=== PATIENT | female | born 1950 | race Caucasian/White ===

== ENCOUNTER 2019-03-12 14:37 | Outpatient (RCR) | payer MEDICARE, MEDICAID, SELFPAY | END 2019-03-27 00:01 | LOC: WOUND 14:37 | PROVIDERS: Family Provider Family Medicine; Visit Provider Nurse Practitioner Family | DX: L98.412 Non-pressure chronic ulcer of buttock with fat layer exposed (principal) ==

== ENCOUNTER 2019-03-30 13:22 | Inpatient (IN) | payer MEDICARE, MEDICAID, SELFPAY ==
[2019-03-30] VITALS (11 sets, daily range): BP systolic 98–135; BP diastolic 60–83; PULSE 78–105; RESP 14–18; TEMP 36.9–37.2; O2SAT 95–100; BMI 31.4
--- NOTE | 2019-03-30 13:30 | ED_ITS ---
Entered by Juliet Yu, acting as scribe for HPI - General Adult General: Chief complaint: Altered Mental Status Stated complaint: low bp/poss sepsis Time Seen by Provider: 03/30/19 13:34 Source: EMS Mode of arrival: EMS History of Present Illness: HPI narrative: Josefina is a very nice 68-year-old female who comes in with a report of fatigue and low blood pressure. There is been no reported fevers that the patient has been on antibiotics in the past for UTIs as well as sacral decubitus ulcers. The patient denies chest pain, shortness of breath, headache, neck pain, abdominal pain, vomiting or diarrhea. MD complaint: possible sepsis Associated symptoms: Deny chest pain, confusion, diaphoresis, dyspnea, headache(s), malaise, nausea, rash, palpitations, syncope or vomiting Review of Systems General: Reports: other (negative unless marked) Const: Denies: fever, chills, body aches, fatigue, malaise or diaphoresis Eyes: Denies: change in vision or blurry vision ENMT: Denies: throat pain, painful swallowing, hoarseness, ear pain, ear discharge, Change in hearing or nasal discharge Card: Denies: chest pain, palpitations, irregular heart rhythm, syncope, pre-syncope, shortness of breath on exertion or shortness of breath when lying down Resp: Reports: productive cough; Denies: shortness of breath, non-productive cough, wheezing, coughing up blood or chest congestion GI: Denies: abdominal pain, nausea, vomiting, vomiting blood, coffee grounds in vomit, diarrhea, constipation, cramping, blood in stool or black tarry stool : Denies: flank pain, painful urination, urinary frequency, urinary urgency, decreased urine ouput, urinary incontinence or blood in urine Musc: Denies: neck pain, back pain, extremity pain, extremity swelling, joint pain, joint swelling, joint warmth or joint stiffness Skin/Breast: Denies: rash, skin tenderness or yellow skin Neuro: Denies: headache, numbness in extremities, weakness in extremities, changes in sensation, lack of coordination, difficulty walking, dizziness, vertigo or confusion Endo: Denies: excessive thirst, tired all the time, cold intolerance, excessive sweating, flushing or hot flashes Rafal/Lymph: Denies: easy bruising, easy bleeding, petechiae or enlarged lymph nodes All/Imm: Denies: hives, throat swelling, tongue swelling, facial swelling or acute wheezing PFSH ED PFSH: Statuses (acute, chronic, etc) shown below reflect problem list status as previously entered and may not be historically accurate Social History Smoking and tobacco status: former smoker Alcohol intake: never Substance/Drug Use: never Physical Exam Const: COMMON NORMALS: no apparent distress, oriented x3, no limitations, healthy appearing and well nourished EXAM LIMITATIONS: no altered mental status GENERAL APPEARANCE: cooperative, well kempt and well developed ORIENTATION/CONSCIOUSNESS: Yes awake HENMT: COMMON NORMALS: normocephalic, head/scalp atraumatic, hearing grossly normal bilaterally, external ears normal, EAC's normal, external nose normal and moist oral mucous membranes HEAD & SCALP: normal to inspection, normocephalic and atraumatic FACE & SINUS: normal facial exam and face symmetric NOSE: external nose normal and nares normal EXTERNAL EAR: Yes external ears normal EXTERNAL AUDITORY CANAL: EAC's normal MOUTH: oral and palatal mucosa normal and tongue normal Eye: COMMON NORMALS: PERRL, EOMs intact bilaterally, conjunctivae normal and no scleral icterus GENERAL EYE: normal appearance of both eyes and normal light reflex CONJUNCTIVA: Yes conjunctivae normal SCLERA: sclerae normal CORNEA: Yes corneas normal PUPIL: Yes PERRL DIRECT OPHTHALMOSCOPY: Yes normal light reflex Neck/C-Spine: COMMON NORMALS: full ROM, no lymphadenopathy, supple, no meningeal signs and no JVD GENERAL: Yes normal visual inspection and Yes trachea midline CERVICAL SPINE: Yes cervical ROM normal Chest: COMMONS NORMALS: inspection of chest normal and palpation of chest normal Resp: COMMON NORMALS: normal respiratory effort, no retractions, no use of accessory muscles and clear to auscultation bilaterally EFFORT & INSPECTION: Yes able to speak in complete sentences AUSCULTATION: clear to auscultation bilaterally Cardio: COMMON NORMALS: no JVD, regular rate, regular rhythm, S1 normal heart sound, S2 normal heart sound, no gallops, no clicks, no murmurs and no rub JUGULAR VENOUS DISTENTION: no JVD RATE: regular rate RHYTHM: regular rhythm HEART SOUNDS: S1 normal and S2 normal GI: COMMON NORMALS: soft to palpation, non-tender, no hepatosplenomegaly and no masses INSPECTION: Yes normal to inspection PALPATION: Yes soft and Yes no hepatosplenomegaly : COMMON NORMALS: Yes no CVA tenderness BLADDER/KIDNEY EXAM: Yes no CVA tenderness Back/Pelvis: COMMON NORMALS: no CVA tenderness, thoracic and lumbar spine normal to inspection, no thoracic nor lumbar tenderness and thoraco-lumbar ROM normal Extremity: COMMON NORMALS: normal to inspection, full ROM, normal capillary refill, no joint enlargement, no clubbing, cyanosis or edema and no calf tenderness Neuro: COMMON NORMALS: oriented x3, CN's II-XII intact bilaterally, moves all extremities, no focal motor deficits and no sensory deficits noted MENINGEAL SIGNS: Yes no meningeal signs Psych: COMMON NORMALS: mental status grossly normal, thought process normal, cooperative, affect normal, speech normal and activity/motor behavior normal APPEARANCE: Yes well kempt SPEECH: Yes normal speech THOUGHT PROCESS: normal thought process Skin: COMMON NORMALS: no rashes or lesions noted, skin turgor normal, no jaundice, no petechiae and no mottling GENERAL SKIN EXAM: no rashes or lesions noted and turgor normal Course Vital Signs: Vital signs: Vital Signs Temperature 98.9 F 03/31/19 03:52 Pulse Rate 90 03/31/19 05:26 Respiratory Rate 16 03/31/19 05:26 Blood Pressure 115/59 03/31/19 03:52 Pulse Oximetry 95 03/31/19 05:26 MDM - General Adult MDM Narrative: Medical decision making narrative: The patient presents from the custodial with altered mental status. The patient has had a sacral decubitus ulcer this being treated. Are going to put her on Primaxin. I have reviewed the case in full with Dr. Parry and he will come to see the patient in the ER. Lab Data: Labs: Lab Results 03/30/19 03/30/19 03/30/19 Range/Units 13:56 13:56 13:56 WBC 12.2 H (4.0-10.0) 10^3/ uL RBC 3.59 L (4.1-5.3) 10^6/u L Hgb 10.1 L (11.5-15.3) g/dL Hct 33.2 L (37.0-47.0) % MCV 92.5 (81-99) fL MCH 28.1 (28.0-34.0) pg MCHC 30.4 (30.0-36.0) g/dL RDW 17.0 H (12.1-15.1) % Plt Count 509 H (130-400) 10^3/c mm MPV 9.4 (7.4-10.4) fL Neut % (Auto) 77.9 % Lymph % (Auto) 14.5 % [place] % (Auto) 5.2 % Eos % (Auto) 1.6 % Baso % (Auto) 0.4 % Neut # (Auto) 9.5 H (1.8-7.7) 10^3/u L Lymph # (Auto) 1.8 (0.8-4.8) 10^3/u L [place] # (Auto) 0.6 (0.2-0.9) 10^3/u L Eos # (Auto) 0.2 (0.0-0.8) 10^3/u L Baso # (Auto) 0.1 (0.0-0.1) 10^3/u L Nucleated RBC % (a uto) 0 % Nucleated RBCs # 0.0 /100WBC ESR (0-15) mm/hr PT 15.40 H (10.5-13.3) SECO NDS INR 1.18 (0.8-1.2) Specimen Type Sample Site ABG pH (7.35-7.45) ABG pCO2 (35-45) mmHg ABG pO2 (80.0-100.0) mmH g ABG HCO3 (22-26) mmol/L ABG Base Excess (-2.0-2.0) mmol/ L Ben Test Hematocrit (37-47) % O2 Liters/Min % Order Checker Packer Processer ID Sodium 138 (136-145) mmol/L Potassium 3.6 (3.5-5.1) mmol/L Chloride 96 L (98-107) mmol/L Carbon Dioxide 30 H (22-29) mmol/L Anion Gap 15.6 (5-19) BUN 26 H (8-23) mg/dL Creatinine 0.4 L (0.5-0.9) mg/dL GFR Calculation 159.7 H (90-130) mL/min Glucose 156 H (74-106) mg/dL POC Glucose (70-110) mg/dL Lactate (0.5-2.2) mmol/L Calcium 8.7 L (8.8-10.2) mg/Dl Magnesium 1.6 L (1.7-2.3) mg/dL Total Bilirubin 0.2 (0.15-1.2) mg/dL AST 15 (0-32) U/L ALT 8 (0-33) U/L Alkaline Phosphata se 137 H (35-105) IU/L Troponin T Baselin e (0-10) ng/mL Troponin T 120 Min [place] (0-10) ng/mL Delta Troponin T (0-10) ABS# C-Reactive Protein (0.0-4.9) mg/L Total Protein 6.2 L (6.6-8.7) g/dL Albumin 2.2 L (3.5-5.2) g/dL Globulin 4.0 (1.3-4.6) g/dL Lipase 5 L (13-60) U/L Procalcitonin (0-0.8) ng/mL 03/30/19 03/30/19 03/30/19 Range/Units 13:56 13:56 13:58 WBC (4.0-10.0) 10^3/ uL RBC (4.1-5.3) 10^6/u L Hgb (11.5-15.3) g/dL Hct (37.0-47.0) % MCV (81-99) fL MCH (28.0-34.0) pg MCHC (30.0-36.0) g/dL RDW (12.1-15.1) % Plt Count (130-400) 10^3/c mm MPV (7.4-10.4) fL Neut % (Auto) % Lymph % (Auto) % [place] % (Auto) % Eos % (Auto) % Baso % (Auto) % Neut # (Auto) (1.8-7.7) 10^3/u L Lymph # (Auto) (0.8-4.8) 10^3/u L [place] # (Auto) (0.2-0.9) 10^3/u L Eos # (Auto) (0.0-0.8) 10^3/u L Baso # (Auto) (0.0-0.1) 10^3/u L Nucleated RBC % (a uto) % Nucleated RBCs # /100WBC ESR 49 H (0-15) mm/hr PT (10.5-13.3) SECO NDS INR (0.8-1.2) Specimen Type Sample Site ABG pH (7.35-7.45) ABG pCO2 (35-45) mmHg ABG pO2 (80.0-100.0) mmH g ABG HCO3 (22-26) mmol/L ABG Base Excess (-2.0-2.0) mmol/ L Ben Test Hematocrit (37-47) % O2 Liters/Min % Order Checker Packer Processer ID Sodium (136-145) mmol/L Potassium (3.5-5.1) mmol/L Chloride (98-107) mmol/L Carbon Dioxide (22-29) mmol/L Anion Gap (5-19) BUN (8-23) mg/dL Creatinine (0.5-0.9) mg/dL GFR Calculation (90-130) mL/min Glucose (74-106) mg/dL POC Glucose (70-110) mg/dL Lactate 3.9 H (0.5-2.2) mmol/L Calcium (8.8-10.2) mg/Dl Magnesium (1.7-2.3) mg/dL Total Bilirubin (0.15-1.2) mg/dL AST (0-32) U/L ALT (0-33) U/L Alkaline Phosphata se (35-105) IU/L Troponin T Baselin e 73 H (0-10) ng/mL Troponin T 120 Min [place] (0-10) ng/mL Delta Troponin T (0-10) ABS# C-Reactive Protein (0.0-4.9) mg/L Total Protein (6.6-8.7) g/dL Albumin (3.5-5.2) g/dL Globulin (1.3-4.6) g/dL Lipase (13-60) U/L Procalcitonin (0-0.8) ng/mL 03/30/19 03/30/19 03/30/19 Range/Units 14:03 14:15 15:54 WBC (4.0-10.0) 10^3/ uL RBC (4.1-5.3) 10^6/u L Hgb (11.5-15.3) g/dL Hct (37.0-47.0) % MCV (81-99) fL MCH (28.0-34.0) pg MCHC (30.0-36.0) g/dL RDW (12.1-15.1) % Plt Count (130-400) 10^3/c mm MPV (7.4-10.4) fL Neut % (Auto) % Lymph % (Auto) % [place] % (Auto) % Eos % (Auto) % Baso % (Auto) % Neut # (Auto) (1.8-7.7) 10^3/u L Lymph # (Auto) (0.8-4.8) 10^3/u L [place] # (Auto) (0.2-0.9) 10^3/u L Eos # (Auto) (0.0-0.8) 10^3/u L Baso # (Auto) (0.0-0.1) 10^3/u L Nucleated RBC % (a uto) % Nucleated RBCs # /100WBC ESR (0-15) mm/hr PT (10.5-13.3) SECO NDS INR (0.8-1.2) Specimen Type Arterial Sample Site Radial, left ABG pH 7.45 (7.35-7.45) ABG pCO2 46.9 H (35-45) mmHg ABG pO2 82.3 (80.0-100.0) mmH g ABG HCO3 32.7 H (22-26) mmol/L ABG Base Excess 7.8 H (-2.0-2.0) mmol/ L Ben Test Pos Hematocrit 30.9 L (37-47) % O2 Liters/Min 2.5 % Order Checker Packer Processer ID monro Sodium (136-145) mmol/L Potassium (3.5-5.1) mmol/L Chloride (98-107) mmol/L Carbon Dioxide (22-29) mmol/L Anion Gap (5-19) BUN (8-23) mg/dL Creatinine (0.5-0.9) mg/dL GFR Calculation (90-130) mL/min Glucose (74-106) mg/dL POC Glucose 157 (70-110) mg/dL Lactate (0.5-2.2) mmol/L Calcium (8.8-10.2) mg/Dl Magnesium (1.7-2.3) mg/dL Total Bilirubin (0.15-1.2) mg/dL AST (0-32) U/L ALT (0-33) U/L Alkaline Phosphata se (35-105) IU/L Troponin T Baselin e (0-10) ng/mL Troponin T 120 Min [place] 64.45 H (0-10) ng/mL Delta Troponin T -8.55 L (0-10) ABS# C-Reactive Protein (0.0-4.9) mg/L Total Protein (6.6-8.7) g/dL Albumin (3.5-5.2) g/dL Globulin (1.3-4.6) g/dL Lipase (13-60) U/L Procalcitonin (0-0.8) ng/mL 03/30/19 Range/Units 15:54 WBC (4.0-10.0) 10^3/ uL RBC (4.1-5.3) 10^6/u L Hgb (11.5-15.3) g/dL Hct (37.0-47.0) % MCV (81-99) fL MCH (28.0-34.0) pg MCHC (30.0-36.0) g/dL RDW (12.1-15.1) % Plt Count (130-400) 10^3/c mm MPV (7.4-10.4) fL Neut % (Auto) % Lymph % (Auto) % [place] % (Auto) % Eos % (Auto) % Baso % (Auto) % Neut # (Auto) (1.8-7.7) 10^3/u L Lymph # (Auto) (0.8-4.8) 10^3/u L [place] # (Auto) (0.2-0.9) 10^3/u L Eos # (Auto) (0.0-0.8) 10^3/u L Baso # (Auto) (0.0-0.1) 10^3/u L Nucleated RBC % (a uto) % Nucleated RBCs # /100WBC ESR (0-15) mm/hr PT (10.5-13.3) SECO NDS INR (0.8-1.2) Specimen Type Sample Site ABG pH (7.35-7.45) ABG pCO2 (35-45) mmHg ABG pO2 (80.0-100.0) mmH g ABG HCO3 (22-26) mmol/L ABG Base Excess (-2.0-2.0) mmol/ L Ben Test Hematocrit (37-47) % O2 Liters/Min % Order Checker Packer Processer ID Sodium (136-145) mmol/L Potassium (3.5-5.1) mmol/L Chloride (98-107) mmol/L Carbon Dioxide (22-29) mmol/L Anion Gap (5-19) BUN (8-23) mg/dL Creatinine (0.5-0.9) mg/dL GFR Calculation (90-130) mL/min Glucose (74-106) mg/dL POC Glucose (70-110) mg/dL Lactate (0.5-2.2) mmol/L Calcium (8.8-10.2) mg/Dl Magnesium (1.7-2.3) mg/dL Total Bilirubin (0.15-1.2) mg/dL AST (0-32) U/L ALT (0-33) U/L Alkaline Phosphata se (35-105) IU/L Troponin T Baselin e (0-10) ng/mL Troponin T 120 Min [place] (0-10) ng/mL Delta Troponin T (0-10) ABS# C-Reactive Protein 39.6 H (0.0-4.9) mg/L Total Protein (6.6-8.7) g/dL Albumin (3.5-5.2) g/dL Globulin (1.3-4.6) g/dL Lipase (13-60) U/L Procalcitonin 0.06 (0-0.8) ng/mL Imaging Data^: CXR: Radiologist's impression: [address] [address] XRay Report Signed Patient: Josefina Lara MR#: [id number] : 1950 Acct:[id number] Age/Sex: 68 / F ADM Date: 03/30/19 Loc: ER Attending Dr: Ordering Physician: Ankita Guzman DO Date of Service: 03/30/19 Procedure(s): XR chest 1V portable [id number] Accession Number(s): [id number] Report Number: [id number] WS: [id number] Portable AP upright chest, 03/30/2019 Clinical Data: cough Comparison: Portable chest, 03/11/2019. Findings: No nodules, masses or effusions are seen. The heart is normal. The pulmonary vascularity is not increased. No pneumonia or pneumothorax is seen. The right PICC line remains in good position ending in the superior vena cava. There is a levoscoliosis of the thoracic spine. XR/XR chest 1V portable [id number] Impression: Negative chest. Dictated By: Dora Hilliard MD Signed By: Dora Hilliard MD Signed Date/Time:03/30/19 1420 DD/ 1419 EKG Data^: EKG 1: Interpretation: EKG at 1335 -normal sinus rhythm at 91 beats a minute, normal axis, nonspecific ST and T wave changes, artifact present. Computer generated interpretation: Chest X-Ray 03/30/19 13:35 Impression: Negative chest. Abdomen/Pelvis CT 03/30/19 17:49 IMPRESSION: 1. Severe constipation with concern for impaction. This has progressed since the prior exam. 2. Unchanged chronic right subcapital femur fracture, osteopenia and severe bony degenerative changes. Stable compression fractures in the spine. 3. Unchanged nephrolithiasis and renal cysts. No hydronephrosis. Unchanged left adrenal myelolipoma and unchanged right renal mild lipoma. Radiation Dose CTDIVOL = (mGy): DLP = 2409.25 (mGy-cm) Discharge Plan Discharge Patient Disposition: Admitted As Inpatient Admit Provider: Marshall Parry Clinical Impression: Altered mental status Qualifiers: Altered mental status type: transient alteration of awareness Qualified Code(s): R40.4 - Transient alteration of awareness Condition: Stable Referrals: Tommie Feliz Jr, MD [Primary Care Provider] - Discharge Date/Time: 03/30/19 22:13 Coding Level of Care Code ED Floorwalker for Chg Fwd Exam Problem Focused The documentation recorded by the Gigi yao Bridget Annette, accurately reflects the service I personally performed and the decisions made by me, Ankita Guzman Mar 30, 2019 13:22
--- NOTE | 2019-03-30 13:35 | XR_ITS ---
WS: [id number] Portable AP upright chest, 03/30/2019 Clinical Data: cough Comparison: Portable chest, 03/11/2019. Findings: No nodules, masses or effusions are seen. The heart is normal. The pulmonary vascularity is not increased. No pneumonia or pneumothorax is seen. The right PICC line remains in good position en ding in the superior vena cava. There is a levoscoliosis of the thoracic spine. XR/XR chest 1V portable [id number] Impression: Negative chest.
--- NOTE | 2019-03-30 13:38 | ECG_ITS ---
Measurements Intervals [place] Rate: 91 P: 76 MS: 125 QRS: 75 QRSD: 122 T: 46 QT: 385 QTc: 475 SINUS RHYTHM POSSIBLE RIGHT VENTRICULAR CONDUCTION DELAY [RSR (QR) IN V1/V2] NONSPECIFIC T-WAVE ABNORMALITY Compared to ECG 02/27/2019 17:09:15 Incomplete right bundle-branch block no longer present T-wave abnormality still present Electronically Signed On 03-30-2019 15:07:54 HEALTH INFORMATION MANAGEMENT DIRECTOR by Jewels Pitts M.D. [email or web address]
[2019-03-30 14:12] LABS: Basophils # 0.1 10^3/uL (0.0-0.1); Basophils % 0.4 %; Eosinophils # 0.2 10^3/uL (0.0-0.8); Eosinophils % 1.6 %; Hematocrit 33.2 % (37.0-47.0); Hemoglobin 10.1 g/dL (11.5-15.3); Lymphocytes # 1.8 10^3/uL (0.8-4.8); Lymphocytes % 14.5 %; Mean Corpuscular HGB Conc 30.4 g/dL (30.0-36.0); Mean Corpuscular Hemoglobin 28.1 pg (28.0-34.0); Mean Corpuscular Volume 92.5 fL (81-99); Mean Platelet Volume 9.4 fL (7.4-10.4); Monocytes # 0.6 10^3/uL (0.2-0.9); Monocytes % 5.2 %; Neutrophils # 9.5 10^3/uL (1.8-7.7); Neutrophils % 77.9 %; Nucleated Red Blood Cells % 0 %; Platelet Count 509 10^3/cmm (130-400); Red Blood Count 3.59 10^6/uL (4.1-5.3); White Blood Count 12.2 10^3/uL (4.0-10.0)
[2019-03-30 14:19] LABS: INR 1.18 (0.8-1.2)
[2019-03-30 14:25] LABS: Lactate (Lactic Acid level) 3.9 mmol/L (0.5-2.2)
[2019-03-30 14:28] LABS: Alanine Aminotransferase 8 U/L (0-33); Albumin Level 2.2 g/dL (3.5-5.2); Alkaline Phosphatase 137 IU/L (35-105); Anion Gap 15.6 (5-19); Aspartate Amino Transferase 15 U/L (0-32); Blood Urea Nitrogen 26 mg/dL (8-23); Calcium 8.7 mg/Dl (8.8-10.2); Carbon Dioxide 30 mmol/L (22-29); Chloride 96 mmol/L (98-107); Glomerular Filtration Rate 159.7 mL/min (90-130); Glucose 156 mg/dL (74-106); Lipase 5 U/L (13-60); Magnesium 1.6 mg/dL (1.7-2.3); Potassium 3.6 mmol/L (3.5-5.1); Sodium 138 mmol/L (136-145); Total Bilirubin 0.2 mg/dL (0.15-1.2); Total Protein 6.2 g/dL (6.6-8.7)
[2019-03-30 14:29] LABS: Troponin(5th) Baseline 73 ng/mL (0-10)
[2019-03-30 14:29] LABS: ABG PCO2 46.9 mmHg (35-45); ABG PH Result 7.45 (7.35-7.45); Arterial Blood Gas Hematocrit 30.9 % (37-47); Base Excess ABG 7.8 mmol/L (-2.0-2.0); Blood Gas Allen Test Pos; Blood Gas LPM 2.5 %; Blood Gas Sample Site Radial, left; Blood Gas Sample Type Arterial; HCO3 ABG 32.7 mmol/L (22-26); PO2 ABG 82.3 mmHg (80.0-100.0)
[2019-03-30] MEDS: sodium chloride 0.9% 1,000 ML 999 ML IV ×2 (14:40→21:23)
[2019-03-30 15:09] LABS: Glucose Point of Care 157 mg/dL (70-110)
--- NOTE | 2019-03-30 15:38 | ECG_ITS ---
Measurements Intervals [facility] Rate: 87 P: 73 MS: 140 QRS: 66 QRSD: 90 T: 45 QT: 378 QTc: 456 SINUS RHYTHM LOW QRS VOLTAGE IN PRECORDIAL LEADS [QRS DEFLECTION < 1.0 mV IN CHEST LEADS] POSSIBLE RIGHT VENTRICULAR CONDUCTION DELAY [RSR (QR) IN V1/V2] WARNING: DATA QUALITY MAY AFFECT INTERPRETATION Compared to ECG 03/30/2019 13:35:37 Low QRS voltage now present T-wave abnormality no longer present Electronically Signed On 03-31-2019 15:03:04 MERCHANDISE DISPLAYER by Merry Ivan M.D. [email or web address]
[2019-03-30 16:14] LABS: Troponin 5 2HR 64.45 ng/mL (0-10)
[2019-03-30 16:17] LABS: Troponin 5 2HR Delta -8.55 ABS# (0-10)
--- NOTE | 2019-03-30 17:49 | CTR_ITS ---
PROCEDURE INFORMATION: Exam: CT Abdomen And Pelvis With Contrast Exam date and time: 03/30/2019 6:45 PM Age: 68 years old Clinical indication: Abdominal pain; Generalized; Additional info: Sacral decubitus ulcere, with sepsis, r/ osteom TECHNIQUE: Imaging protocol: Computed tomography of the abdomen and pelvis with intravenous contrast. Total DLP: 2409.25 mGy-cm Radiation optimization: All CT scans at this facility use at least one of these dose optimization techniques: automated exposure control; mA and/or kV adjustment per patient size (includes targeted exams where dose is matched to clinical indication); or iterative reconstruction. Contrast material: OMNI 300; Contrast volume: 95 ml; Contrast route: LT AC; COMPARISON: CT Abdomen/Pelvis w IV* [id number] 02/28/2019 4:48 AM FINDINGS: Tubes, catheters and devices: A balloon bladder catheter is present. Lungs: There is subpleural atelectasis of the dependent portions of the lungs. Pleural space: There is unchanged mild pleural thickening. Heart: Mitral valve calcification is again noted. Liver: There is a diffuse decrease in hepatic parenchymal density, consistent with fatty infiltration. Gallbladder and bile ducts: Normal. No calcified stones. No ductal dilation. Pancreas: Normal. No ductal dilation. Spleen: Normal. No splenomegaly. Adrenals: There is an unchanged 1.5 cm left adrenal myelolipoma. Kidneys and ureters: There is a 3 cm fluid density cyst upper pole left kidney. There is a 5.0 cm cyst midpole right kidney. There are multiple renal hypodensities that cannot be further characterized on the current examination. There is bilateral nephrolithiasis. The largest calculus is midpole right kidney measuring 8 mm in size. Largest calculus on the left measures 5 mm. There is no hydronephrosis or obstructing calculus. Lobulated collection of fat in the midpole right kidney is unchanged and is a probable myelolipoma measuring 3.3 cm in size. Stomach and bowel: There is a large amount of stool in the colon compatible with severe constipation. There is concern for impaction with marked distension of the distal sigmoid colon and rectum. There is mild rectal wall thickening and perirectal edema compatible with reactive change. This has progressed since the prior exam. Appendix: A normal appendix is identified. Intraperitoneal space: Unremarkable. No free air. No significant fluid collection. Vasculature: The aorta demonstrates moderate atherosclerotic calcification. Lymph nodes: Unremarkable.No enlarged lymph nodes. Bladder: Unremarkable as visualized. Reproductive: Unremarkable as visualized. Bones/joints: Diffuse osteopenia with severe degenerative changes in the lower lumbar spine are noted. Chronic appearing right subcapital femur fracture is unchanged. Osteopenia with model sclerosis and lucency in the left femoral head is unchanged. No acute bony fracture. Chronic appearing compression fracture deformity of L2 and L4 is unchanged. Soft tissues: Unremarkable. Other findings: No ileus or obstruction. CT/CT abdomen pelvis w con* [id number] IMPRESSION: 1. Severe constipation with concern for impaction. This has progressed since the prior exam. 2. Unchanged chronic right subcapital femur fracture, osteopenia and severe bony degenerative changes. Stable compression fractures in the spine. 3. Unchanged nephrolithiasis and renal cysts. No hydronephrosis. Unchanged left adrenal myelolipoma and unchanged right renal mild lipoma. Radiation Dose CTDIVOL = (mGy): DLP = 2409.25 (mGy-cm)
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
[2019-03-30 18:22] LABS: Procalcitonin 0.06 ng/mL (0-0.8)
[2019-03-30 18:28] LABS: Lactic Sepsis W/Reflex 3.4 mmol/L (0.5-2.2)
[2019-03-30 18:40] LABS: C Reactive Protein 39.6 mg/L (0.0-4.9)
[2019-03-30 18:45] LABS: Erythrocyte Sedimentation Rate 49 mm/hr (0-15)
--- NOTE | 2019-03-30 19:30 | PC.NURSE ---
Upon rotating pt from right side to left side, it was noted that her catheter was leaking. 10cc of saline was placed in balloon. Will re-evaluate the catheter again.
--- NOTE | 2019-03-30 19:50 | PC.NURSE ---
Pt gone to radiology.
[2019-03-30 19:53] LABS: Reflex Lactate Order Y
[2019-03-30 21:37] LABS: Troponin 5 6HR 57.35 ng/L (0-10)
[2019-03-30 21:40] LABS: Troponin 5 6HR Delta -15.35 ng/L (0-12)
[2019-03-30 23:47] LABS: Urine Appearance Hazy (CLEAR); Urine Color Yellow (Yellow)
[2019-03-30 23:48] LABS: Bilirubin Urine Neg (NEGATIVE); Blood Urine 3+ (Negative); Glucose Urine UA Norm (Normal); Ketones Urine Negative (Negative); Leukocyte Esterase Urine 1+ (Negative); Nitrate Urine Negative (Negative); Protein Urine Trace (Negative); Specific Gravity, Urine 1.005 (1.005-1.030); Sulfosalicylic Acid Urine Negative; Urobilinogen Urine Norm (Negative); pH Urine 8 (5-7)
[2019-03-30 23:49] LABS: Add Urine Culture? No; Bacteria Urine 1+; RBC Urine 15-25 /hpf (0-2); WBC Urine 40-55 /hpf (0-5)
[2019-03-31] VITALS (11 sets, daily range): BP systolic 105–124; BP diastolic 50–71; PULSE 78–96; RESP 12–20; TEMP 36.6–37.2; O2SAT 94–99
[2019-03-31] MEDS: apixaban 5 mg Tablet 2.5 MG PO ×3 (00:02→17:19)
[2019-03-31] MEDS: atorvastatin 40 mg Tablet 20 MG PO ×2 (00:02→17:17)
[2019-03-31] MEDS: ascorbic acid 500 mg Tablet 1000 MG PO ×3 (00:05→17:19)
[2019-03-31] MEDS: tamsulosin 0.4 mg Capsule PO ×3 (00:06→17:18)
[2019-03-31] MEDS: baclofen 10 mg Tablet PO ×3 (00:06→17:19)
[2019-03-31] MEDS: trazodone 50 mg Tablet PO ×2 (00:06→20:35)
[2019-03-31] MEDS: artificial tears Op Soln 15 mL Btl 1 DROP EYE-BOTH ×5 (00:07→20:34)
[2019-03-31] MEDS: docusate sodium 100 mg Capsule PO ×4 (00:07→17:19)
--- NOTE | 2019-03-31 01:57 | PC.NURSE ---
PT CAME TO FLOOR FROM ED TO ICU10. PT IS NON WEIGHT BEARING AND WAS A TOTAL ASSIST. PT IS IN SINUS RHYTHM. VS T 98.9, HR 89, RR 17, BP 123/75, SPO2 100%. PT HAS PRESSURE ULCERS. ONE IS ON THE SACRUM 5.5X10.4 WITH A DEPTH OF 2.7. THE OTHER IS ON THE RIGHT GLUTEAL FOLD 6.7X6.5 WITH A DEPTH OF 4.0. BOTH HAVE GENTIAN JALYN ON THEM. PT IS A&OX4 AND WAS ABLE TO ANSWER MY QUESTIONS. PT HAS A PICC LINE IN THE RIGHT UA AND A PIDD IN THE LEFT FA, BOTH ARE PATIENT. WILL CONTINUE TO MONITOR.
[2019-03-31 05:30] LABS: Basophils % 0.3 %; Eosinophils # 0.3 10^3/uL (0.0-0.8); Eosinophils % 2.3 %; Hematocrit 30.3 % (37.0-47.0); Hemoglobin 9.3 g/dL (11.5-15.3); Lymphocytes # 1.5 10^3/uL (0.8-4.8); Lymphocytes % 13.7 %; Mean Corpuscular HGB Conc 30.7 g/dL (30.0-36.0); Mean Corpuscular Hemoglobin 29.2 pg (28.0-34.0); Mean Platelet Volume 9.1 fL (7.4-10.4); Monocytes # 0.8 10^3/uL (0.2-0.9); Monocytes % 7.4 %; Neutrophils # 8.4 10^3/uL (1.8-7.7); Neutrophils % 75.8 %; Nucleated Red Blood Cells % 0 %; Platelet Count 418 10^3/cmm (130-400); Red Blood Count 3.19 10^6/uL (4.1-5.3); White Blood Count 11.1 10^3/uL (4.0-10.0)
[2019-03-31 05:51] LABS: INR 1.26 (0.8-1.2)
[2019-03-31 06:01] LABS: Alanine Aminotransferase 7 U/L (0-33); Albumin Level 2.3 g/dL (3.5-5.2); Alkaline Phosphatase 125 IU/L (35-105); Anion Gap 13.6 (5-19); Aspartate Amino Transferase 13 U/L (0-32); Blood Urea Nitrogen 17 mg/dL (8-23); Calcium 8.2 mg/Dl (8.8-10.2); Carbon Dioxide 31 mmol/L (22-29); Chloride 98 mmol/L (98-107); Globulin 2.9 g/dL (1.3-4.6); Glomerular Filtration Rate 222.6 mL/min (90-130); Glucose 90 mg/dL (74-106); Magnesium 1.5 mg/dL (1.7-2.3); Phosphorus 3.5 mg/dL (2.5-4.5); Potassium 3.6 mmol/L (3.5-5.1); Sodium 139 mmol/L (136-145); Total Bilirubin 0.2 mg/dL (0.15-1.2); Total Protein 5.2 g/dL (6.6-8.7)
[2019-03-31 07:19] LABS: Glucose Point of Care 93 mg/dL (70-110)
[2019-03-31] MEDS: glycerin adult supp 1 EACH PR (08:37)
[2019-03-31] MEDS: allopurinol 100 mg Tablet 200 MG PO (08:38)
[2019-03-31] MEDS: pantoprazole DR 40 mg Tablet PO (08:39)
[2019-03-31] MEDS: aspirin 81 mg EC Tablet PO (08:39)
[2019-03-31] MEDS: lurasidone 20 mg Tablet 40 MG PO (08:39)
[2019-03-31] MEDS: FUROsemide 20 mg Tablet PO (08:39)
[2019-03-31] MEDS: levothyroxine 50 mcg Tablet PO (08:39)
[2019-03-31] MEDS: polyethylene glycol 3350 Pkt 17 gm PO (08:39)
[2019-03-31] MEDS: duloxetine 60 mg Capsule PO (08:40)
[2019-03-31 11:00] LABS: Glucose Point of Care 110 mg/dL (70-110)
--- NOTE | 2019-03-31 13:00 | PC.CHAP ---
The patient requested no Clergy visits. Chaplain Carmen Nelson
--- NOTE | 2019-03-31 13:08 | PC.PHAR ---
Pharmacy fall risk eval. Meds to consider for possible concern for sedation, dizziness, orthostatic hypotension(combinations could increase risk) Baclofen Cymbalta Latuda remeron trazodone risperidone Trazodone Nitroglycerin.
[2019-03-31 15:50] LABS: Vancomycin Trough 25.2 ug/mL (10-15)
--- NOTE | 2019-03-31 16:35 | PC.NURSE ---
repositoned frequently and emigdio care done as some bladder spasms noted with incontinence of urine open areas on bottom with prism in wound and covered with optifoam.
[2019-03-31 16:54] LABS: Glucose Point of Care 112 mg/dL (70-110)
--- NOTE | 2019-03-31 17:40 | PC.PT ---
PT note; Dr. 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
--- NOTE | 2019-03-31 19:27 | P.PN_ITS ---
Subjective Subjective: Interval history: awake, alert, able to converse in full meaningful sentences. afebrile, hemodynamically stable, no acute overnight events. eating breakfast this morning Medications: Reviewed: Yes Vitals/I&O/Wt Last Vital Signs Temp 97.9 F 03/31/19 16:00 Pulse 86 03/31/19 16:00 Resp 20 H 03/31/19 16:00 BP 124/57 03/31/19 16:00 Pulse Ox 96 03/31/19 16:00 03/31/19 03/31/19 03/31/19 06:59 14:59 22:59 Intake Total 710 / 1810 900 / 900 554.167 / 1454.167 Output Total 750 / 750 1000 / 1000 Balance -40 / 1060 900 / 900 -445.833 / 454.167 Weight last 48 hrs Weight 88.949 kg Weight 85.729 kg Physical Exam Const: COMMON NORMALS: no apparent distress, oriented x3 and alert Neck/C-Spine: COMMON NORMALS: no JVD Resp: COMMON NORMALS: normal respiratory effort, no retractions, no use of accessory muscles, clear to auscultation bilaterally and percussion normal AUSCULTATION: clear to auscultation bilaterally PERCUSSION: percussion normal Cardio: COMMON NORMALS: no JVD, regular rate, regular rhythm, S1 normal heart sound, S2 normal heart sound, no gallops, no clicks, no murmurs, no rub and peripheral pulses 2+ throughout RATE: regular rate RHYTHM: regular rhythm HEART SOUNDS: S1 normal and S2 normal PERIPHERAL PULSES: pulses 2+ throughout GI: COMMON NORMALS: normal to inspection, nondistended, normoactive bowel sounds, soft to palpation, non-tender, no hepatosplenomegaly, no masses and no bruits PALPATION: Yes soft and Yes no hepatosplenomegaly Neuro: COMMON NORMALS: oriented x3 SENSORIUM/ORIENTATION: Yes alert Urinary Catheter Management^: Ibrahim: Cath Placed During This Visit: no Data Micro: Micro: Microbiology 03/31/19 01:15 Gram Stain - Final Buttock 03/31/19 01:15 Gram Stain - Final Buttock 03/30/19 13:58 Blood Culture - Pr eliminary Blood NEGATIVE TO MARISA E 03/30/19 13:56 Blood Culture - Pr eliminary Blood NEGATIVE TO MARISA E A&P Assessment and plan (1) Sepsis: -Possible sources of infection include chronic Ibrahim, chronic sacral decubitus ulcers -Patient has a history of ESBL E. coli UTIs secondary to chronic Ibrahim cath, secondary to neurogenic bladder -Chronic sacral decubitus ulcers, status debridement, status post IV antibiotics, wounds look clean, good granulation tissue, no foul odor, no discharge noted -follow pending Blood cultures, urine cultures, wound cultures -Broad-spectrum antibiotics Primaxin and vancomycin -DVT prophylaxis Lovenox -Protonix for GI prophylaxis -Wound care for decubitus ulcers Status: Acute Code(s): A41.9 - Sepsis, unspecified organism (2) Recurrent UTI: -Secondary to ESBL E. coli UTI Status: Acute Code(s): N39.0 - Urinary tract infection, site not specified (3) Normocytic anemia: -Hemoglobin is stable at 10.1, status post 4 units PRBC on last admission Status: Acute Code(s): D64.9 - Anemia, unspecified (4) Chronic indwelling Ibrahim catheter: Secondary to neurogenic bladder Status: Acute Code(s): Z96.0 - Presence of urogenital implants (5) Neurogenic bladder: Status: Acute Code(s): N31.9 - Neuromuscular dysfunction of bladder, unspecified (6) Decubitus ulcer of coccygeal region: -Wound care Status: Acute Code(s): L89.159 - Pressure ulcer of sacral region, unspecified stage (7) Paroxysmal A-fib: -Continue Eliquis -As far I can see she is not on any rate control medications Status: Acute Code(s): I48.0 - Paroxysmal atrial fibrillation (8) DVT (deep venous thrombosis): Continue Eliquis Status: Acute Code(s): I82.409 - Acute embolism and thrombosis of unspecified deep veins of unspecified lower extremity (9) Oxygen dependent: Status: Acute Code(s): Z99.81 - Dependence on supplemental oxygen (10) Sacral decubitus ulcer: Wound care Status: Acute Code(s): L89.159 - Pressure ulcer of sacral region, unspecified stage (11) Multiple sclerosis: Status: Acute Code(s): G35 - Multiple sclerosis (12) Non-insulin dependent type 2 diabetes mellitus: Low-dose sliding scale Status: Acute Code(s): E11.9 - Type 2 diabetes mellitus without complications (13) CVA (cerebral vascular accident): Left-sided deficits Status: Acute Code(s): I63.9 - Cerebral infarction, unspecified (14) Altered mental status: Likely secondary to sepsis secondary UTI and sacral coccygeal ulcers Status: Acute Qualifiers: Altered mental status type: transient alteration of awareness Qualified Code(s): R40.4 - Transient alteration of awareness Code(s): R41.82 - Altered mental status, unspecified (15) Elevated troponin: Likely supply demand ischemia related to sepsis No active chest pain Baseline troponin in the 70s, negative delta EKG no ST-T significant wave changes Plan Continue telemetry monitoring, troponins as per protocol, monitor for chest pain, already on aspirin and statin Status: Acute Code(s): R79.89 - Other specified abnormal findings of blood chemistry Attestations Medical Necessity Statement*: sepsis undergoing evlautaion Coding Level of Care Code Acute 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
[2019-03-31] MEDS: mirtazapine 15 mg Tablet 7.5 MG PO ×2 (20:35)
[2019-03-31 22:07] LABS: Glucose Point of Care 124 mg/dL (70-110)
[2019-04-01] VITALS (10 sets, daily range): BP systolic 100–136; BP diastolic 56–76; PULSE 60–85; RESP 15–22; TEMP 36.3–37.2; O2SAT 94–99
--- NOTE | 2019-04-01 04:47 | PC.NURSE ---
PICC REMOVAL Nurse assessed PICC upon transfer from ICU, PICC insertion area appears red, swollen. Dr Nazario notified, pic of PICC line sent to Dr Nazario via [employer] phone. Orders received to DC PICC and send catheter tip to lab for culture. PICC discontinued via sterile procedure, cath tip sent to lab for culture, patient tolerated well.
[2019-04-01 06:32] LABS: Basophils % 0.4 %; Eosinophils # 0.4 10^3/uL (0.0-0.8); Eosinophils % 4.7 %; Hematocrit 31.4 % (37.0-47.0); Hemoglobin 9.5 g/dL (11.5-15.3); Lymphocytes # 1.2 10^3/uL (0.8-4.8); Lymphocytes % 13.8 %; Mean Corpuscular HGB Conc 30.3 g/dL (30.0-36.0); Mean Corpuscular Hemoglobin 28.1 pg (28.0-34.0); Mean Corpuscular Volume 92.9 fL (81-99); Mean Platelet Volume 9.4 fL (7.4-10.4); Monocytes # 0.6 10^3/uL (0.2-0.9); Monocytes % 6.2 %; Neutrophils # 6.7 10^3/uL (1.8-7.7); Neutrophils % 74.5 %; Nucleated Red Blood Cells % 0 %; Platelet Count 410 10^3/cmm (130-400); Red Blood Count 3.38 10^6/uL (4.1-5.3); Red Cell Distribution Width 17.2 % (12.1-15.1)
[2019-04-01 06:49] LABS: Alanine Aminotransferase 7 U/L (0-33); Albumin Level 2.2 g/dL (3.5-5.2); Alkaline Phosphatase 125 IU/L (35-105); Anion Gap 14.2 (5-19); Aspartate Amino Transferase 13 U/L (0-32); Blood Urea Nitrogen 14 mg/dL (8-23); Calcium 8.6 mg/Dl (8.8-10.2); Carbon Dioxide 28 mmol/L (22-29); Chloride 100 mmol/L (98-107); Globulin 3.2 g/dL (1.3-4.6); Glomerular Filtration Rate 123.4 mL/min (90-130); Glucose 99 mg/dL (74-106); Magnesium 1.5 mg/dL (1.7-2.3); Phosphorus 3.5 mg/dL (2.5-4.5); Potassium 3.2 mmol/L (3.5-5.1); Sodium 139 mmol/L (136-145); Total Bilirubin 0.2 mg/dL (0.15-1.2); Total Protein 5.4 g/dL (6.6-8.7)
[2019-04-01 08:50] LABS: Glucose Point of Care 113 mg/dL (70-110)
[2019-04-01] MEDS: allopurinol 100 mg Tablet 200 MG PO (10:45)
[2019-04-01] MEDS: apixaban 5 mg Tablet 2.5 MG PO ×2 (10:46→18:44)
[2019-04-01] MEDS: artificial tears Op Soln 15 mL Btl 1 DROP EYE-BOTH ×3 (10:46→18:48)
[2019-04-01] MEDS: baclofen 10 mg Tablet PO ×2 (10:47→18:44)
[2019-04-01] MEDS: aspirin 81 mg EC Tablet PO (10:47)
[2019-04-01] MEDS: ascorbic acid 500 mg Tablet 1000 MG PO ×2 (10:47→18:44)
[2019-04-01] MEDS: duloxetine 60 mg Capsule PO (10:48)
[2019-04-01] MEDS: FUROsemide 20 mg Tablet PO (10:48)
[2019-04-01] MEDS: duloxetine 30 mg Capsule PO (10:48)
[2019-04-01] MEDS: docusate sodium 100 mg Capsule PO ×3 (10:48→18:44)
[2019-04-01] MEDS: pantoprazole DR 40 mg Tablet PO (10:49)
[2019-04-01] MEDS: lurasidone 20 mg Tablet 40 MG PO (10:49)
[2019-04-01] MEDS: polyethylene glycol 3350 Pkt 17 gm PO (10:49)
[2019-04-01] MEDS: levothyroxine 50 mcg Tablet PO (10:49)
[2019-04-01] MEDS: tamsulosin 0.4 mg Capsule PO ×2 (10:52→18:44)
[2019-04-01] MEDS: sodium chloride 0.9% 250 ML (11:05)
[2019-04-01 11:08] LABS: Glucose Point of Care 102 mg/dL (70-110)
--- NOTE | 2019-04-01 15:54 | PM.PN ---
Subjective Subjective: Interval history: Patient moved out of ICU overnight. PICC line was exit site around it appeared to be unhealthy. Tip sent for culture. Blood cultures remain negative thus far. Urine culture with gram-negative rods pending identification. She has no acute complaints. Medications: Reviewed: Yes Vitals/I&O/Wt Last Vital Signs Temp 98.3 F 04/01/19 15:21 Pulse 68 04/01/19 15:21 Resp 18 04/01/19 15:21 BP 122/66 04/01/19 15:21 Pulse Ox 95 04/01/19 15:21 04/01/19 04/01/19 04/01/19 06:59 14:59 22:59 Intake Total 350 / 4605.161 9678 / 1060 Output Total 100 / 1350 300 / 300 Balance 250 / 554.167 760 / 760 Weight last 48 hrs Weight 90.038 kg Weight 88.949 kg Physical Exam Const: COMMON NORMALS: no apparent distress and alert Neck/C-Spine: COMMON NORMALS: no JVD Resp: COMMON NORMALS: normal respiratory effort, no retractions, no use of accessory muscles, clear to auscultation bilaterally and percussion normal AUSCULTATION: clear to auscultation bilaterally PERCUSSION: percussion normal Cardio: COMMON NORMALS: no JVD, regular rate, regular rhythm, S1 normal heart sound, S2 normal heart sound, no gallops, no clicks, no murmurs, no rub and peripheral pulses 2+ throughout RATE: regular rate RHYTHM: regular rhythm HEART SOUNDS: S1 normal and S2 normal PERIPHERAL PULSES: pulses 2+ throughout GI: COMMON NORMALS: normal to inspection, nondistended, normoactive bowel sounds, soft to palpation, non-tender, no hepatosplenomegaly, no masses and no bruits PALPATION: Yes soft and Yes no hepatosplenomegaly Neuro: SENSORIUM/ORIENTATION: Yes alert Urinary Catheter Management^: Ibrahim: Cath Placed During This Visit: no Data Micro: Micro: Microbiology 03/31/19 01:15 Anaerobic Culture - Preliminary Buttock 03/31/19 01:15 Anaerobic Culture - Preliminary Buttock 03/31/19 01:15 Gram Stain - Final Buttock Wound Culture - Pr eliminary Gram Negative R ods 03/31/19 01:15 Gram Stain - Final Buttock Abscess Culture - Preliminary Gram Negative R ods 03/30/19 17:43 Wound Culture - Pr eliminary Synovial Fluid Gram Negative R ods 03/30/19 23:10 Urine Culture - Pr eliminary Urine Ibrahim Port 03/30/19 13:58 Blood Culture - Pr eliminary Blood NEGATIVE TO MARISA E 03/30/19 13:56 Blood Culture - Pr eliminary Blood NEGATIVE TO MARISA E A&P Assessment and plan (1) Sepsis: -Possible sources of infection include chronic Ibrahim, which makes her susceptible to multiple episodes of UTI Review of past notes, she is to have a urinary strength which is had interval removal. There is no current hardware apart from the Ibraihm catheter remains in place. Current urine culture is with gram-negative rods. From prior prior culture we know that this is likely to be ESBL E. coli -follow pending Blood cultures, urine cultures -Broad-spectrum antibiotics Primaxin. We will discontinue vancomycin. -DVT prophylaxis Lovenox -Protonix for GI prophylaxis -Wound care for decubitus ulcers Status: Acute Code(s): A41.9 - Sepsis, unspecified organism (2) Recurrent UTI: -Polymicrobial organisms identified in the urine in the past. These include Pseudomonas, susceptible and ESBL E. coli, Morganella and Klebsiella pneumonia. Though there appears to be no 1 antibiotic that may be used to suppress all of these organisms we can attempt to use Macrobid suppression chronically to target some of her bacteria alongside of frequent Ibrahim changes and see if it makes a difference in her repeated hospital visits. Status: Acute Code(s): N39.0 - Urinary tract infection, site not specified (3) Normocytic anemia: -Hemoglobin is stable at 10.1, status post 4 units PRBC on last admission Status: Acute Code(s): D64.9 - Anemia, unspecified (4) Chronic indwelling Ibrahim catheter: Secondary to neurogenic bladder Status: Acute Code(s): Z96.0 - Presence of urogenital implants (5) Neurogenic bladder: Status: Acute Code(s): N31.9 - Neuromuscular dysfunction of bladder, unspecified (6) Decubitus ulcer of coccygeal region: -Wound care to continue as outpatient. Per review of past notes patient is known to have sacral decubitus ulcers going back to at least the middle of 2018 for which he has been getting wound care. Unfortunately given that these are in the buttock area which is chronically exposed to fecal contents, there is no way to sterilize these ulcers. I would recommend not to keep checking cultures from these sites as they will only show enteric pathogens which are contaminants to the area. Good wound care debridement and dressings are the only way short of doing a diverting colostomy with eventual plastics closure to help these wounds heal. Repeated courses of antibiotics are unlikely to be helpful in this situation as they would only lead to further resistance. Chronic sacral decub ulcers are rarely the cause of frankly septic picture therefore I do not believe this to be the source of her recurrent severe infections. I am unable to see if a formal MRI has been done to rule out underlying osteomyelitis. I am also unable to see any results of bone biopsy in the past. Given that she has had multiple rounds of antibiotics, doing an MRI to look for osteomyelitis at this point is unlikely to add to her overall clinical picture. Status: Acute Code(s): L89.159 - Pressure ulcer of sacral region, unspecified stage (7) Paroxysmal A-fib: -Continue Eliquis -As far I can see she is not on any rate control medications Status: Acute Code(s): I48.0 - Paroxysmal atrial fibrillation (8) DVT (deep venous thrombosis): Continue Eliquis Status: Acute Code(s): I82.409 - Acute embolism and thrombosis of unspecified deep veins of unspecified lower extremity (9) Oxygen dependent: Status: Acute Code(s): Z99.81 - Dependence on supplemental oxygen (10) Sacral decubitus ulcer: Wound care Status: Acute Code(s): L89.159 - Pressure ulcer of sacral region, unspecified stage (11) Multiple sclerosis: Status: Acute Code(s): G35 - Multiple sclerosis (12) Non-insulin dependent type 2 diabetes mellitus: Low-dose sliding scale Status: Acute Code(s): E11.9 - Type 2 diabetes mellitus without complications (13) CVA (cerebral vascular accident): Left-sided deficits Status: Acute Code(s): I63.9 - Cerebral infarction, unspecified (14) Altered mental status: Likely secondary to sepsis secondary UTI and sacral coccygeal ulcers Status: Acute Qualifiers: Altered mental status type: transient alteration of awareness Qualified Code(s): R40.4 - Transient alteration of awareness Code(s): R41.82 - Altered mental status, unspecified (15) Elevated troponin: Likely supply demand ischemia related to sepsis No active chest pain Baseline troponin in the 70s, negative delta EKG no ST-T significant wave changes Plan Continue telemetry monitoring, troponins as per protocol, monitor for chest pain, already on aspirin and statin Status: Acute Code(s): R79.89 - Other specified abnormal findings of blood chemistry Attestations Medical Necessity Statement*: Admitted for the management of sepsis, likely from urinary source, currently improving. Plan for discharge tomorrow. 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
[2019-04-01 16:18] LABS: Glucose Point of Care 140 mg/dL (70-110)
[2019-04-01] MEDS: atorvastatin 40 mg Tablet 20 MG PO (18:45)
[2019-04-01 21:48] LABS: Glucose Point of Care 125 mg/dL (70-110)
[2019-04-01] MEDS: mirtazapine 15 mg Tablet 7.5 MG PO (22:10)
[2019-04-01] MEDS: trazodone 50 mg Tablet PO (22:11)
[2019-04-02] VITALS (7 sets, daily range): BP systolic 120–156; BP diastolic 68–87; PULSE 68–84; RESP 16–18; TEMP 36.6–37.2; O2SAT 94–97
[2019-04-02 06:10] LABS: Basophils % 0.3 %; Eosinophils # 0.4 10^3/uL (0.0-0.8); Hematocrit 29.4 % (37.0-47.0); Hemoglobin 9.2 g/dL (11.5-15.3); Lymphocytes # 1.9 10^3/uL (0.8-4.8); Lymphocytes % 20.5 %; Mean Corpuscular HGB Conc 31.3 g/dL (30.0-36.0); Mean Corpuscular Hemoglobin 28.4 pg (28.0-34.0); Mean Corpuscular Volume 90.7 fL (81-99); Mean Platelet Volume 9.6 fL (7.4-10.4); Monocytes # 0.5 10^3/uL (0.2-0.9); Monocytes % 5.9 %; Neutrophils # 6.3 10^3/uL (1.8-7.7); Neutrophils % 68.8 %; Nucleated Red Blood Cells % 0 %; Platelet Count 431 10^3/cmm (130-400); Red Blood Count 3.24 10^6/uL (4.1-5.3); Red Cell Distribution Width 17.2 % (12.1-15.1); White Blood Count 9.2 10^3/uL (4.0-10.0)
[2019-04-02 06:35] LABS: Glucose Point of Care 108 mg/dL (70-110)
[2019-04-02 06:37] LABS: Alanine Aminotransferase 7 U/L (0-33); Alkaline Phosphatase 129 IU/L (35-105); Aspartate Amino Transferase 18 U/L (0-32); Blood Urea Nitrogen 17 mg/dL (8-23); Calcium 8.5 mg/Dl (8.8-10.2); Carbon Dioxide 30 mmol/L (22-29); Chloride 103 mmol/L (98-107); Globulin 3.9 g/dL (1.3-4.6); Glomerular Filtration Rate 159.7 mL/min (90-130); Glucose 106 mg/dL (74-106); Magnesium 1.7 mg/dL (1.7-2.3); Phosphorus 3.8 mg/dL (2.5-4.5); Sodium 140 mmol/L (136-145); Total Bilirubin 0.2 mg/dL (0.15-1.2); Total Protein 5.9 g/dL (6.6-8.7)
[2019-04-02] MEDS: polyethylene glycol 3350 Pkt 17 gm PO (09:20)
[2019-04-02] MEDS: docusate sodium 100 mg Capsule PO ×3 (09:21→17:25)
[2019-04-02] MEDS: lurasidone 20 mg Tablet 40 MG PO (09:21)
[2019-04-02] MEDS: duloxetine 60 mg Capsule PO (09:22)
[2019-04-02] MEDS: tamsulosin 0.4 mg Capsule PO ×2 (09:22→17:25)
[2019-04-02] MEDS: ascorbic acid 500 mg Tablet 1000 MG PO ×2 (09:22→17:25)
[2019-04-02] MEDS: pantoprazole DR 40 mg Tablet PO (09:22)
[2019-04-02] MEDS: allopurinol 100 mg Tablet 200 MG PO (09:22)
[2019-04-02] MEDS: FUROsemide 20 mg Tablet PO (09:22)
[2019-04-02] MEDS: apixaban 5 mg Tablet 2.5 MG PO ×2 (09:22→17:24)
[2019-04-02] MEDS: aspirin 81 mg EC Tablet PO (09:22)
[2019-04-02] MEDS: levothyroxine 50 mcg Tablet PO (09:22)
[2019-04-02] MEDS: duloxetine 30 mg Capsule PO (09:22)
[2019-04-02] MEDS: artificial tears Op Soln 15 mL Btl 1 DROP EYE-BOTH ×3 (09:30→17:23)
--- NOTE | 2019-04-02 10:03 | PC.PT ---
pt is [place] resident with chronic MS, bed bound, tanja lift to bedside chair infrequently per pt. no rehab potential, D/C PT services at this time.
[2019-04-02] MEDS: baclofen 10 mg Tablet PO ×2 (11:30→17:25)
[2019-04-02 11:46] LABS: Glucose Point of Care 117 mg/dL (70-110)
--- NOTE | 2019-04-02 11:55 | PC.SOCIAL ---
IMM Page 2 of IMM explained to and signed by patient. Initialed, dated, and timed, and placed back in chart. Copy provided to patient.
[2019-04-02 17:03] LABS: Glucose Point of Care 112 mg/dL (70-110)
[2019-04-02] MEDS: atorvastatin 40 mg Tablet 20 MG PO (17:25)
--- NOTE | 2019-04-02 17:54 | PM.DCS ---
Discharge Providers Date of Admission: 03/30/19 17:56 Date of Discharge: 04/02/19 Attending Provider at Admission: Marshall Parry MD Attending Provider at Discharge: Kerline Malloy MD Primary Care Provider: Tommie Feliz Jr, MD Diagnoses at Discharge Discharge Diagnosis (1) Sepsis: Status: Acute (2) Recurrent UTI: Status: Acute (3) Normocytic anemia: Status: Acute (4) Chronic indwelling Ibrahim catheter: Status: Acute (5) Neurogenic bladder: Status: Acute (6) Decubitus ulcer of coccygeal region: Status: Acute (7) Paroxysmal A-fib: Status: Acute (8) DVT (deep venous thrombosis): Status: Acute (9) Oxygen dependent: Status: Acute (10) Sacral decubitus ulcer: Status: Acute (11) Multiple sclerosis: Status: Acute (12) Non-insulin dependent type 2 diabetes mellitus: Status: Acute (13) CVA (cerebral vascular accident): Status: Acute (14) Altered mental status: Status: Acute Qualifiers: Altered mental status type: transient alteration of awareness Qualified Code(s): R40.4 - Transient alteration of awareness (15) Elevated troponin: Status: Acute Reason for Visit Reason for Visit: Reason For Visit: low bp/poss sepsis Hospital Course Discharge Summary: Taken from H&P: Josefina Lara is a 68 year old female nephrolithiasis status post lithotripsy, left ureteral stent placement and subsequent removal in October 2018, CVA with residual left hemiparesis, [id number] type 2 diabetes mellitus, multiple sclerosis with contractures of lower extremities, hypothyroidism, depression, GERD, history of DVT, on anticoagulation with Eliquis, gout, paroxysmal atrial fibrillation, dysphagia, morbid obesity, acute on chronic sacral decubitus ulcers recently on IV antibiotics, history of frequent UTIs including ESBL, history of neurogenic bladder, chronic Ibrahim catheter placement, chronic normocytic anemia who presents from [facility] due to complaints of hypotension, blood pressure dropping to 80s over 30s, not responding appropriate, looking pale. Recently on March 06, 2019, patient was discharged from [facility] for sepsis secondary to decubitus skin ulcers, and ESBL E. coli UTI. Patient had debridement by Dr. Alvarez as inpatient, was discharged on Primaxin and Rocephin. Cultures from wound grew Proteus, ESBL E. coli, Enterococcus faecalis, E eraffinosus. Patient also suffered a ESBL E. coli UTI secondary to chronic Ibrahim. Patient had a PICC line placed 03/05/2019, has been finished her antibiotic course of Rocephin and Primaxin. According to the nurse, [facility], according to the nurse, the her sacral decubitus ulcers are looking better, no foul discharge, no increased discharge, no fevers. In addition has a chronic Ibrahim, no foul smell to her urine, no changes in her urine color or amount. She had a CT abdomen pelvis upon arrival which showed severe constipation with concern for impaction. And stable compression fractures there was unchanged nephrolithiasis and renal cyst with no hydronephrosis. Blood cultures remain negative. Urine culture showed less than 5000 colonies of probably superficial hermilo. The PICC line insertion site was noted to be dirty and was therefore removed. Active culture is pending at this time. Preliminary appears to be coag negative staph. Per review of past notes patient is known to have sacral decubitus ulcers going back to at least the middle of 2017 for which he has been getting wound care. Unfortunately given that these are in the buttock area which is chronically exposed to fecal contents, there is no way to sterilize these ulcers. I would recommend not to keep checking cultures from these sites as they will only show enteric pathogens which are contaminants to the area. Good wound care debridement and dressings are the only way short of doing a diverting colostomy with eventual plastics closure to help these wounds heal. Repeated courses of antibiotics are unlikely to be helpful in this situation as they would only lead to further resistance. Chronic sacral decub ulcers are rarely the cause of frankly septic picture therefore I do not believe this to be the source of her recurrent severe infections. It is more likely that she could have had a UTI. I am unable to see if a formal MRI has been done to rule out underlying osteomyelitis. I am also unable to see any results of bone biopsy in the past. Given that she has had multiple rounds of antibiotics and is getting good wound care, doing an MRI to look for osteomyelitis at this point is unlikely to add to her overall clinical picture. It is more likely that her decline right now may have been related to a UTI. However this is also unavoidable given the nature of her chronic Ibrahim. Best course of action for this appears to be frequent changing of the Ibrahim catheter good perineal hygiene. Per review of her past urine culture she has grown various organisms with varying susceptibility patterns with no good one antibiotic to take that could help with suppression. Unfortunately the best approach in this case appears to be treating UTIs as they happen based on culture and susceptibility results. For now since blood cultures are negative we will plan to complete a 7-day course of ertapenem Physical Exam Narrative: EXAM NARRATIVE: General awake alert lying in bed. CVS S1-S2 normal RS is clear to auscultation bilaterally Extremity bilateral lower extremity gross atrophy chronic indwelling Ibrahim present Urinary Catheter Management^: Ibrahim: Cath Placed During This Visit: no Discharge Data Data Completed and Pending: Completed Studies During Hospitalization Category Date Time Status CT abdomen pelvis w con* [id number] Urge nt Cat Scan 03/30/19 17:49 Completed XR chest 1V boo ble [id number] Urgent Exams 03/30/19 13:35 Completed Pending at discharge Category Date Time Status Abscess Culture a nd Gram Stain Stat Lab 03/30/19 17:49 Results Anaerobic Culture Routine Lab 03/31/19 01:15 Results Anaerobic Culture Stat Lab 03/30/19 17:49 Results Arterial Blood Ga s W/O Coox Routine Lab 03/30/19 14:15 Results Blood Culture Sta t Lab 03/30/19 13:58 Results Catheter Tip Cult ure Routine Lab 04/01/19 04:20 Results Vancomycin Random Routine Lab 04/02/19 21:00 Ordered Wound Culture Sta t Lab 03/30/19 17:43 Results Wound Culture and Gram Stain Routin e Lab 03/31/19 01:15 Results Labs from last 24 hours 04/02/19 04/02/19 04/02/19 16:45 11:37 06:31 WBC RBC Hgb Hct MCV MCH MCHC RDW Plt Count MPV Neut % (Auto) Lymph % (Auto) Esmeralda % (Auto) Eos % (Auto) Baso % (Auto) Neut # (Auto) Lymph # (Auto) Esmeralda # (Auto) Eos # (Auto) Baso # (Auto) Nucleated RBC % (a uto) Nucleated RBCs # Sodium Potassium Chloride Carbon Dioxide Anion Gap BUN Creatinine GFR Calculation Glucose POC Glucose 112 117 108 Calcium Phosphorus Magnesium Total Bilirubin AST ALT Alkaline Phosphata se Total Protein Albumin Globulin Vancomycin Trough 04/02/19 04/02/19 04/01/19 05:38 05:38 21:36 WBC 9.2 RBC 3.24 L Hgb 9.2 L Hct 29.4 L MCV 90.7 MCH 28.4 MCHC 31.3 RDW 17.2 H Plt Count 431 H MPV 9.6 Neut % (Auto) 68.8 Lymph % (Auto) 20.5 Esmeralda % (Auto) 5.9 Eos % (Auto) 4.0 Baso % (Auto) 0.3 Neut # (Auto) 6.3 Lymph # (Auto) 1.9 Esmeralda # (Auto) 0.5 Eos # (Auto) 0.4 Baso # (Auto) 0.0 Nucleated RBC % (a uto) 0 Nucleated RBCs # 0.0 Sodium 140 Potassium 4.0 Chloride 103 Carbon Dioxide 30 H Anion Gap 11.0 BUN 17 Creatinine 0.4 L GFR Calculation 159.7 H Glucose 106 POC Glucose 125 Calcium 8.5 L Phosphorus 3.8 Magnesium 1.7 Total Bilirubin 0.2 AST 18 ALT 7 Alkaline Phosphata se 129 H Total Protein 5.9 L Albumin 2.0 L Globulin 3.9 Vancomycin Trough 04/01/19 21:11 WBC RBC Hgb Hct MCV MCH MCHC RDW Plt Count MPV Neut % (Auto) Lymph % (Auto) Esmeralda % (Auto) Eos % (Auto) Baso % (Auto) Neut # (Auto) Lymph # (Auto) Esmeralda # (Auto) Eos # (Auto) Baso # (Auto) Nucleated RBC % (a uto) Nucleated RBCs # Sodium Potassium Chloride Carbon Dioxide Anion Gap BUN Creatinine GFR Calculation Glucose POC Glucose Calcium Phosphorus Magnesium Total Bilirubin AST ALT Alkaline Phosphata se Total Protein Albumin Globulin Vancomycin Trough 40.0 H* Vitals: Last Vital Signs Temp 97.9 F 04/02/19 15:38 Pulse 82 04/02/19 17:34 Resp 18 04/02/19 15:38 BP 120/76 04/02/19 15:38 Pulse Ox 96 04/02/19 17:34 Discharge Plan Discharge Patient Disposition: Xfer SNF Condition: Stable Prescriptions: New ertapenem 1 gram recon soln 1 gm IV DAILY 3 Days Qty: 1 RF: 0 Continued trazodone 50 mg Tablet 50 mg PO BEDTIME RF: 0 Zofran 4 mg Tablet 4 mg PO Q4H PRN (Reason: Nausea) RF: 0 Gummi Bear Multivitamin Tablet,Chewable 1 tab PO DAILY RF: 0 Flomax 0.4 mg Capsule 0.4 mg PO BID RF: 0 baclofen 10 mg Tablet 10 mg PO BID RF: 0 Synthroid 50 mcg Tablet 50 mcg PO DAILY RF: 0 Dulcolax (bisacodyl) 10 mg Suppository 10 mg HI DAILY PRN (Reason: Constipation) RF: 0 simvastatin 20 mg Tablet 20 mg PO QPM RF: 0 metformin 1,000 mg Tablet 1,000 mg PO BID RF: 0 Colace 100 mg Capsule 100 mg PO BID RF: 0 Lasix 20 mg Tablet 20 mg PO DAILY RF: 0 artificial tears(hypromellose) 0.3 % Drops 1 drp OPHTHALMIC (EYE) QID RF: 0 Culturelle 10 billion cell Capsule 1 cap PO DAILY RF: 0 Saline Mist 0.65 % Aerosol,[place] 1 spray INTRANASAL QID RF: 0 Cymbalta 60 mg Capsule,Delayed Release(Dr/Ec) 60 mg PO DAILY RF: 0 Aspir-81 81 mg PO DAILY RF: 0 Vitamin C 1,000 mg Tablet 1,000 mg PO BID RF: 0 albuterol sulfate 2.5 mg /3 mL (0.083 %) Solution For Nebulization 2.5 mg INHALATION QID PRN (Reason: Shortness Of Breath) RF: 0 Nitromist 400 mcg/spray Aerosol,[place] 1 spray translingual PRN RF: 0 allopurinol 100 mg Tablet 200 mg PO DAILY RF: 0 methenamine hippurate 1 gram Tablet 1 g PO BID RF: 0 Milk of Magnesia 400 mg/5 mL Suspension 30 ml PO DAILY PRN (Reason: Constipation) RF: 0 Protonix 40 mg Tablet,Delayed Release (Dr/Ec) 40 mg PO DAILY RF: 0 Remeron 15 mg Tablet 7.5 mg PO BEDTIME RF: 0 Normal Saline Flush Syringe See Rx Instructions .ROUTE .COMPLEX RF: 0 Risperdal Consta 25 mg/2 mL Syringe 25 mg IM Q14D RF: 0 Cymbalta 30 mg Capsule,Delayed Release(Dr/Ec) 30 mg PO DAILY RF: 0 Dakin's Solution 0.125 % Solution See Rx Instructions .ROUTE .COMPLEX RF: 0 Eucerin Cream 1 applic TOPICAL BID PRN (Reason: Dry Skin) RF: 0 Latuda 40 mg Tablet 40 mg PO DAILY RF: 0 Eliquis 2.5 mg Tablet 2.5 mg PO BID RF: 0 Prostat Liq 15 ml PO TID RF: 0 Discharge Orders: Discharge Order (Routine); Ordered 04/02/19 Ordered By: Kerline Malloy Referrals: [facility] [Other] Tommie Feliz Jr, MD [Primary Care Provider] - (f/up on pending catheter tip culture from PICC line. If coagulase negative staph- nothing further to be done as blood cx is negative. If staph aureus, will need additional therapy ) Discharge Diet: Usual diet Discharge Activity: Resume usual activity Patient Instructions: Ertapenem (Injection), Leg Fracture (DC), Urinary Tract Infection in Women (DC), Multiple Sclerosis (DC), Sepsis (DC), Ischemic Stroke (DC), Pressure Ulcer (DC) Discharge Attestations Time Spent in Discharge Care*: greater than 30 min Quality Metrics Clinical Quality Measures During this hospital stay, did patient experience: None Coding Level of Care Code Acute Director Patient Financial Services for Chg Fwd Diagnoses Sepsis A41.9 Recurrent UTI N39.0 Normocytic anemia D64.9 Chronic indwelling Ibrahim catheter Z96.0 Neurogenic bladder N31.9 Decubitus ulcer of coccygeal region L89.159 Paroxysmal A-fib I48.0 DVT (deep venous thrombosis) I82.409 Oxygen dependent Z99.81 Sacral decubitus ulcer L89.159 Multiple sclerosis G35 Non-insulin dependent type 2 diabetes mellitus E11.9 CVA (cerebral vascular accident) I63.9 Altered mental status R40.4 Altered mental status type: transient alteration of awareness Elevated troponin R79.89
--- NOTE | 2019-04-03 16:46 | PC.SOCIAL ---
Notified Dr Malloy of Wound culture results per micro. One organism being Carbapenem resistant. She is aware. AT this time no further orders needed. She will review cultures to ensure not on blood culture if further orders needed will let me know.
[2019-04-04 08:31] LABS: Oxygen Device NC
== END 2019-04-02 22:00 | disposition skilled nursing facility (03) | DRG 872 ==
LOC: ER 17:28 → ICU 21:58 → MEDSURG 04-01 02:26
PROVIDERS: Admitting Provider Family Medicine; Emergency Provider Emergency Medicine; Family Provider Family Medicine; PCP Family Medicine; Visit Provider Student in an Organized Health Care Education/Training Program
DX: A41.9 Sepsis, unspecified organism (principal); I69.354 Hemiplegia and hemiparesis following cerebral infarction affecting left non-dominant side; I82.409 Acute embolism and thrombosis of unspecified deep veins of unspecified lower extremity; N39.0 Urinary tract infection, site not specified; I24.8 Other forms of acute ischemic heart disease; S72.011D Unspecified intracapsular fracture of right femur, subsequent encounter for closed fracture with routine healing; X58.XXXD Exposure to other specified factors, subsequent encounter; M85.80 Other specified disorders of bone density and structure, unspecified site; Z96.0 Presence of urogenital implants; E11.9 Type 2 diabetes mellitus without complications; Z79.84 Long term (current) use of oral hypoglycemic drugs; G35 Multiple sclerosis; E03.9 Hypothyroidism, unspecified; F32.9 Major depressive disorder, single episode, unspecified; Z86.718 Personal history of other venous thrombosis and embolism; Z79.01 Long term (current) use of anticoagulants; I48.0 Paroxysmal atrial fibrillation; M10.9 Gout, unspecified; R13.10 Dysphagia, unspecified; E66.01 Morbid (severe) obesity due to excess calories; Z68.33 Body mass index [BMI] 33.0-33.9, adult; L89.159 Pressure ulcer of sacral region, unspecified stage; N31.9 Neuromuscular dysfunction of bladder, unspecified; D64.9 Anemia, unspecified; Z99.81 Dependence on supplemental oxygen; F03.90 Unspecified dementia, unspecified severity, without behavioral disturbance, psychotic disturbance, mood disturbance, and anxiety; Z87.891 Personal history of nicotine dependence; B96.20 Unspecified Escherichia coli [E. coli] as the cause of diseases classified elsewhere; Z79.82 Long term (current) use of aspirin
CPT/HCPCS: 36415; 36416; 36592; 36600; 51702; 71045; 74177; 80053; 80202; 81001; 82803; 82962; 83605; 83690; 83735; 84100; 84145; 84484; 85025; 85610; 85651; 86140; 87040; 87070; 87075; 87077; 87086; 87186; 87205; 93005; 94664; 97165; 99283; J0743; J3370; J7030; J7050; Q9967

== ENCOUNTER 2019-05-14 09:25 | Outpatient (CLI) | payer MEDICARE, MEDICAID, SELFPAY ==
--- NOTE | 2019-05-14 09:37 | XR_ITS ---
WS: [id number] XR KUB [id number] REASON FOR EXAM: RIGHT URETERAL CALCULUS FINDINGS: Right kidney again shows the 5.6 mm stone. There is scoliotic curve convex to the left. There is marked degenerated changes L4-L5. The ureter show no definite stones. The right hip again shows a subcapital fracture showing some avascular necrosis now. There is marked fecal stasis throughout the colon. XR/XR KUB [id number] IMPRESSION: Unchanged right renal calculus. Marked fecal stasis. The subcapital fracture of the right proximal femur is again noted.
== END 2019-05-14 09:26 | disposition home or self-care (01) ==
PROVIDERS: Family Provider Family Medicine; PCP Family Medicine; Visit Provider Urology
DX: N20.1 Calculus of ureter (principal); N20.0 Calculus of kidney
CPT/HCPCS: 74018

== ENCOUNTER 2019-05-23 13:53 | Outpatient (RCR) | payer MEDICARE, MEDICAID, SELFPAY | END 2019-05-26 23:59 | disposition home or self-care (01) | LOC: WOUND 13:53 | PROVIDERS: Family Provider Family Medicine; PCP Family Medicine; Visit Provider Nurse Practitioner Family | DX: I96 Gangrene, not elsewhere classified (principal); L89.153 Pressure ulcer of sacral region, stage 3; L89.323 Pressure ulcer of left buttock, stage 3; L89.222 Pressure ulcer of left hip, stage 2 | CPT/HCPCS: 11042; 11045; 87070; 87077; 87176; 87186; 87205; 99213; G0463 ==

== ENCOUNTER 2019-05-30 11:00 | Day surgery (SDC) | payer MEDICARE, MEDICAID, SELFPAY ==
[2019-05-29 15:34] VITALS: BMI 33.3
[2019-05-30 10:05] VITALS: BP 122/51; PULSE 78; RESP 20; TEMP 36.3; O2SAT 97
--- NOTE | 2019-05-30 10:13 | P.HP_ITS ---
Providers/Chief Complaint Primary Care Provider: Tommie Feliz Jr, MD Chief Complaint: sacral decubitus ulcer History of Present Illness Josefina Lara is a 68 year old female who is a senior care resident and has had a chronic sacral decubitus ulcer which is being cared for at the senior care. Patient has extensive necrotic tissue which requires surgical debridement cannot be performed at the bedside. Patient denies any significant pain fevers or chills. Review of Systems General: Reports: 10 or more systems reviewed and unremarkable except in HPI and below Medications/Allergies Allergies Allergy/AdvReac Type Severity Reaction Status Date / Time acetaminophen [From Tylenol] Allergy Unknown Unknown Verified 05/29/19 14:20 codeine Allergy Unknown Unknown Verified 05/29/19 14:20 hydrocodone Allergy Unknown Unknown Verified 05/29/19 14:20 latex Allergy Unknown Unknown Verified 05/29/19 14:20 morphine Allergy Unknown Unknown Verified 05/29/19 14:20 zolpidem [From Ambien] Allergy Unknown Unknown Verified 05/29/19 14:20 PFSH Acute PFSH: Medical History CVA (cerebral vascular accident) Dementia Depression DVT (deep venous thrombosis) History of ESBL E. coli infection Morbid obesity Multiple sclerosis Nephrolithiasis Non-insulin dependent type 2 diabetes mellitus Oxygen dependent Paroxysmal A-fib Ureteral stenosis, left Surgical History S/P debridement Social History Smoking and tobacco status: former smoker Alcohol intake: never Adopted: No Caregiver/support person: No Housing: Assisted Living Facility History of recent travel: No Current gender identity: Female Vitals/I&O/Wt Last Vital Signs Temp 97.4 F L 05/30/19 10:05 Pulse 78 05/30/19 10:05 Resp 20 H 05/30/19 10:05 BP 122/51 05/30/19 10:05 Pulse Ox 97 05/30/19 10:05 Weight last 48 hrs Weight 200 lb Physical Exam Narrative: EXAM NARRATIVE: HEENT: Normocephalic Eye: Sclera /conjunctiva normal Respiratory and chest: Bilateral clear breath sounds on auscultation Cardiovascular: Normal S1 and S2 heart sounds Abdomen: Soft to palpation Neurological: Oriented to place person and time Skin: Intact, 8 x 6 cm stage IV sacral decubitus ulcer with necrotic tissue A&P Assessment and plan (1) Sacral decubitus ulcer: Plan for debridement under MAC Procedure, risks, benefits and alternatives have been discussed with the patient who wishes to proceed with surgery. 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
--- NOTE | 2019-05-30 10:20 | ANES.PREANE2 ---
Pre-Anesthetic Assessment Pre-Anesthetic Assessment: Height/Weight: Height 1.65 m Weight 90.718 kg Temp Pulse Resp BP Pulse Ox 97.4 F L 78 20 H 122/51 97 05/30/19 10:05 05/30/19 10:05 05/30/19 10:05 05/30/19 10:05 05/30/19 10:05 Preop Diagnosis: Sacral decubitus ulcer Proposed Procedure: Operation Date: 05/30/19 11:10 Proposed Procedures p DEBRIDMEMENT OF GLUTEAL WOUND 78004/L89.93(Not Applicable) - Beto Alvarez MD Last Intake: 23:59 Social: Social History: Tobacco Comment: quit Exam: Pre-Anes Outpt Exam: alert, oriented x 3, clear to auscultation bilaterally and regular rate & rhythm Airway: Submandibular: WNL Cervical ROM: Other MP: 3 Pulmonary: Comments: home O2 CV/HEM: CV/HEM: Afib and DVT : Comments: nephrolithiasis Left ureteral stenosis GI: GI: GERD Metabolic: Metabolic: DM, Hyperlipidemia, Morbid obesity and Thyroid Musc/skel: Comments: Multiple sclerosis Neuropsych: Neuropsych: CVA and Dementia Anesthetic Plan: ASA status: 4 Anesthesia: MAC PFSH Anesthesia PFSH: Medical History CVA (cerebral vascular accident) Dementia Depression DVT (deep venous thrombosis) History of ESBL E. coli infection Morbid obesity Multiple sclerosis Nephrolithiasis Non-insulin dependent type 2 diabetes mellitus Oxygen dependent Paroxysmal A-fib Ureteral stenosis, left Surgical History S/P debridement Social History Smoking and tobacco status: former smoker Alcohol intake: never Adopted: No Caregiver/support person: No Housing: Assisted Living Facility History of recent travel: No Current gender identity: Female Data Anesthesia Cardiac Studies: No Data to Display
[2019-05-30] MEDS: sodium chloride 0.9% 1,000 ML 30 ML IV (10:59)
[2019-05-30] MEDS: vancomycin 1,000 MG in sodium chloride 0.9% 250 ML 250 MG IV (11:00)
[2019-05-30 11:12] VITALS: BP 116/78; PULSE 70; RESP 18; TEMP 36.5; O2SAT 100
--- NOTE | 2019-05-30 13:50 | PM.OP ---
Operative Report Date of procedure: May 30, 2019 Pre-op Diagnosis: Sacral decubitus ulcer Post-op Diagnosis: Left hip wound measuring 7 x 4 x 8 cm Sacral decubitus ulcer measuring 7 x 7 x 3 cm deep Procedure Done: Excisional debridement of left hip wound measuring 7 x 4 x 8 cm Excisional debridement of sacral decubitus ulcer measuring 7 x 7 x 3 cm Specimens removed/disposition: Left ischial bone cultures Pathology: none sent Surgeon: Beto Alvarez Anesthesia: MAC Condition: stable Disposition: same day Procedure: The patient was taken to the operating room and placed in the lateral position under MAC after IV antibiotic had been administered. The area around the left sacral wound on the left hip was prepped and draped in a sterile manner. Using electrocautery excisional debridement of necrotic skin subcutaneous tissue and muscle was performed on the sacral wound which after debridement measured 7 x 7 x 3 cm deep. Hemostasis ensured with cautery, wound was irrigated and packed. Surgicel, Kerlix gauze and covered with ABDs. Using electrocautery excisional debridement of necrotic skin, subcutaneous tissue and muscle was performed on the left hip wound with the final defect measuring 7 x 4 x 8 cm deep. Wound was irrigated saline, hemostasis ensured. Using a rongeur the bone biopsy of the left ischial bone was obtained. Wound was packed with Surgicel, Kerlix gauze and covered with ABDs Patient was transferred to recovery room in stable condition.
[2019-05-30 14:20] VITALS: BP 124/53; PULSE 84; RESP 18; TEMP 36.6; O2SAT 100
--- NOTE | 2019-05-30 15:38 | SUR.PREOP ---
ADDITIONAL DRESSING APPLIED. NO ACTIVE BLEEDING. PO FLUIDS GIVEN.
--- NOTE | 2019-05-30 15:45 | SUR.PREOP ---
[facility] CALLED AND REPORT GIVEN TO LAKISHA REEDER. PT STABLE FOR TRANSPORT. VERBAL INSTRUCTIONS GIVEN TO LAKISHA REEDER. WRITTEN INSTRUCTIONS TO ACCOMPANY PT.
== END 2019-05-30 15:55 | disposition home or self-care (01) ==
PROVIDERS: Family Provider Family Medicine; PCP Family Medicine; Visit Provider Surgery
PROC: (CPT 11043; principal; 2019-05-30 11:10)
DX: L89.159 Pressure ulcer of sacral region, unspecified stage (principal); L98.499 Non-pressure chronic ulcer of skin of other sites with unspecified severity; Z86.73 Personal history of transient ischemic attack (TIA), and cerebral infarction without residual deficits; Z86.718 Personal history of other venous thrombosis and embolism; E66.01 Morbid (severe) obesity due to excess calories; Z68.33 Body mass index [BMI] 33.0-33.9, adult; F03.90 Unspecified dementia, unspecified severity, without behavioral disturbance, psychotic disturbance, mood disturbance, and anxiety; Z99.81 Dependence on supplemental oxygen; I48.20 Chronic atrial fibrillation, unspecified; Z87.891 Personal history of nicotine dependence; K21.9 Gastro-esophageal reflux disease without esophagitis
CPT/HCPCS: 11043; 11046 ×4; 12345; 87070; 87077; 87176; 87186; 87205; 96365; J3010; J3370; J7030; J7050

== ENCOUNTER 2019-05-31 02:32 | Inpatient (IN) | payer MEDICARE, MEDICAID, SELFPAY ==
[2019-05-31] VITALS (57 sets, daily range): BP systolic 74–129; BP diastolic 27–81; PULSE 65–99; RESP 12–22; TEMP 36.1–37.4; O2SAT 87–100; BMI 41.5
--- NOTE | 2019-05-31 02:36 | ED_ITS ---
Entered by Mary Li, acting as scribe for Jerardo Castillo MD HPI - Weakness General: Chief complaint: Altered Mental Status Stated complaint: SHOCK Time Seen by Provider: 05/31/19 02:35 Source: EMS Mode of arrival: EMS History of Present Illness: HPI Narrative: 68 y/o female presents ED with excessive blood loss and AMS. Pt had an [facility] of a buttock abscess. [facility] [phone] by BLS, post sx. It is unknown how long she has been bleeding.NH told EMS she has significantly reduced alertness. EMS report she was cold, clammy and nearly unresponsive upon their arrival. Pt appears very pale and lethargic ( BP 90s/70s). Complaint: generalized weakness (blood loss/AMS) Onset (ago): day(s) Duration: progressively worsening Location: generalized Severity: moderate Context: recent surgery Review of Systems General: Reports: ROS unobtainable due to mental status (pt pale, lethargic and does not awaken easily) Const: Denies: body aches or change in appetite Eyes: Denies: blurry vision or eye discomfort ENMT: Denies: throat pain or dental pain Resp: Denies: shortness of breath GI: Denies: abdominal pain or diarrhea Musc: Denies: neck pain or back pain Skin/Breast: Denies: rash Psych: Denies: depression All/Imm: Denies: hives PFSH ED PFSH: Social History Smoking and tobacco status: unknown if ever smoked Alcohol intake: never Adopted: No Caregiver/support person: No Housing: Assisted Living Facility History of recent travel: No Current gender identity: Female Physical Exam Const: COMMON NORMALS: negative for oriented x3 EXAM LIMITATIONS: altered mental status GENERAL APPEARANCE: lethargic and ill appearing NUTRITIONAL APPEARANCE: obese ORIENTATION/CONSCIOUSNESS: Yes lethargic HENMT: COMMON NORMALS: normocephalic and head/scalp atraumatic HEAD & SCALP: normocephalic and atraumatic Eye: COMMON NORMALS: PERRL and EOMs intact bilaterally PUPIL: Yes PERRL Neck/C-Spine: COMMON NORMALS: full ROM and supple Chest: COMMONS NORMALS: inspection of chest normal and palpation of chest normal Resp: COMMON NORMALS: normal respiratory effort, no retractions, no use of accessory muscles and clear to auscultation bilaterally AUSCULTATION: clear to auscultation bilaterally Cardio: COMMON NORMALS: regular rate, regular rhythm and no murmurs RATE: regular rate RHYTHM: regular rhythm GI: COMMON NORMALS: normal to inspection, nondistended, normoactive bowel sounds, soft to palpation, non-tender and no masses PALPATION: Yes soft Neuro: COMMON NORMALS: negative for oriented x3 SENSORIUM/ORIENTATION: Yes lethargic Skin: WOUNDS: Yes wounds noted (debrided wounds noted to buttocks - minmal bleeding visualized) WOUNDS: Yes wounds noted (debrided wounds noted to buttocks - minmal bleeding visualized) Course Vital Signs: Vital signs: Vital Signs Pulse Rate 88 05/31/19 03:57 Respiratory Rate 16 05/31/19 03:57 Blood Pressure 98/47 05/31/19 03:57 Pulse Oximetry 98 05/31/19 03:57 MDM - Weakness MDM Narrative: Medical decision making narrative: Patient presents here with hemorrhagic shock causing her hypotension and anemia. Patient had bleeding from her wounds on her decubitus ulcers. Patient's bleeding currently has stopped and I repacked her wound. Patient will get 2 units of blood and I spoke to the hospitalist and will admit to the ICU. Patient does have an elevated white count likely due to her hemorrhagic shock. She has no signs of infection here. Lab Data: Labs: Lab Results 05/31/19 05/31/19 05/31/19 Range/Units 02:41 02:41 03:40 WBC 31.1 H* (4.0-10.0) 10^3/ uL RBC 2.51 L (4.1-5.3) 10^6/u L Hgb 6.6 L (11.5-15.3) g/dL Hct 23.0 L (37.0-47.0) % MCV 91.6 (81-99) fL MCH 26.3 L (28.0-34.0) pg MCHC 28.7 L (30.0-36.0) g/dL RDW 17.4 H (12.1-15.1) % Plt Count 1354 H (130-400) 10^3/c mm MPV 10.4 (7.4-10.4) fL Neut % (Auto) 84.2 % Lymph % (Auto) 9.2 % Wise % (Auto) 4.0 % Eos % (Auto) 0.0 % Baso % (Auto) 0.3 % Neut # (Auto) 26.1 H (1.8-7.7) 10^3/u L Lymph # (Auto) 2.9 (0.8-4.8) 10^3/u L Wise # (Auto) 1.3 H (0.2-0.9) 10^3/u L Eos # (Auto) 0.0 (0.0-0.8) 10^3/u L Baso # (Auto) 0.1 (0.0-0.1) 10^3/u L Nucleated RBC % (a uto) 0 % Nucleated RBCs # 0.0 /100WBC PT 18.80 H (10.5-13.3) SECO NDS INR 1.52 H (0.8-1.2) Sodium 138 (136-145) mmol/L Potassium 5.3 H (3.5-5.1) mmol/L Chloride 98 (98-107) mmol/L Carbon Dioxide 20 L (22-29) mmol/L Anion Gap 25.3 H (5-19) BUN 20 (8-23) mg/dL Creatinine 1.0 H (0.5-0.9) mg/dL GFR Calculation 55.5 L (90-130) mL/min Glucose 265 H (65-115) mg/dL Calcium 9.5 (8.5-10.5) mg/dL Total Bilirubin 0.2 (0.15-1.2) mg/dL AST 45 H (0-32) U/L ALT 36 H (0-33) U/L Alkaline Phosphata se 163 H (35-105) IU/L Total Protein 7.4 (6.6-8.7) g/dL Albumin 1.8 L (3.5-5.2) g/dL Globulin 5.6 H (1.3-4.6) g/dL Imaging Data^: CXR: Attestation: I personally reviewed and interpreted this imaging study as follows: My impression: No acute abnormality EKG Data^: EKG 1: Attestation: I personally reviewed and interpreted this EKG as follows: EKG interpretation date: 05/31/19 EKG interpretation time: 03:08 Interpretation: Normal sinus rhythm heart rate [address] or T wave abnormalities right bundle branch block QRS 149 QTc 435 Critical Care Time Critical Care Time: Critical Care Time: Yes Total Critical Care Time: 35 Attestation: This case had a high probability of a clinically significant, sudden, or life threatening deterioration of this patient's condition which required my full and direct attention, intervention and personal management. Discharge Plan Discharge Patient Disposition: Admitted As Inpatient Clinical Impression: Anemia, Hemorrhagic shock Decubitus ulcer of coccygeal region Qualifiers: Pressure injury stage: unspecified pressure injury stage Qualified Code(s): L89.159 - Pressure ulcer of sacral region, unspecified stage Condition: Stable Referrals: Tommie Feliz Jr, MD [Primary Care Provider] - Coding Level of Care Code ED Sausage Grinder for Chg Fwd Exam Comprehensive The documentation recorded by the Guillermo yao Ashley, accurately reflects the service I personally performed and the decisions made by me, Jerardo Castillo MD May 31, 2019 02:32
--- NOTE | 2019-05-31 02:49 | XR_ITS ---
WS: [id number] XR chest 1V portable [id number] REASON FOR EXAM: cp FINDINGS: Comparisons were made to March 30, 2019. No masses, effusion, pneumonia are seen. Mild decreased vascularity of both lung ward suggesting centrilobular emphysema. The heart was not enlarged. There is degenerate changes throughout the thoracic spine. XR/XR chest 1V portable [id number] IMPRESSION: Centrilobular emphysema. There is again noted scoliotic curve convex to the left.
--- NOTE | 2019-05-31 02:49 | ECG_ITS ---
Measurements Intervals [place] Rate: 92 P: 90 DE: 141 QRS: 86 QRSD: 85 T: 36 QT: 367 QTc: 455 SINUS RHYTHM LOW QRS VOLTAGE IN PRECORDIAL LEADS [QRS DEFLECTION < 1.0 mV IN CHEST LEADS] Compared to ECG 03/30/2019 16:36:12 No significant changes Electronically Signed On 05-31-2019 16:56:18 [employer] by Ike Alvarez M.D. [email or web address]
[2019-05-31] MEDS: sodium chloride 0.9% 1,000 ML 999 ML IV (03:10)
[2019-05-31 03:38] LABS: Alanine Aminotransferase 36 U/L (0-33); Albumin Level 1.8 g/dL (3.5-5.2); Alkaline Phosphatase 163 IU/L (35-105); Anion Gap 25.3 (5-19); Aspartate Amino Transferase 45 U/L (0-32); Blood Urea Nitrogen 20 mg/dL (8-23); Calcium 9.5 mg/dL (8.5-10.5); Carbon Dioxide 20 mmol/L (22-29); Chloride 98 mmol/L (98-107); Globulin 5.6 g/dL (1.3-4.6); Glomerular Filtration Rate 55.5 mL/min (90-130); Glucose 265 mg/dL (65-115); Potassium 5.3 mmol/L (3.5-5.1); Sodium 138 mmol/L (136-145); Total Bilirubin 0.2 mg/dL (0.15-1.2); Total Protein 7.4 g/dL (6.6-8.7)
[2019-05-31 03:44] LABS: Basophils # 0.1 10^3/uL (0.0-0.1); Basophils % 0.3 %; Hemoglobin 6.6 g/dL (11.5-15.3); Lymphocytes # 2.9 10^3/uL (0.8-4.8); Lymphocytes % 9.2 %; Mean Corpuscular HGB Conc 28.7 g/dL (30.0-36.0); Mean Corpuscular Hemoglobin 26.3 pg (28.0-34.0); Mean Corpuscular Volume 91.6 fL (81-99); Mean Platelet Volume 10.4 fL (7.4-10.4); Monocytes # 1.3 10^3/uL (0.2-0.9); Neutrophils # 26.1 10^3/uL (1.8-7.7); Neutrophils % 84.2 %; Nucleated Red Blood Cells % 0 %; Platelet Count 1354 10^3/cmm (130-400); Red Blood Count 2.51 10^6/uL (4.1-5.3); Red Cell Distribution Width 17.4 % (12.1-15.1)
[2019-05-31 03:47] LABS: White Blood Count 31.1 10^3/uL (4.0-10.0)
[2019-05-31 03:51] LABS: INR 1.52 (0.8-1.2)
--- NOTE | 2019-05-31 04:00 | PM.HP ---
Providers/Chief Complaint Primary Care Provider: Tommie Feliz Jr, MD Chief Complaint: SHOCK History of Present Illness Josefina Lara is a 68 year old female who has a very complex past medical history, she is bedbound secondary to paraplegia due to stroke and MS, chronic indwelling catheter, recently had surgical debridement yesterday for sacral ulcer came in after experiencing profuse bleeding from surgical wound. long term stated that she almost lost 1.5 L to 2 L, dressing were profusely soaked with blood. Her complexion was pallor and she was very lethargic. Diagnostics in ER showed hemoglobin of 6.6, wound examination showed that coccygeal ulcer dressing was profusely soaked with blood there were some clots retracted however no active bleeding was found. Initial systolic blood pressure was 60-70 which responded well to fluid resuscitation. She is not sure about her last dose of Eliquis however endorses to taking medications around evening time. When I examined the patient systolic blood pressure was 115, she was not tachycardic, she was awake and alert, she told me about place time and person, date of , she told me about her debridement and events at the [facility]. Dr. Alvarez has been consulted and notified by ER physician, blood transfusion at the bedside, Nurse was at the bedside who witnessed her goals of care wishes that she wants to stay DNR/DNI however records from [facility] are stating full code Review of Systems Const: Reports: body aches, fatigue, malaise and diaphoresis Eyes: Denies: change in vision ENMT: Denies: throat pain Card: Denies: chest pain Resp: Denies: shortness of breath GI: Denies: abdominal pain, nausea or vomiting : Reports: painful urination; Denies: blood in urine Musc: Reports: limited range of motion, muscle weakness, decrease in muscle mass and deformity Skin/Breast: Reports: surgical incision, nail changes and other (Coccygeal ulcer soaked with blood, left buttocks ulcer not actively draining blood) Neuro: Reports: weakness in extremities and other (She is bedbound, paraplegic, she could only move her right arm); Denies: headache Psych: Denies: anxiety Endo: Denies: excessive urination Rafal/Lymph: Denies: easy bruising All/Imm: Denies: hives Medications/Allergies Allergies Allergy/AdvReac Type Severity Reaction Status Date / Time acetaminophen [From Tylenol] Allergy Unknown Unknown Verified 05/29/19 14:20 codeine Allergy Unknown Unknown Verified 05/29/19 14:20 hydrocodone Allergy Unknown Unknown Verified 05/29/19 14:20 latex Allergy Unknown Unknown Verified 05/29/19 14:20 morphine Allergy Unknown Unknown Verified 05/29/19 14:20 zolpidem [From Ambien] Allergy Unknown Unknown Verified 05/29/19 14:20 PFSH Acute PFSH: Social History Smoking and tobacco status: unknown if ever smoked Alcohol intake: never Adopted: No Caregiver/support person: No Housing: Assisted Living Facility History of recent travel: No Current gender identity: Female Vitals/I&O/Wt Last Vital Signs Pulse 88 05/31/19 03:57 Resp 16 05/31/19 03:57 BP 98/47 05/31/19 03:57 Pulse Ox 98 05/31/19 03:57 Weight last 48 hrs Weight 113.398 kg Physical Exam Narrative: EXAM NARRATIVE: Morbidly obese female She is awake and alert oriented x3 Paraplegic She raised her right hand in the air for 5 seconds not able to do so with left arm Ibrahim catheter draining cloudy urine with sediments Systolic blood pressure 115 EOMI, PERRLA Pallor complexion S1, S2 Abdomen with obesity, distended, bloated, nontender Lungs are clear to auscultation Coccygeal ulcer with clots without active drainage or blood, bloodsoaked dressing was changed, coccygeal ulcer was repacked with dressing in ER, almost 7 x 7 intervention Data : 05/31/19 02:41 05/31/19 02:41 A&P Assessment and plan (1) Hemorrhagic shock: Status: Acute Code(s): R57.8 - Other shock (2) Anemia: Status: Acute Code(s): D64.9 - Anemia, unspecified Additional A&P Information Acute on chronic normocytic blood loss anemia from surgical wound Debridement was done yesterday Dr. Alvarez consulted and notified by ER physician Patient getting transfusion at the moment Bleeding has stopped Most likely last dose of Eliquis yesterday evening, currently she is awake alert systolic blood pressure is getting better, will hold off on using PCC or reversal agent Admit to ICU Monitor H&H Neurogenic bladder: Chronic indwelling Ibrahim catheter, she has a history of nephrolithiasis status post lithotripsy left ureteral stent placement Blood-tinged urine She has history of partial staghorn calculi Denies active dysuria She has known history of UTI with ESBL Left hemiparesis status post CVA, she has a history of MS, She is bedbound and dependent on nursing care Needs extensive wound care In February she has finished IV antibiotic course for sacral ulcer wound, without proper source control she might benefit from long-term p.o. antibiotic course History of DVT on chronic anticoagulation with Eliquis Anticoagulation on hold DNR/DNI: Currently readdress goals of care in the morning, patient is telling me that she would like to stay DNR and DNI but paperwork is stating full code from [facility] DVT prophylaxis: Contraindicated because of active bleed Attestations Medical Necessity Statement*: Needs ICU for hemorrhagic shock from surgical wound, anticipating stay to cross more than 2 midnights Time Spent in Patient Care: 45 Critical Care Time: Critical Care Time (min): 30 Coding Level of Care Code Acute Weed Control Inspector for Ashish Brennan Diagnoses Hemorrhagic shock R57.8 Anemia D64.9
[2019-05-31] MEDS: sodium chloride 0.9% 500 ML IV (04:59)
[2019-05-31 08:46] LABS: Lactic Acid level (Lactate) 4.1 mmol/L (0.5-2.2)
--- NOTE | 2019-05-31 09:15 | PC.PHAR ---
VANCOMYCIN 1000MG Q12 H PER PHARMACY PROTOCOL Pharmacokinetic dosing service Date: Time: Objective: Patient: Floor: Age: 68 yo Serum creatinine: 1 mg/dL Height: 65.0 Inches Weight (kg): 113 Assessment: IBW (kg): 57.00 Dosing wt(kg): 79.4 Estimated Creatinine clearance (ml/min): 69.4 CRCL method: Cockcroft and Gault using adjusted body weight Drug selected: Vancomycin Loading dose (mg): Vd (liters): 55.6 (factor used: 0.7 L/kg) Edi (hr-1): 0.062 Half life (hrs): 11.18 CLvanco= 3.447 L/hr Recommended dose: 1000 mg Interval: 12 hrs Infusion time (hrs): 1 Predicted peak (mcg/mL): 33.2 Predicted trough (mcg/mL): 16.79 Adjusted body weight was selected for vancomycin dosing. To switch back, select the total body weight option above. Recommendations: Give Vancomycin 1000 mg q 12 hrs with an expected Cpeak of 33.2 mcg/ml and an expected Ctrough of 16.79 mcg/ml Thank you for the consult, will continue to follow.
[2019-05-31] MEDS: tamsulosin 0.4 mg Capsule PO ×2 (11:13→18:19)
[2019-05-31] MEDS: duloxetine 30 mg Capsule PO (11:13)
[2019-05-31] MEDS: levothyroxine 50 mcg Tablet PO (11:13)
[2019-05-31] MEDS: allopurinol 100 mg Tablet 200 MG PO (11:13)
[2019-05-31] MEDS: artificial tears Op Soln 15 mL Btl 1 DROP EYE-BOTH ×2 (11:15→22:13)
[2019-05-31] MEDS: lurasidone 20 mg Tablet 40 MG PO (11:16)
[2019-05-31] MEDS: vancomycin 1,000 MG in sodium chloride 0.9% 250 ML 250 MG IV ×2 (11:33→22:14)
[2019-05-31] MEDS: sodium chloride 0.9% 100 ML 30 ML (11:34)
[2019-05-31 13:22] LABS: Hematocrit 25.4 % (37.0-47.0); Hemoglobin 7.9 g/dL (11.5-15.3)
[2019-05-31 13:29] LABS: Lactate (Lactic Acid level) 2.6 mmol/L (0.5-2.2)
--- NOTE | 2019-05-31 14:58 | PM.PN ---
Subjective Subjective: Interval history: overnight labs and H& p reviwed. No new complaints this morning. WBC 31, lactate 4.0 Medications: Reviewed: Yes Vitals/I&O/Wt Last Vital Signs Temp 98.2 F 05/31/19 08:30 Pulse 84 05/31/19 08:45 Resp 16 05/31/19 08:45 BP 114/48 05/31/19 08:45 Pulse Ox 97 05/31/19 08:45 05/30/19 05/31/19 05/31/19 22:59 06:59 14:59 Intake Total 1350 / 1350 120 / 120 Balance 1350 / 1350 120 / 120 Weight last 48 hrs Weight 113.398 kg Physical Exam Narrative: EXAM NARRATIVE: GEN: Awake, alert and oriented, no acute distress CVS: S1S2 N RS: CTA B/L except crackles over RUL Abd: Soft, nt/nd , bs+ Data : 05/31/19 16:06 05/31/19 02:41 A&P Assessment and plan (1) Hemorrhagic shock: Status: Acute Code(s): R57.8 - Other shock (2) Anemia: Status: Acute Code(s): D64.9 - Anemia, unspecified Additional A&P Information Acute on chronic normocytic blood loss anemia from surgical wound Debridement was done yesterday Patient getting transfusion at the moment Bleeding has stopped Monitor H&H Neurogenic bladder: Chronic indwelling Ibrahim catheter, she has a history of nephrolithiasis status post lithotripsy left ureteral stent placement She has known history of UTI with ESBL cannot r/o septic shock. start primaxin and vancomycin blood cx sent Left hemiparesis status post CVA, she has a history of MS, She is bedbound and dependent on nursing care Needs extensive wound care History of DVT on chronic anticoagulation with Eliquis Anticoagulation on hold DNR/DNI: DVT prophylaxis: Contraindicated because of active bleed Attestations Medical Necessity Statement*: bleeding, h&H monitoring, need for iv abx Coding Level of Care Code Acute Manufacturing Engineer Supervisor for Ashish Brennan Diagnoses Hemorrhagic shock R57.8 Anemia D64.9
[2019-05-31 16:56] LABS: Hematocrit 21.9 % (37.0-47.0)
[2019-05-31] MEDS: oxyCODONE-APAP 5-325 mg Tablet 1 TAB PO (22:27)
[2019-06-01] VITALS (31 sets, daily range): BP systolic 90–129; BP diastolic 42–74; PULSE 73–84; RESP 13–24; TEMP 36.5–37.3; O2SAT 91–100
[2019-06-01 05:07] LABS: Basophils % 0.3 %; Eosinophils # 0.2 10^3/uL (0.0-0.8); Eosinophils % 1.2 %; Hematocrit 23.7 % (37.0-47.0); Hemoglobin 7.5 g/dL (11.5-15.3); Lymphocytes # 2.7 10^3/uL (0.8-4.8); Lymphocytes % 17.3 %; Mean Corpuscular HGB Conc 31.6 g/dL (30.0-36.0); Mean Corpuscular Hemoglobin 28.7 pg (28.0-34.0); Mean Corpuscular Volume 90.8 fL (81-99); Mean Platelet Volume 9.2 fL (7.4-10.4); Monocytes # 0.9 10^3/uL (0.2-0.9); Monocytes % 5.9 %; Neutrophils # 11.5 10^3/uL (1.8-7.7); Neutrophils % 74.1 %; Nucleated Red Blood Cells % 0 %; Platelet Count 621 10^3/cmm (130-400); Red Blood Count 2.61 10^6/uL (4.1-5.3); Red Cell Distribution Width 15.6 % (12.1-15.1); White Blood Count 15.5 10^3/uL (4.0-10.0)
[2019-06-01 05:29] LABS: Alanine Aminotransferase 23 U/L (0-33); Albumin Level 1.5 g/dL (3.5-5.2); Alkaline Phosphatase 119 IU/L (35-105); Anion Gap 14.1 (5-19); Blood Urea Nitrogen 21 mg/dL (8-23); Calcium 8.2 mg/dL (8.5-10.5); Carbon Dioxide 25 mmol/L (22-29); Chloride 100 mmol/L (98-107); Glucose 91 mg/dL (65-115); Potassium 4.1 mmol/L (3.5-5.1); Sodium 135 mmol/L (136-145); Total Bilirubin 0.2 mg/dL (0.15-1.2); Total Protein 5.5 g/dL (6.6-8.7)
[2019-06-01] MEDS: oxyCODONE-APAP 5-325 mg Tablet 1 TAB PO ×2 (06:19→20:43)
[2019-06-01 06:39] LABS: Aspartate Amino Transferase 25 U/L (0-32)
[2019-06-01] MEDS: fentaNYL 50 mcg/mL INJ 2mL IVP (08:21)
[2019-06-01] MEDS: tamsulosin 0.4 mg Capsule PO ×2 (08:50→17:42)
[2019-06-01] MEDS: duloxetine 30 mg Capsule PO (08:50)
[2019-06-01] MEDS: allopurinol 100 mg Tablet 200 MG PO (08:50)
[2019-06-01] MEDS: lurasidone 20 mg Tablet 40 MG PO (08:50)
[2019-06-01] MEDS: vancomycin 1,000 MG in sodium chloride 0.9% 250 ML 250 MG IV ×2 (08:53→20:44)
[2019-06-01] MEDS: artificial tears Op Soln 15 mL Btl 1 DROP EYE-BOTH ×4 (09:45→20:38)
[2019-06-01] MEDS: levothyroxine 50 mcg Tablet PO (11:55)
[2019-06-01] MEDS: sodium chloride 0.9% 100 ML (11:55)
--- NOTE | 2019-06-01 14:31 | PM.PN ---
Subjective Subjective: Interval history: no acute overnight events. feels stronger, improved. Evaluated by surgery, noted to have clot over wound site, no active bleeding. Hb stable ,hemodynamically stable. WBC improving Medications: Reviewed: Yes Vitals/I&O/Wt Last Vital Signs Temp 98.2 F 06/01/19 12:22 Pulse 77 06/01/19 12:22 Resp 16 06/01/19 12:22 BP 113/59 06/01/19 12:22 Pulse Ox 100 06/01/19 12:22 05/31/19 06/01/19 06/01/19 22:59 06:59 14:59 Intake Total 630 / 1810 700 / 2510 1550 / 1550 Output Total 650 / 650 350 / 1000 Balance -20 / 1160 350 / 1510 1550 / 1550 Weight last 48 hrs Weight 113.398 kg Physical Exam Narrative: EXAM NARRATIVE: GEN: Awake, alert and oriented, no acute distress CVS: S1S2 N RS: CTA B/L anteriorly Abd: Soft, nt/nd , bs+ COORDINATOR OF GENETIC SERVICES: deficits at baseline with paraplegia Data : 06/02/19 04:29 06/02/19 04:29 Micro: Microbiology 05/31/19 20:20 C.difficile Toxin B Gene (PCR) - Final Stool A&P Assessment and plan (1) Hemorrhagic shock: Status: Acute Code(s): R57.8 - Other shock (2) Anemia: Status: Acute Code(s): D64.9 - Anemia, unspecified Additional A&P Information Acute on chronic normocytic blood loss anemia from surgical wound Debridement was done yesterday Patient getting transfusion at the moment Bleeding has stopped Monitor H&H Neurogenic bladder: Chronic indwelling Ibrahim catheter, she has a history of nephrolithiasis status post lithotripsy left ureteral stent placement She has known history of UTI with ESBL cannot r/o septic shock. start primaxin and vancomycin blood cx sent Left hemiparesis status post CVA, she has a history of MS, She is bedbound and dependent on nursing care Needs extensive wound care History of DVT on chronic anticoagulation with Eliquis Anticoagulation on hold DNR/DNI: DVT prophylaxis: Contraindicated because of recent bleed Attestations Medical Necessity Statement*: Monitoring from blood loss anemia, awaiting susceptibilities of organisms on urine culture. Coding Level of Care Code Acute Tab Machine Operator for Chg Fwd Diagnoses Hemorrhagic shock R57.8 Anemia D64.9
--- NOTE | 2019-06-01 15:08 | P.CONIM_ITS ---
Providers/Reason For Consult Consulting Physican/Specialty*: wound debridement Reason for Consult*: Sacral decubitus ulcer Attending Physician: Kerline Malloy MD Primary Care Provider: Tommie Feliz Jr, MD History of Present Illness History of Present Illness Josefina Lara is a 68 year old female who had undergone debridement of her left hip wound and sacral wound on 05/30/2019. Patient presented to the ER later that night after she was noted to have significant bleeding in the retirement from these debrided wounds. She was slightly hypotensive and her hemoglobin is down to 6.1. She was therefore admitted to the ICU and transfused blood. Review of Systems General: Reports: ROS unobtainable due to mental status Meds/Allergies Home Medications and Allergies Home Medications Medication Instructions Recorded Confirmed Type Culturelle 1 cap PO DAILY 03/30/19 06/01/19 History Dakin's Solution See Rx Instructions .ROUTE .COMPLEX 03/30/19 06/01/19 History Eliquis 2.5 mg PO BID 03/30/19 05/31/19 History Eucerin 1 applic TOPICAL BID PRN 03/30/19 06/01/19 History Latuda 40 mg PO DAILY 03/30/19 05/31/19 History Prostat Liq 15 ml PO TID 03/30/19 05/31/19 History albuterol sulfate 2.5 mg INHALATION QID PRN 03/30/19 05/31/19 History allopurinol 100 mg PO DAILY 03/30/19 05/31/19 History artificial tears(hypromellose) 1 drp OPHTHALMIC (EYE) QID 03/30/19 06/01/19 History ascorbic acid (vitamin C) [Vitamin 1,000 mg PO BID 03/30/19 05/31/19 History C] baclofen 10 mg PO BID 03/30/19 05/31/19 History bisacodyl [Dulcolax (bisacodyl)] 10 mg OK DAILY PRN 03/30/19 05/31/19 History docusate sodium [Colace] 100 mg PO BID 03/30/19 06/01/19 History duloxetine [Cymbalta] 60 mg PO DAILY 03/30/19 05/31/19 History furosemide [Lasix] 20 mg PO DAILY 03/30/19 06/01/19 History levothyroxine [Synthroid] 50 mcg PO DAILY 03/30/19 05/31/19 History magnesium hydroxide [Milk of 30 ml PO DAILY PRN 03/30/19 05/31/19 History Magnesia] nitroglycerin [Nitromist] 1 spray TRANSLINGUAL PRN 03/30/19 06/01/19 History ondansetron HCl [Zofran] 4 mg PO Q4H PRN 03/30/19 05/31/19 History pantoprazole [Protonix] 40 mg PO DAILY 03/30/19 05/31/19 History pediatric multivitamin [Gummi Bear 1 tab PO DAILY 03/30/19 06/01/19 History Multivitamin] simvastatin 20 mg PO QPM 03/30/19 05/31/19 History sodium chloride 0.9 % (flush) See Rx Instructions .ROUTE .COMPLEX 03/30/19 06/01/19 History [Normal Saline Flush] sodium chloride [Saline Mist] 1 spray INTRANASAL QID 03/30/19 06/01/19 History tamsulosin [Flomax] 0.4 mg PO BID 03/30/19 06/01/19 History lactulose 20 g PO BID 05/30/19 06/01/19 History polyethylene glycol 3350 [Miralax] 17 g PO DAILY 05/30/19 06/01/19 History aspirin 81 mg PO DAILY 05/31/19 05/31/19 History duloxetine [Cymbalta] 30 mg PO DAILY 05/31/19 05/31/19 History methenamine hippurate 1 g PO BID 05/31/19 05/31/19 History mirtazapine [Remeron] 7.5 mg PO DAILY 05/31/19 05/31/19 History Allergies Allergy/AdvReac Type Severity Reaction Status Date / Time acetaminophen [From Tylenol] Allergy Unknown Unknown Verified 05/29/19 14:20 codeine Allergy Unknown Unknown Verified 05/29/19 14:20 hydrocodone Allergy Unknown Unknown Verified 05/29/19 14:20 latex Allergy Unknown Unknown Verified 05/29/19 14:20 morphine Allergy Unknown Unknown Verified 05/29/19 14:20 zolpidem [From Ambien] Allergy Unknown Unknown Verified 05/29/19 14:20 Current Medications Current Medications Generic Name Dose Route Start Last Admin Trade Name Freq PRN Reason Stop Dose Admin Allopurinol 200 mg 05/31/19 09:00 06/01/19 08:50 Zyloprim PO 200 mg DAILY MARK Administration Artificial Tears 1 drop 05/31/19 09:00 06/01/19 09:45 Isopto Tears EYE-BOTH 1 drop QID MARK Administration Imipenem/Cilastatin Sodium 500 100 mls @ 200 mls/hr 05/31/19 09:15 06/01/19 13:17 mg/ Sodium Chloride IV 200 mls/hr Q6H MARK Administration Protocol Vancomycin HCl 1,000 mg/ 250 mls @ 250 mls/hr 05/31/19 09:15 06/01/19 09:53 Sodium Chloride IV Infused Q12H MARK Infusion Protocol Levothyroxine Sodium 50 mcg 05/31/19 09:00 06/01/19 11:55 Synthroid PO 50 mcg DAILY MARK Administration Lurasidone HCl 40 mg 05/31/19 09:00 06/01/19 08:50 Latuda PO 40 mg DAILY MARK Administration Oxycodone/Acetaminophen 1 tab 05/31/19 06:18 06/01/19 06:19 Percocet 5-325 Mg PO 1 tab Q6H PRN Administration pain Sodium Hypochlorite 1 applic 06/01/19 09:00 06/01/19 08:51 Dakin's Half Strength TOPICAL Not Given BID MARK Tamsulosin HCl 0.4 mg 05/31/19 09:00 06/01/19 08:50 Flomax PO 0.4 mg BID MARK Administration PFSH Acute PFSH: Medical History CVA (cerebral vascular accident) Dementia Depression DVT (deep venous thrombosis) History of ESBL E. coli infection Morbid obesity Multiple sclerosis Nephrolithiasis Non-insulin dependent type 2 diabetes mellitus Oxygen dependent Paroxysmal A-fib Ureteral stenosis, left Surgical History S/P debridement Social History Smoking and tobacco status: unknown if ever smoked Alcohol intake: never Adopted: No Caregiver/support person: No Housing: Assisted Living Facility History of recent travel: No Current gender identity: Female Vitals/I&O/Wt Last Vital Signs Temp 99.1 F 06/01/19 13:22 Pulse 75 06/01/19 13:22 Resp 18 06/01/19 13:22 BP 101/43 06/01/19 13:22 Pulse Ox 100 06/01/19 13:22 06/01/19 06/01/19 06/01/19 06:59 14:59 22:59 Intake Total 700 / 2510 1550 / 1550 Output Total 350 / 1000 Balance 350 / 1510 1550 / 1550 Weight last 48 hrs Weight 250 lb Physical Exam Narrative: EXAM NARRATIVE: HEENT: Normocephalic Eye: Sclera /conjunctiva normal Respiratory and chest: Bilateral clear breath sounds on auscultation Cardiovascular: Normal S1 and S2 heart sounds Abdomen: Soft to palpation Neurological: Alert, oriented Skin: Intact, 7 x 7 x 3 cm sacral decubitus ulcer, good granulation tissue, no evidence of active bleeding, 7 x 5 x 4 cm left hip wound, large clot in place, no evidence of active bleeding, no surrounding cellulitis Data Micro: Micro: Microbiology 05/31/19 20:20 C.difficile Toxin B Gene (PCR) - [place] Stool Coding Level of Care Code Acute 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
--- NOTE | 2019-06-01 15:30 | PC.NURSE ---
COLINDRES CATHETER CHANGED 06/01/19. 20FR/30ML COLINDRES CATHETER PLACED WITHOUT DIFFICULTY, 50ML CLOUDY URINE. PT DID HAVE A CREAMY, WHITE DISCHARGE FROM VAGINAL AREA.
--- NOTE | 2019-06-01 16:05 | PC.NURSE ---
TRANSFER TO ROOM 270 BY BED. TOLERATED WELL. REPORT GIVEN TO ELLIOTT MCLEOD, CHECKED DRESSINGS TO SACRUM/RIGHT CHEEK C/D/I. SCD'S ON WORKING. PERSONAL BELONGINGS SENT UP WITH PT.
[2019-06-01 20:47] LABS: Vancomycin Trough 22.8 ug/mL (10-15)
[2019-06-01] MEDS: lanolin oint 7 gm 1 APPLIC TOPICAL (21:57)
--- NOTE | 2019-06-01 22:30 | PC.PHAR ---
The Vancomycin trough level is 22.8. Vancomycin is held and reduced to 1gm IVPB every 24 hours beginning in 24 hours. Another trough level has been ordered to be obtained before the fourth dose at this level.
[2019-06-02] VITALS (8 sets, daily range): BP systolic 115–138; BP diastolic 68–76; PULSE 68–88; RESP 17–22; TEMP 36.6–36.9; O2SAT 95–100
[2019-06-02 04:38] LABS: Basophils # 0.1 10^3/uL (0.0-0.1); Basophils % 0.3 %; Eosinophils # 0.1 10^3/uL (0.0-0.8); Eosinophils % 0.8 %; Hemoglobin 8.7 g/dL (11.5-15.3); Lymphocytes # 1.5 10^3/uL (0.8-4.8); Lymphocytes % 8.9 %; Mean Corpuscular HGB Conc 31.1 g/dL (30.0-36.0); Mean Corpuscular Hemoglobin 28.6 pg (28.0-34.0); Mean Corpuscular Volume 92.1 fL (81-99); Mean Platelet Volume 8.6 fL (7.4-10.4); Monocytes # 0.9 10^3/uL (0.2-0.9); Monocytes % 5.5 %; Neutrophils # 14.1 10^3/uL (1.8-7.7); Neutrophils % 83.6 %; Nucleated Red Blood Cells % 0 %; Platelet Count 615 10^3/cmm (130-400); Red Blood Count 3.04 10^6/uL (4.1-5.3); Red Cell Distribution Width 15.5 % (12.1-15.1); White Blood Count 16.9 10^3/uL (4.0-10.0)
[2019-06-02 04:53] LABS: Alanine Aminotransferase 19 U/L (0-33); Albumin Level 1.4 g/dL (3.5-5.2); Alkaline Phosphatase 119 IU/L (35-105); Anion Gap 13.7 (5-19); Aspartate Amino Transferase 17 U/L (0-32); Blood Urea Nitrogen 15 mg/dL (8-23); Carbon Dioxide 23 mmol/L (22-29); Chloride 98 mmol/L (98-107); Globulin 4.3 g/dL (1.3-4.6); Glomerular Filtration Rate 123.4 mL/min (90-130); Glucose 97 mg/dL (65-115); Potassium 3.7 mmol/L (3.5-5.1); Sodium 131 mmol/L (136-145); Total Bilirubin 0.2 mg/dL (0.15-1.2); Total Protein 5.7 g/dL (6.6-8.7)
[2019-06-02] MEDS: oxyCODONE-APAP 5-325 mg Tablet 1 TAB PO ×2 (06:06→16:57)
[2019-06-02] MEDS: lurasidone 20 mg Tablet 40 MG PO (09:05)
[2019-06-02] MEDS: allopurinol 100 mg Tablet 200 MG PO (09:05)
[2019-06-02] MEDS: tamsulosin 0.4 mg Capsule PO ×2 (09:05→18:19)
[2019-06-02] MEDS: levothyroxine 50 mcg Tablet PO (09:06)
[2019-06-02] MEDS: duloxetine 30 mg Capsule PO (09:06)
[2019-06-02] MEDS: artificial tears Op Soln 15 mL Btl 1 DROP EYE-BOTH ×3 (11:54→21:14)
--- NOTE | 2019-06-02 19:17 | PM.PN ---
Subjective Subjective: Interval history: No new complaints today. Feels well overall. No further bleeding from the wound site. Wound continues to be packed. Hemodynamically stable, no fever. Leukocytosis trending down to 16. 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: deficits at baseline with paraplegia Urinary Catheter Management^: Ibrahim: Cath Placed During This Visit: yes Reason for Continuing Indwelling Catheter: Chronic Indwelling Urinary Catheter on Admission Urinary Catheter Date of Insertion: 06/01/19 Urinary Catheter Time of Insertion: 15:30 Data : 06/03/19 09:40 06/03/19 09:40 A&P Assessment and plan (1) Hemorrhagic shock: Status: Acute Code(s): R57.8 - Other shock (2) Anemia: Status: Acute Code(s): D64.9 - Anemia, unspecified Additional A&P Information Acute on chronic normocytic blood loss anemia from surgical wound Debridement was done yesterday Patient getting transfusion at the moment Bleeding has stopped Monitor H&H Neurogenic bladder: Chronic indwelling Ibrahim catheter, she has a history of nephrolithiasis status post lithotripsy left ureteral stent placement She has known history of UTI with ESBL cannot r/o septic shock. continue primaxin and vancomycin blood cx sent reportedly upon admission however unable to find any results in system. Left hemiparesis status post CVA, she has a history of MS, She is bedbound and dependent on nursing care Needs extensive wound care History of DVT on chronic anticoagulation with Eliquis, now discontinued Anticoagulation on hold DNR/DNI: DVT prophylaxis: Contraindicated because of recent bleed Attestations Medical Necessity Statement*: clinically improving, close monitoring og HB. Likely discharge tomorrow Coding Level of Care Code Acute Status Controller for [facility] Fwd Diagnoses Hemorrhagic shock R57.8 Anemia D64.9
[2019-06-02] MEDS: vancomycin 1,000 MG in sodium chloride 0.9% 250 ML 250 MG IV (21:14)
[2019-06-03] VITALS (7 sets, daily range): BP systolic 115–133; BP diastolic 72–85; PULSE 79–89; RESP 16–18; TEMP 36.7–37; O2SAT 91–99
--- NOTE | 2019-06-03 03:04 | PC.NURSE ---
It is daylight savings time and we went forward an hour.
[2019-06-03] MEDS: allopurinol 100 mg Tablet 200 MG PO (09:11)
[2019-06-03] MEDS: tamsulosin 0.4 mg Capsule PO (09:11)
[2019-06-03] MEDS: lurasidone 20 mg Tablet 40 MG PO (09:11)
[2019-06-03] MEDS: duloxetine 30 mg Capsule PO (09:11)
[2019-06-03] MEDS: levothyroxine 50 mcg Tablet PO (09:12)
[2019-06-03] MEDS: sodium hypochlorite 0.25% Btl 473 mL 1 APPLIC TOPICAL (09:15)
[2019-06-03] MEDS: artificial tears Op Soln 15 mL Btl 1 DROP EYE-BOTH ×2 (09:18→12:40)
[2019-06-03 10:22] LABS: Basophils % 0.3 %; Eosinophils # 0.2 10^3/uL (0.0-0.8); Eosinophils % 1.8 %; Hematocrit 28.5 % (37.0-47.0); Hemoglobin 8.8 g/dL (11.5-15.3); Lymphocytes # 1.5 10^3/uL (0.8-4.8); Lymphocytes % 11.8 %; Mean Corpuscular HGB Conc 30.9 g/dL (30.0-36.0); Mean Corpuscular Hemoglobin 28.9 pg (28.0-34.0); Mean Corpuscular Volume 93.8 fL (81-99); Monocytes # 0.8 10^3/uL (0.2-0.9); Monocytes % 6.3 %; Neutrophils # 9.8 10^3/uL (1.8-7.7); Neutrophils % 78.5 %; Nucleated Red Blood Cells % 0 %; Platelet Count 696 10^3/cmm (130-400); Red Blood Count 3.04 10^6/uL (4.1-5.3); Red Cell Distribution Width 15.9 % (12.1-15.1); White Blood Count 12.5 10^3/uL (4.0-10.0)
--- NOTE | 2019-06-03 10:27 | PC.SOCIAL ---
IMM Update Pg 2 of IMM given and explained to patient who verbalized understanding. Copy provided to patient and copy in chart updated.
[2019-06-03 10:30] LABS: Alanine Aminotransferase 14 U/L (0-33); Albumin Level 1.5 g/dL (3.5-5.2); Alkaline Phosphatase 124 IU/L (35-105); Anion Gap 14.5 (5-19); Aspartate Amino Transferase 16 U/L (0-32); Blood Urea Nitrogen 13 mg/dL (8-23); Calcium 8.3 mg/dL (8.5-10.5); Carbon Dioxide 24 mmol/L (22-29); Chloride 100 mmol/L (98-107); Globulin 4.2 g/dL (1.3-4.6); Glomerular Filtration Rate 159.7 mL/min (90-130); Glucose 124 mg/dL (65-115); Potassium 3.5 mmol/L (3.5-5.1); Sodium 135 mmol/L (136-145); Total Bilirubin 0.2 mg/dL (0.15-1.2); Total Protein 5.7 g/dL (6.6-8.7)
[2019-06-03] MEDS: oxyCODONE-APAP 5-325 mg Tablet 1 TAB PO (12:29)
--- NOTE | 2019-06-03 14:48 | P.DS_ITS ---
Discharge Providers Date of Admission: 05/31/19 04:16 Date of Discharge: June 03, 2019 Attending Provider at Admission: Jewels Nazario MD Attending Provider at Discharge: Kerline Malloy MD Primary Care Provider: Tommie Feliz Jr, MD Diagnoses at Discharge Discharge Diagnosis (1) Hemorrhagic shock: Status: Acute (2) Anemia: Status: Acute (3) Chronic osteomyelitis of sacrum: Status: Acute (4) Multiple sclerosis: Status: Acute Reason for Visit Reason for Visit: Reason For Visit: SHOCK Hospital Course Discharge Summary: Josefina Lara is a 68 year old female who has had multiple past admissions here for a very complex past medical history, she is bedbound secondary to paraplegia due to stroke and MS, chronic indwelling catheter, recently had surgical debridement one day [employer]PERVIS[employer] for sacral ulcer and chronic sacral osteomyelitis, then came in after experiencing profuse bleeding from surgical wound. [facility] stated that she almost lost 1.5 L to 2 L, dressing were profusely soaked with blood. Her complexion was pallor and she was very lethargic. Diagnostics in ER showed hemoglobin of 6.6, wound examination showed that coccygeal ulcer dressing was profusely soaked with blood there were some clots retracted however no active bleeding was found. Initial systolic blood pressure was 60-70 which responded well to fluid resuscitation. With IVF resuscitation and blood transfusion she improved significantly and at time of discharge her Hb is now improved to 8.8. She has previously also noted to be anemic late last year with HB 6. Due to acute blood loss and past h/o bleeding and anemia as well, decision was made to discontinue Eliquis after discussion with her. She is agreeable with this plan as at this time risks of continued anticoagulation outweigh the benefits. Upon arrival she also had a leukocytosis of 31. This primarily appeared to be related to hemoconcentration from acute blood loss however given her significant past history of multiple infections sepsis could not be completely excluded. She received a short course of IV antibiotics with Primaxin and vancomycin. This is been since discontinued on discharge is no focal source of infection has been found. Her wound appears to be at baseline. For her chronic sacral osteomyelitis, she is not a candidate for colostomy with extensive plastics closure due to high risk of flap necrosis and failure given that patient is bedbound. Please refer to discharge summary for previous admission for other recommendations regarding the same. At the time of discharge she remains chronically ill, however back to her usual baseline. He is being discharged to SNF in stable condition. 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 deficits at baseline Urinary Catheter Management^: Ibrahim: Cath Placed During This Visit: yes Reason for Continuing Indwelling Catheter: Chronic Indwelling Urinary Catheter on Admission Urinary Catheter Date of Insertion: 06/01/19 Urinary Catheter Time of Insertion: 15:30 Discharge Data Data Completed and Pending: Completed Studies During Hospitalization Category Date Time Status XR chest 1V boo ble [id number] Stat Exams 05/31/19 02:49 Completed Pending at discharge Category Date Time Status Leukocyte Reduced RBC Stat Lab 05/31/19 03:11 Results Retype for XM Sta t Lab 05/31/19 03:11 Results Type and Screen S tat Lab 05/31/19 03:11 Results Vancomycin Trough Timed Lab 06/05/19 20:00 Ordered Labs from last 24 hours 06/03/19 06/03/19 09:40 09:40 WBC 12.5 H RBC 3.04 L Hgb 8.8 L Hct 28.5 L MCV 93.8 MCH 28.9 MCHC 30.9 RDW 15.9 H Plt Count 696 H MPV 9.0 Neut % (Auto) 78.5 Lymph % (Auto) 11.8 Brule % (Auto) 6.3 Eos % (Auto) 1.8 Baso % (Auto) 0.3 Neut # (Auto) 9.8 H Lymph # (Auto) 1.5 Brule # (Auto) 0.8 Eos # (Auto) 0.2 Baso # (Auto) 0.0 Nucleated RBC % (a uto) 0 Nucleated RBCs # 0.0 Sodium 135 L Potassium 3.5 Chloride 100 Carbon Dioxide 24 Anion Gap 14.5 BUN 13 Creatinine 0.4 L GFR Calculation 159.7 H Glucose 124 H Calcium 8.3 L Total Bilirubin 0.2 AST 16 ALT 14 Alkaline Phosphata se 124 H Total Protein 5.7 L Albumin 1.5 L Globulin 4.2 Vitals: Last Vital Signs Temp 98.0 F 06/03/19 11:37 Pulse 84 06/03/19 11:37 Resp 16 06/03/19 12:29 BP 126/75 06/03/19 11:37 Pulse Ox 91 06/03/19 11:37 Discharge Plan Discharge Patient Disposition: Xfer SNF Condition: Stable Prescriptions: Continued ondansetron HCl [Zofran] 4 mg Tablet 4 mg PO Q4H PRN (Reason: Nausea) RF: 0 pediatric multivitamin [Gummi Bear Multivitamin] Tablet,Chewable 1 tab PO DAILY RF: 0 tamsulosin [Flomax] 0.4 mg Capsule 0.4 mg PO BID RF: 0 baclofen 10 mg Tablet 10 mg PO BID RF: 0 levothyroxine [Synthroid] 50 mcg Tablet 50 mcg PO DAILY RF: 0 bisacodyl [Dulcolax (bisacodyl)] 10 mg Suppository 10 mg MN DAILY PRN (Reason: Constipation) RF: 0 simvastatin 20 mg Tablet 20 mg PO QPM RF: 0 docusate sodium [Colace] 100 mg Capsule 100 mg PO BID RF: 0 furosemide [Lasix] 20 mg Tablet 20 mg PO DAILY RF: 0 artificial tears(hypromellose) 0.3 % Drops 1 drp OPHTHALMIC (EYE) QID RF: 0 Culturelle 10 billion cell Capsule 1 cap PO DAILY RF: 0 sodium chloride [Saline Mist] 0.65 % Aerosol,Dyess 1 spray INTRANASAL QID RF: 0 duloxetine [Cymbalta] 60 mg Capsule,Delayed Release(Dr/Ec) 60 mg PO DAILY RF: 0 ascorbic acid (vitamin C) [Vitamin C] 1,000 mg Tablet 1,000 mg PO BID RF: 0 albuterol sulfate 2.5 mg /3 mL (0.083 %) Solution For Nebulization 2.5 mg INHALATION QID PRN (Reason: Shortness Of Breath) RF: 0 nitroglycerin [Nitromist] 400 mcg/spray Aerosol,Dyess 1 spray translingual PRN RF: 0 allopurinol 100 mg Tablet 100 mg PO DAILY RF: 0 magnesium hydroxide [Milk of Magnesia] 400 mg/5 mL Suspension 30 ml PO DAILY PRN (Reason: Constipation) RF: 0 pantoprazole [Protonix] 40 mg Tablet,Delayed Release (Dr/Ec) 40 mg PO DAILY RF: 0 sodium chloride 0.9 % (flush) [Normal Saline Flush] Syringe See Rx Instructions .ROUTE .COMPLEX RF: 0 Dakin's Solution 0.125 % Solution See Rx Instructions .ROUTE .COMPLEX RF: 0 Eucerin Cream 1 applic TOPICAL BID PRN (Reason: Dry Skin) RF: 0 Latuda 40 mg Tablet 40 mg PO DAILY RF: 0 Prostat Liq 15 ml PO TID RF: 0 polyethylene glycol 3350 [Miralax] 17 gram Powder In Packet 17 g PO DAILY RF: 0 lactulose 20 gram/30 mL Solution 20 g PO BID RF: 0 oxycodone-acetaminophen [Percocet] 5-325 mg tablet 1 tab PO Q6H PRN (Reason: pain) Qty: 20 RF: 0 aspirin 81 mg Tablet,Delayed Release (Dr/Ec) 81 mg PO DAILY RF: 0 methenamine hippurate 1 gram Tablet 1 g PO BID RF: 0 Remeron 15 mg Tablet 7.5 mg PO DAILY RF: 0 duloxetine [Cymbalta] 30 mg Capsule,Delayed Release(Dr/Ec) 30 mg PO DAILY RF: 0 Discontinued Eliquis 2.5 mg Tablet 2.5 mg PO BID RF: 0 Hold Instructions: Resume on 06/02/19. 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
--- NOTE | 2019-06-03 17:43 | PC.NURSE ---
Discharge Summary Patient was given discharge instructions. report [facility]. patients ivs were discontinued. patient was alert and oriented. ambulance transport was called for transport. vital signs stable within patient normals.
== END 2019-06-03 17:00 | disposition skilled nursing facility (03) | DRG 919 ==
LOC: ER 04:06 → ICU 05:12 → MEDSURG 06-01 16:27
PROVIDERS: Admitting Provider Internal Medicine; Emergency Provider Emergency Medicine; Family Provider Family Medicine; PCP Family Medicine; Visit Provider Student in an Organized Health Care Education/Training Program
DX: M96.831 Postprocedural hemorrhage of a musculoskeletal structure following other procedure (principal); R57.8 Other shock; R65.21 Severe sepsis with septic shock; M86.8X8 Other osteomyelitis, other site; I69.352 Hemiplegia and hemiparesis following cerebral infarction affecting left dominant side; Z68.41 Body mass index [BMI] 40.0-44.9, adult; D62 Acute posthemorrhagic anemia; G35 Multiple sclerosis; L89.159 Pressure ulcer of sacral region, unspecified stage; I95.9 Hypotension, unspecified; E66.01 Morbid (severe) obesity due to excess calories; Z66 Do not resuscitate; Z74.01 Bed confinement status; Z79.82 Long term (current) use of aspirin; Z79.51 Long term (current) use of inhaled steroids; Z79.899 Other long term (current) drug therapy; Z79.890 Hormone replacement therapy
CPT/HCPCS: 12345; 36415; 36430; 51702; 71045; 80053; 80202; 83605; 85014; 85018; 85025; 85610; 86850; 86900; 86920; 87070; 87077; 87176; 87186; 87205; 87493; 93005; 96365; 96375; 99283; J0743; J3010; J3370; J7030; J7040; J7050; P9016

== ENCOUNTER 2019-06-11 08:04 | Outpatient (RCR) | payer MEDICARE, MEDICAID, SELFPAY | END 2019-06-26 23:59 | disposition home or self-care (01) | LOC: WOUND 08:04 | PROVIDERS: Family Provider Family Medicine; PCP Family Medicine; Visit Provider Nurse Practitioner Family | DX: I96 Gangrene, not elsewhere classified (principal); L89.154 Pressure ulcer of sacral region, stage 4; L89.324 Pressure ulcer of left buttock, stage 4; L89.222 Pressure ulcer of left hip, stage 2 | CPT/HCPCS: 11042; 11045 ==

== ENCOUNTER 2019-07-29 18:26 | Inpatient (IN) | payer MEDICARE, MEDICAID, SELFPAY ==
[2019-07-29] VITALS (26 sets, daily range): BP systolic 78–102; BP diastolic 39–56; PULSE 77–94; RESP 15–27; TEMP 37.5–37.8; O2SAT 93–100; BMI 35.2
--- NOTE | 2019-07-29 18:29 | XR_ITS ---
WS: [id number] XR chest 1V portable [id number] REASON FOR EXAM: fever FINDINGS: Comparisons were made to May 31, 2019 scoliotic curve is again seen convex to the right si de. Off the right hilum there is an early interstitial infiltrate not seen on previous exam. The heart is borderline enlarged. XR/XR chest 1V portable [id number] IMPRESSION: Patchy interstitial infiltrate in the right upper lung. Severe rotoscoliosis.
--- NOTE | 2019-07-29 18:30 | ECG_ITS ---
Measurements Intervals [place] Rate: 92 P: 84 LA: 137 QRS: 117 QRSD: 96 T: 112 QT: 339 QTc: 419 SINUS RHYTHM LOW QRS VOLTAGE IN PRECORDIAL LEADS [QRS DEFLECTION < 1.0 mV IN CHEST LEADS] POSSIBLE RIGHT VENTRICULAR CONDUCTION DELAY [RSR (QR) IN V1/V2] LATERAL MYOCARDIAL INFARCTION , OF INDETERMINATE AGE [40+ ms Q WAVE AND/OR ST/T AB ABNORMALITY IN I/aVL/V5/V6] Compared to ECG 05/31/2019 03:02:31 Myocardial infarct finding now present Electronically Signed On 07-30-2019 18:15:31 CDT by Jewels Pitts M.D. [id number]
--- NOTE | 2019-07-29 18:35 | W.ED.FEVER ---
HPI - Fever General: Chief Complaint: Altered Mental Status Stated Complaint: FEVER; AMS Time Seen by Provider: 07/29/19 18:27 Source: EMS Mode of arrival: EMS Limitations: altered mental status History of Present Illness: HPI Narrative: 68-year-old female here from local senior care who has a history of MS who is bedbound. She has had a history of sepsis due to U TI's along with sacral decubital ulcer. Patient senior care today was hypotensive and febrile. She had a temperature of 101 there. Patient is nonverbal and unable to give any history. Patient is ill-appearing and diaphoretic. MD elicited complaint: fever Review of Systems General: Reports: ROS unobtainable due to mental status PFSH ED PFSH: Medical History CVA (cerebral vascular accident) Dementia Depression DVT (deep venous thrombosis) History of ESBL E. coli infection Morbid obesity Multiple sclerosis Nephrolithiasis Non-insulin dependent type 2 diabetes mellitus Oxygen dependent Paroxysmal A-fib Ureteral stenosis, left Surgical History S/P debridement Social History Smoking and tobacco status: unknown if ever smoked Alcohol intake: never Adopted: No Caregiver/support person: No Housing: Assisted Living Facility History of recent travel: No Current gender identity: Female Physical Exam Const: COMMON NORMALS: alert GENERAL APPEARANCE: in distress, lethargic, ill appearing and frail appearing ORIENTATION/CONSCIOUSNESS: Yes lethargic; not oriented to person, not oriented to place and not oriented to time HENMT: COMMON NORMALS: normocephalic and head/scalp atraumatic HEAD & SCALP: normocephalic and atraumatic Eye: COMMON NORMALS: PERRL and EOMs intact bilaterally PUPIL: Yes PERRL Neck/C-Spine: COMMON NORMALS: full ROM and supple Chest: COMMONS NORMALS: inspection of chest normal and palpation of chest normal Resp: COMMON NORMALS: normal respiratory effort, no retractions, no use of accessory muscles and clear to auscultation bilaterally AUSCULTATION: clear to auscultation bilaterally Cardio: COMMON NORMALS: regular rate, regular rhythm and no murmurs RATE: regular rate RHYTHM: regular rhythm GI: COMMON NORMALS: normal to inspection, nondistended, normoactive bowel sounds, soft to palpation, non-tender and no masses PALPATION: Yes soft Extremity: COMMON NORMALS: normal to inspection and full ROM Neuro: SENSORIUM/ORIENTATION: Yes alert, No oriented to person, No oriented to place, No oriented to time and Yes lethargic Psych: COMMON NORMALS: negative for mental status grossly normal Skin: COMMON NORMALS: no rashes or lesions noted and no wounds GENERAL SKIN EXAM: no rashes or lesions noted OTHER: diaphoretic, very large decubitus ulcer to sacral region Course Vital Signs: Vital signs: Vital Signs Temperature 100.1 F H 07/29/19 19:34 Pulse Rate 85 07/29/19 19:43 Respiratory Rate 27 H 07/29/19 19:43 Blood Pressure 91/42 07/29/19 19:43 Pulse Oximetry 100 07/29/19 19:43 MDM - Fever MDM Narrative: Medical decision making narrative: Patient presents here with fever along with septic shock. Patient's blood pressure and heart rate is improving here. She does have recurrent UTIs. Patient's decubitus ulcer here is large but has no signs of acute infection at this time. Will start on Vanco and Zosyn spoke to hospitalist will admit. Her lactic level is normal. Lab Data: Labs: Lab Results 07/29/19 07/29/19 07/29/19 Range/Units 18:14 18:14 18:14 WBC 12.4 H (4.0-10.0) 10^3/ uL RBC 2.95 L (4.1-5.3) 10^6/u L Hgb 7.5 L (11.5-15.3) g/dL Hct 24.7 L (37.0-47.0) % MCV 83.7 (81-99) fL MCH 25.4 L (28.0-34.0) pg MCHC 30.4 (30.0-36.0) g/dL RDW 18.0 H (12.1-15.1) % Plt Count 436 H (130-400) 10^3/c mm MPV 9.4 (7.4-10.4) fL Neut % (Auto) 89.9 % Lymph % (Auto) 4.3 % [place] % (Auto) 5.0 % Eos % (Auto) 0.0 % Baso % (Auto) 0.2 % Neut # (Auto) 11.2 H (1.8-7.7) 10^3/u L Lymph # (Auto) 0.5 L (0.8-4.8) 10^3/u L [place] # (Auto) 0.6 (0.2-0.9) 10^3/u L Eos # (Auto) 0.0 (0.0-0.8) 10^3/u L Baso # (Auto) 0.0 (0.0-0.1) 10^3/u L Nucleated RBC % (a uto) 0 % Nucleated RBCs # 0.0 /100WBC PT 20.20 H (10.5-13.3) SECO NDS INR 1.66 H (0.8-1.2) Sodium 134 L (136-145) mmol/L Potassium 4.7 (3.5-5.1) mmol/L Chloride 96 L (98-107) mmol/L Carbon Dioxide 29 (22-29) mmol/L Anion Gap 13.7 (5-19) BUN 23 (8-23) mg/dL Creatinine 0.8 (0.5-0.9) mg/dL GFR Calculation 71.8 L (90-130) mL/min Glucose 161 H (65-115) mg/dL Calculated Osmolal ity 278 L (285-295) mOsm/k g Lactate (0.5-2.2) mmol/L Calcium 9.2 (8.5-10.5) mg/dL Total Bilirubin 0.4 (0.15-1.2) mg/dL AST 34 H (0-32) U/L ALT 38 H (0-33) U/L Alkaline Phosphata se 177 H (35-105) IU/L Total Protein 7.7 (6.6-8.7) g/dL Albumin 2.3 L (3.5-5.2) g/dL Globulin 5.4 H (1.3-4.6) g/dL Lipase 3 L (13-60) U/L Urine Color (Yellow) Urine Appearance (CLEAR) Urine pH (5-7) Ur Specific Gravit y (1.005-1.030) Urine Protein (Negative) Urine Glucose (UA) (Normal) Urine Ketones (Negative) Urine Blood (Negative) Urine Nitrate (Negative) Urine Bilirubin (NEGATIVE) Urine Urobilinogen (Negative) mg/dL Ur Leukocyte Bree ase (Negative) Urine RBC (0-2) /hpf Urine WBC (0-5) /hpf Ur Squamous Epith Cells (0-5) Calcium Oxalate Cr ystal /hpf Amorphous Sediment Urine Bacteria (NONE) 07/29/19 07/29/19 Range/Units 18:46 19:40 WBC (4.0-10.0) 10^3/ uL RBC (4.1-5.3) 10^6/u L Hgb (11.5-15.3) g/dL Hct (37.0-47.0) % MCV (81-99) fL MCH (28.0-34.0) pg MCHC (30.0-36.0) g/dL RDW (12.1-15.1) % Plt Count (130-400) 10^3/c mm MPV (7.4-10.4) fL Neut % (Auto) % Lymph % (Auto) % [place] % (Auto) % Eos % (Auto) % Baso % (Auto) % Neut # (Auto) (1.8-7.7) 10^3/u L Lymph # (Auto) (0.8-4.8) 10^3/u L [place] # (Auto) (0.2-0.9) 10^3/u L Eos # (Auto) (0.0-0.8) 10^3/u L Baso # (Auto) (0.0-0.1) 10^3/u L Nucleated RBC % (a uto) % Nucleated RBCs # /100WBC PT (10.5-13.3) SECO NDS INR (0.8-1.2) Sodium (136-145) mmol/L Potassium (3.5-5.1) mmol/L Chloride (98-107) mmol/L Carbon Dioxide (22-29) mmol/L Anion Gap (5-19) BUN (8-23) mg/dL Creatinine (0.5-0.9) mg/dL GFR Calculation (90-130) mL/min Glucose (65-115) mg/dL Calculated Osmolal ity (285-295) mOsm/k g Lactate 1.4 (0.5-2.2) mmol/L Calcium (8.5-10.5) mg/dL Total Bilirubin (0.15-1.2) mg/dL AST (0-32) U/L ALT (0-33) U/L Alkaline Phosphata se (35-105) IU/L Total Protein (6.6-8.7) g/dL Albumin (3.5-5.2) g/dL Globulin (1.3-4.6) g/dL Lipase (13-60) U/L Urine Color Yellow (Yellow) Urine Appearance Cloudy (CLEAR) Urine pH 5 (5-7) Ur Specific Gravit y 1.015 (1.005-1.030) Urine Protein Trace (Negative) Urine Glucose (UA) Norm (Normal) Urine Ketones 1+ H (Negative) Urine Blood 3+ H (Negative) Urine Nitrate Negative (Negative) Urine Bilirubin Neg (NEGATIVE) Urine Urobilinogen Norm (Negative) mg/dL Ur Leukocyte Bree ase 1+ H (Negative) Urine RBC 40-50 H (0-2) /hpf Urine WBC 15-25 H (0-5) /hpf Ur Squamous Epith Cells 25-40 H (0-5) Calcium Oxalate Cr ystal 5-10 H /hpf Amorphous Sediment 1+ Urine Bacteria 2+ H (NONE) Imaging Data^: CXR: My impression: no acute abnormality EKG Data^: EKG 1: Attestation: I personally reviewed and interpreted this EKG as follows: EKG interpretation date: 07/29/19 EKG interpretation time: 19:32 Interpretation: nsr hr [address] or t wave abnormalities qrs 96 qtc 388 Critical Care Time Critical Care Time: Critical Care Time: Yes Total Critical Care Time: 36 Attestation: This case had a high probability of a clinically significant, sudden, or life threatening deterioration of this patient's condition which required my full and direct attention, intervention and personal management. Discharge Plan Discharge Patient Disposition: Admitted As Inpatient Clinical Impression: Septic shock Condition: Stable Referrals: Tommie Feliz Jr, MD [Primary Care Provider] - Coding Level of Care Code ED Oiling Machine Operator for Chg Fwd Exam Comprehensive
[2019-07-29] MEDS: piperacillin-tazobactam 3.375 GM in sodium chloride 0.9% (plus) 50 ML IV (18:46)
[2019-07-29] MEDS: sodium chloride 0.9% 1,000 ML 999 ML IV ×2 (18:46→22:25)
[2019-07-29] MEDS: vancomycin 1,000 MG in sodium chloride 0.9% 250 ML 250 MG IV (18:47)
[2019-07-29 18:55] LABS: Basophils % 0.2 %; Hematocrit 24.7 % (37.0-47.0); Hemoglobin 7.5 g/dL (11.5-15.3); Lymphocytes # 0.5 10^3/uL (0.8-4.8); Lymphocytes % 4.3 %; Mean Corpuscular HGB Conc 30.4 g/dL (30.0-36.0); Mean Corpuscular Hemoglobin 25.4 pg (28.0-34.0); Mean Corpuscular Volume 83.7 fL (81-99); Mean Platelet Volume 9.4 fL (7.4-10.4); Monocytes # 0.6 10^3/uL (0.2-0.9); Neutrophils # 11.2 10^3/uL (1.8-7.7); Neutrophils % 89.9 %; Nucleated Red Blood Cells % 0 %; Platelet Count 436 10^3/cmm (130-400); Red Blood Count 2.95 10^6/uL (4.1-5.3); White Blood Count 12.4 10^3/uL (4.0-10.0)
[2019-07-29 19:03] LABS: INR 1.66 (0.8-1.2)
[2019-07-29 19:11] LABS: Alanine Aminotransferase 38 U/L (0-33); Albumin Level 2.3 g/dL (3.5-5.2); Alkaline Phosphatase 177 IU/L (35-105); Anion Gap 13.7 (5-19); Aspartate Amino Transferase 34 U/L (0-32); Blood Urea Nitrogen 23 mg/dL (8-23); Calcium 9.2 mg/dL (8.5-10.5); Carbon Dioxide 29 mmol/L (22-29); Chloride 96 mmol/L (98-107); Globulin 5.4 g/dL (1.3-4.6); Glomerular Filtration Rate 71.8 mL/min (90-130); Glucose 161 mg/dL (65-115); Lipase 3 U/L (13-60); Osmolality Calculated 278 mOsm/kg (285-295); Potassium 4.7 mmol/L (3.5-5.1); Sodium 134 mmol/L (136-145); Total Bilirubin 0.4 mg/dL (0.15-1.2); Total Protein 7.7 g/dL (6.6-8.7)
[2019-07-29 19:12] LABS: Lactate (Lactic Acid level) 1.4 mmol/L (0.5-2.2)
[2019-07-29 20:03] LABS: Glucose Urine UA Norm (Normal); Ketones Urine 1+ (Negative); Protein Urine Trace (Negative); Specific Gravity, Urine 1.015 (1.005-1.030); Urine Appearance Cloudy (CLEAR); Urine Color Yellow (Yellow); pH Urine 5 (5-7)
[2019-07-29 20:04] LABS: Add Urine Microscopic? YES; Bilirubin Urine Neg (NEGATIVE); Blood Urine 3+ (Negative); Leukocyte Esterase Urine 1+ (Negative); Nitrate Urine Negative (Negative); Urobilinogen Urine Norm (Negative)
[2019-07-29 20:05] LABS: Bacteria Urine 2+; RBC Urine 40-50 /hpf (0-2); Squamous Epithelial Cell Urine 25-40 (0-5); WBC Urine 15-25 /hpf (0-5)
[2019-07-29 20:07] LABS: Add Urine Culture? No; Amorphous Sediment Urine 1+
--- NOTE | 2019-07-29 20:35 | P.HP_ITS ---
Providers/Chief Complaint Primary Care Provider: Tommie Feliz Jr, MD Chief Complaint: FEVER; AMS History of Present Illness Josfeina Lara is a 68 year old female who has had multiple admissions in the past due to sepsis, carries diagnosis of severe multiple sclerosis, bedbound, sacral decubitus ulcer status post debridement on 06/14, chronic indwelling Ibrahim catheter ESBL UTIs, atrial fibrillation, on previous admission Eliquis was discontinued because of anemia coming in today for low blood pressure. Patient seems to be very confused and is not giving him much information. Jae licha nurse stating that at baseline she normally conversation, lately she is getting more confused, this morning she was moaning because of pain, she was febrile, hypotensive in 80s, she received couple of doses of Percocet which did not relieve her pain. Site of pain was not able to be localized. She was sent to the ER for further evaluation. Diagnostics in the ER revealed sepsis, she is febrile, hypotensive in low 80s, positive leukocytosis, She has been given vancomycin and Zosyn in the ER along 1 L normal saline Blood pressure responding to fluid resuscitation I would cancel covid testing, as it is unlikely in her scenario Chest x-ray reveals chronic changes without acute infiltrates however is not a good AP view Considering abnormal transaminases I have ordered CT abdomen and gallbladder ultrasound Review of Systems General: Reports: ROS unobtainable due to medical condition (Septic encephalopathy) Medications/Allergies Home Medications Medication Instructions Recorded Confirmed Last Taken Type Culturelle 1 cap PO DAILY 03/30/19 06/01/19 05/30/19 History Dakin's Solution See Rx Instructions .ROUTE .COMPLEX 03/30/19 06/01/19 05/30/19 21:00 History Eucerin 1 applic TOPICAL BID PRN 03/30/19 06/01/19 Unknown History Latuda 40 mg PO DAILY 03/30/19 05/31/19 05/30/19 History Prostat Liq 15 ml PO TID 03/30/19 05/31/19 05/29/19 14:00 History albuterol sulfate 2.5 mg INHALATION QID PRN 03/30/19 05/31/19 Unknown History allopurinol 100 mg PO DAILY 03/30/19 05/31/19 05/29/19 12:00 History artificial tears(hypromellose) 1 drp OPHTHALMIC (EYE) QID 03/30/19 06/01/19 05/30/19 History ascorbic acid (vitamin C) [Vitamin 1,000 mg PO BID 03/30/19 05/31/19 05/30/19 17:00 History C] baclofen 10 mg PO BID 03/30/19 05/31/19 05/30/19 17:00 History bisacodyl [Dulcolax (bisacodyl)] 10 mg GA DAILY PRN 03/30/19 05/31/19 05/30/19 History docusate sodium [Colace] 100 mg PO BID 03/30/19 06/01/19 03/30/19 10:25 History duloxetine [Cymbalta] 60 mg PO DAILY 03/30/19 05/31/19 05/30/19 History furosemide [Lasix] 20 mg PO DAILY 03/30/19 06/01/19 05/30/19 History levothyroxine [Synthroid] 50 mcg PO DAILY 03/30/19 05/31/19 05/30/19 History magnesium hydroxide [Milk of 30 ml PO DAILY PRN 03/30/19 05/31/19 Unknown History Magnesia] nitroglycerin [Nitromist] 1 spray TRANSLINGUAL PRN 03/30/19 06/01/19 Unknown History ondansetron HCl [Zofran] 4 mg PO Q4H PRN 03/30/19 05/31/19 05/30/19 History pantoprazole [Protonix] 40 mg PO DAILY 03/30/19 05/31/19 05/30/19 History pediatric multivitamin [Gummi Bear 1 tab PO DAILY 03/30/19 06/01/19 05/30/19 10:00 History Multivitamin] simvastatin 20 mg PO QPM 03/30/19 05/31/19 05/30/19 History sodium chloride 0.9 % (flush) See Rx Instructions .ROUTE .COMPLEX 03/30/1903/30/19 History [Normal Saline Flush] sodium chloride [Saline Mist] 1 spray INTRANASAL QID 03/30/19 06/01/19 05/30/19 History tamsulosin [Flomax] 0.4 mg PO BID 03/30/19 06/01/19 05/29/19 History lactulose 20 g PO BID 05/30/19 06/01/19 05/29/19 12:00 History oxycodone-acetaminophen [Percocet] 1 tab PO Q6H PRN #20 tab 05/30/19 Unknown Rx polyethylene glycol 3350 [Miralax] 17 g PO DAILY 05/30/19 06/01/19 Unknown History Remeron 7.5 mg PO DAILY 05/31/19 05/31/19 05/30/19 History aspirin 81 mg PO DAILY 05/31/19 05/31/19 05/29/19 12:00 History duloxetine [Cymbalta] 30 mg PO DAILY 05/31/19 05/31/19 05/30/19 History methenamine hippurate 1 g PO BID 05/31/19 05/31/19 05/30/19 History Allergies Allergy/AdvReac Type Severity Reaction Status Date / Time acetaminophen [From Tylenol] Allergy Unknown Unknown Verified 05/29/19 14:20 codeine Allergy Unknown Unknown Verified 05/29/19 14:20 hydrocodone Allergy Unknown Unknown Verified 05/29/19 14:20 latex Allergy Unknown Unknown Verified 05/29/19 14:20 morphine Allergy Unknown Unknown Verified 05/29/19 14:20 zolpidem [From Ambien] Allergy Unknown Unknown Verified 05/29/19 14:20 PFSH Acute PFSH: Medical History (Updated 07/29/19 @ 21:19 by Jewels Nazario MD) CVA (cerebral vascular accident) Dementia Depression DVT (deep venous thrombosis) History of ESBL E. coli infection Morbid obesity Multiple sclerosis Nephrolithiasis Non-insulin dependent type 2 diabetes mellitus Oxygen dependent Paroxysmal A-fib Ureteral stenosis, left Surgical History (Updated 07/29/19 @ 21:19 by Jewels Nazario MD) S/P debridement 06/14 Post debridement hemorrhage which was controlled conservatively Social History Smoking and tobacco status: former smoker Alcohol intake: never Adopted: No Caregiver/support person: No Housing: Assisted Living Facility History of recent travel: No Current gender identity: Female Vitals/I&O/Wt Last Vital Signs Temp 100.1 F H 07/29/19 19:34 Pulse 86 07/29/19 19:56 Resp 22 H 07/29/19 19:56 BP 92/50 07/29/19 19:56 Pulse Ox 100 07/29/19 19:56 Weight last 48 hrs Weight 102.058 kg Physical Exam Narrative: EXAM NARRATIVE: Head to toe examination Morbidly obese female Laying in her bed in flaccid posture Able to make eye contact and answer couple of my questions however speech is not clear she is very drowsy, PERRLA JVD not appreciated PICC line has been removed Variable S1-S2, positive signs of fluid overload Decreased breath sounds bilaterally with rhonchi at the bases No active respiratory distress Positive Brunner sign, local tenderness right upper quadrant however no other signs of rigidity or peritonitis, umbilical hernia positive, visceral obesity, distended abdomen Septic encephalopathy, she is awake, drowsy, oriented to herself Lower extremity bilateral pedal edema 2+ 7 x 7 x 4 cm rectal decubitus ulcer with good granulation tissue no evidence of active drainage 5 x 7 x 3 left hip wound no evidence of active bleeding Negatives No active bleeding site No active purulent drainage from sacral ulcer No purulent discharge from chronic indwelling catheter No facial asymmetry Data : 07/29/19 18:14 07/29/19 18:14 Micro: Microbiology 07/29/19 18:47 Blood Culture - Preliminary Blood SPECIMEN COLLECTED 07/29/19 18:46 Blood Culture - Preliminary Blood SPECIMEN COLLECTED A&P Assessment and plan (1) Septic shock: Status: Acute (2) Chronic osteomyelitis of sacrum: Status: Acute (3) Anemia: Status: Acute (4) Closed displaced fracture of right femoral neck: Status: Acute (5) Recurrent UTI: Status: Acute (6) Chronic indwelling Ibrahim catheter: Status: Acute (7) Decubitus ulcer of coccygeal region: Status: Acute Qualifiers: Pressure injury stage: unspecified pressure injury stage Qualified Code(s): L89.159 - Pressure ulcer of sacral region, unspecified stage (8) Paroxysmal A-fib: Status: Acute (9) DVT (deep venous thrombosis): Status: Acute (10) Multiple sclerosis: Status: Acute (11) Altered mental status: Status: Acute Qualifiers: Altered mental status type: transient alteration of awareness Qualified Code(s): R40.4 - Transient alteration of awareness (12) Septic encephalopathy: Status: Acute Additional A&P Information Septic shock with septic encephalopathy Sepsis criteria met with fever, leukocytosis, hypotension, Currently encephalopathic Patient is DNR/DNI Patient has a positive Brunner sign, abnormal transaminases, I would get CT abdomen and pelvis with contrast and get gallbladder ultrasound, patient is not icteric, bilirubin normal less likely to be cholangitis, does not need MRCP on urgent basis Multiple sources of infection including indwelling Ibrahim catheter, recurrent UTIs with ESBL, sacral ulcer, she is not a candidate for colostomy for risk of flap necrosis because of bedbound situation and body habitus, no active purulent drainage from the sacral wound, PICC line was removed on previous admission which grew coagulase-negative staph, chronic osteomyelitis, bone culture revealed Proteus, ESBL, MRSA, enterococcus, I would start IV fluids, vancomycin and imipenem, obtain blood cultures, I would avoid getting another urine culture at this point COVID testing was canceled, no sick contacts at the facility Considering her poor progression and multiple admissions, she might benefit from palliative consult Paroxysmal A. fib not on anticoagulation because of bleeding from sacral wound Currently variable S1-S2 without RVR Would hold AV lazaro blocking agent because of hypotension Chronic leg edema: Hold Lasix Chronic sacral decubitus ulcer with chronic osteomyelitis Low-dose analgesic use Recent debridement was done in May by Dr. Alvarez Chronic indwelling Ibrahim catheter: Draining concentrated urine I would hold tamsulosin at this point We will obtain CT abdomen to rule out nephrolithiasis N.p.o. because of septic encephalopathy DNR/DNI Patient has a guarded prognosis because of multiple comorbid condition and chronic osteomyelitis, unfortunately could not get diverting colostomy because of her above-mentioned reasons, she is high risk for morbidity and mortality Consider palliative consult Attestations Medical Necessity Statement*: Anticipating stay in the hospital cross more than 2 midnights because of septic encephalopathy and shock currently needing ICU for IV antibiotics and fluids, carries guarded prognosis Time Spent in Patient Care: 50 Coding Level of Care Code Acute Insurance Verification Clerk for [facility] Fwd Diagnoses Septic shock A41.9; R65.21 Chronic osteomyelitis of sacrum M86.68 Anemia D64.9 Closed displaced fracture of right femoral neck S72.001A Recurrent UTI N39.0 Chronic indwelling Ibrahim catheter Z96.0 Decubitus ulcer of coccygeal region L89.159 Pressure injury stage: unspecified pressure injury stage Paroxysmal A-fib I48.0 DVT (deep venous thrombosis) I82.409 Multiple sclerosis G35 Altered mental status R40.4 Altered mental status type: transient alteration of awareness Septic encephalopathy G93.41
--- NOTE | 2019-07-29 20:48 | CTR_ITS ---
PROCEDURE INFORMATION: Exam: CT Abdomen And Pelvis With Contrast Exam date and time: 07/29/2019 9:02 PM Age: 68 years old Clinical indication: Fever; Patient HX: HX of nephrolithiasis now septic; Additional info: Nephrolithiasis history and currently septic TECHNIQUE: Imaging protocol: Computed tomography of the abdomen and pelvis with intravenous contrast. Radiation optimization: All CT scans at this facility use at least one of these dose optimization techniques: automated exposure control; mA and/or kV adjustment per patient size (includes targeted exams where dose is matched to clinical indication); or iterative reconstruction. Contrast material: OMNI 300; Contrast volume: 95 ml; Contrast route: 20G; COMPARISON: CT abdomen pelvis w con* [id number] 03/30/2019 7:50 PM RADIATION DOSE METRICS: Total DLP: 1873.54 mGy-cm FINDINGS: Liver: There are no focal liver lesions present. Gallbladder and bile ducts: The gallbladder is normal. Pancreas: The pancreas is partially fatty replaced. Spleen: The spleen is enlarged, measuring up to 15.1 x 5.7 x 15.5 cm. The spleen is enlarged since the 03/30/2019 examination. Adrenals: There is an unchanged left adrenal myelolipoma measuring approximately 1.5 cm. Kidneys and ureters: Bilateral nephrolithiasis is again seen, without obstruction. The left kidney is atrophic. There are bilateral simple appearing renal cortical cysts, largest on the right measuring 5.5 cm. Stomach and bowel: There is likely rectal impaction, with copious retained fecal material in the rectosigmoid colon. No mural thickening is seen. The stomach is normal. Appendix: No evidence of appendicitis. Intraperitoneal space: No free air. No free fluid. Vasculature: There is no evidence of an abdominal aortic aneurysm. Atherosclerotic vascular disease is noted. Lymph nodes: No bulky lymphadenopathy. Bladder: Ibrahim catheter is in the bladder. The bladder is nondistended. Reproductive: Unremarkable as visualized. Bones/joints: There is suspected avascular necrosis at the weight-bearing surface of the left femoral head. The bones are osteopenic. Central superior endplate depressions are seen at L2 and L4. These are chronic. Soft tissues: There is a left decubitus ulcer, with findings of osteomyelitis at the left ischial tuberosity. A right midline sacral decubitus ulcer extends to the sacrococcygeal junction, with evidence of osteomyelitis in this location, as well. There is a chronic right femoral neck fracture, with proximal migration of the femur and pseudoarticulation of the fracture line. CT/CT abdomen pelvis w con* [id number] IMPRESSION: 1. Findings of likely rectal impaction, as above. No findings of colitis or bowel obstruction. 2. Splenomegaly, new since prior study. 3. Decubitus ulcers with evidence of osteomyelitis at the left ischial tuberosity and sacrococcygeal junction, as above. 4. Chronic right hip fracture, with evidence of pseudoarticulation at the fracture line. 5. 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 6. Nonobstructing nephrolithiasis bilaterally. COMMENTS: Consistent with the [employer]'s Incidental Findings Committee white paper (J Am Caterina Radiol 2018): Any incidental cystic renal lesion classified in this report as too small to characterize or simple appearing is likely a benign cyst. No follow-up imaging is recommended for these lesions per consensus recommendations based on imaging criteria. Radiation Dose CTDIVOL = (mGy): DLP = 1873.54 (mGy-cm)
[2019-07-29] MEDS: iohexol 300 mg/mL 100 mL Btl IV (21:24)
--- NOTE | 2019-07-29 22:39 | PC.PHAR ---
Creatinine clearance is 111.4. Vancomycin is dosed at 1250mg IVPB every 12 hours to produce a predicted trough level of 17.19 (population based pharmacokinetic analysis). A trough level has been ordered from the lab to be obtained before the third dose to confirm and adjust if needed.
[2019-07-29] MEDS: artificial tears Op Soln 15 mL Btl 1 DROP EYE-BOTH (23:21)
[2019-07-29] MEDS: sodium chloride 0.9% 1,000 ML 75 ML IV (23:21)
[2019-07-30] VITALS (57 sets, daily range): BP systolic 80–124; BP diastolic 33–63; PULSE 82–103; RESP 14–28; TEMP 36.4–38; O2SAT 85–99
--- NOTE | 2019-07-30 00:19 | US_ITS ---
WS: [id number] RIGHT UPPER QUADRANT ULTRASOUND HISTORY: infection COMPARISON: 04/28/2012 Liver: 15.8 cm in length. Normal size and echogenicity with no intrahepatic dilatation. No mass. Gallbladder: Numerous stones in the gallbladder. Lumen is slightly contracted. No wall thickening or pericholecystic fluid. CBD: 0.4 cm Pancreas: Normal size and echogenicity. Right kidney: 10.6 cm in length. Normal size kidney. Mild increased echogenicity. Simple cyst measure s 5.3 x 4.3 x 4.3 cm RIGHT kidney. Aorta and IVC: Unremarkable. No ascites. US/US gall bladder [id number] IMPRESSION: 1. Cholelithiasis and a mildly contracted gallbladder. No biliary obstruction. 2. Simple RIGHT renal cyst.
--- NOTE | 2019-07-30 00:53 | PC.NURSE ---
Admit note Patient arrived via ER bed on 6L/NC. Full assist with 4 staff members to move patient into ICU 2 bed. Call light within reach. Vitals obtained. Orders received.
[2019-07-30] MEDS: sodium chloride 0.9% 1,000 ML 999 ML IV (04:22)
[2019-07-30 05:24] LABS: Basophils % 0.3 %; Eosinophils % 0.4 %; Hematocrit 21.5 % (37.0-47.0); Lymphocytes # 0.5 10^3/uL (0.8-4.8); Lymphocytes % 6.5 %; Mean Corpuscular HGB Conc 28.4 g/dL (30.0-36.0); Mean Corpuscular Hemoglobin 24.8 pg (28.0-34.0); Mean Corpuscular Volume 87.4 fL (81-99); Mean Platelet Volume 9.6 fL (7.4-10.4); Monocytes # 0.6 10^3/uL (0.2-0.9); Neutrophils # 6.1 10^3/uL (1.8-7.7); Nucleated Red Blood Cells % 0 %; Platelet Count 324 10^3/cmm (130-400); Red Blood Count 2.46 10^6/uL (4.1-5.3); White Blood Count 7.3 10^3/uL (4.0-10.0)
[2019-07-30 05:41] LABS: Blood Urea Nitrogen 21 mg/dL (8-23); Calcium 7.9 mg/dL (8.5-10.5); Carbon Dioxide 25 mmol/L (22-29); Chloride 104 mmol/L (98-107); Creatinine Clr Calc Pharmacy 84.9403; Glomerular Filtration Rate 83.7 mL/min (90-130); Glucose 137 mg/dL (65-115); Osmolality Calculated 283 mOsm/kg (285-295); Sodium 137 mmol/L (136-145)
[2019-07-30 06:15] LABS: Hemoglobin 6.1 g/dL (11.5-15.3)
--- NOTE | 2019-07-30 08:47 | P.PN_ITS ---
Subjective Subjective: Interval history: Patient resting in bed at time of exam today. She denied any chest pain or shortness of breath. Reported that she is typically on 2 L of oxygen by nasal cannula at baseline. Patient reports she has not had a bowel movement in several days, denies any abdominal pain at this time. Vitals/I&O/Wt Last Vital Signs Temp 100.4 F H 07/30/19 05:15 Pulse 103 H 07/30/19 08:39 Resp 14 07/30/19 08:39 BP 113/61 07/30/19 08:30 Pulse Ox 92 07/30/19 08:39 07/29/19 07/30/19 07/30/19 22:59 06:59 14:59 Intake Total 1236.95 / 1236.95 Output Total 550 / 550 Balance 686.95 / 686.95 Weight last 48 hrs Weight 102.058 kg Physical Exam Const: COMMON NORMALS: oriented x3 GENERAL APPEARANCE: cooperative ORIENTATION/CONSCIOUSNESS: Yes awake, Yes oriented to person and Yes oriented to place HENMT: COMMON NORMALS: normocephalic HEAD & SCALP: normocephalic Eye: COMMON NORMALS: PERRL PUPIL: Yes PERRL Neck/C-Spine: COMMON NORMALS: supple GENERAL: Yes normal visual inspection Resp: AUSCULTATION: no rhonchi and no wheezes OTHER: Oxygen by nasal cannula in place, 4 L. Diminished breath sounds bilaterally, no appreciable wheezing or rhonchi Cardio: COMMON NORMALS: regular rhythm and no murmurs RATE: tachycardic RHYTHM: regular rhythm GI: COMMON NORMALS: soft to palpation and non-tender INSPECTION: No abdominal distension AUSCULTATION: Yes normoactive bowel sounds PALPATION: Yes soft and Yes firm (Firm to palpation in the right upper quadrant, no tenderness in this area) : COMMON NORMALS: Yes no CVA tenderness BLADDER/KIDNEY EXAM: Yes no CVA tenderness Back/Pelvis: COMMON NORMALS: no CVA tenderness Extremity: COMMON NORMALS: no clubbing, cyanosis or edema and no calf t enderness Neuro: COMMON NORMALS: oriented x3 SENSORIUM/ORIENTATION: Yes oriented to person and Yes oriented to place OTHER: Paraplegic Psych: COMMON NORMALS: cooperative Skin: OTHER: Sacral ulcer Data : 07/30/19 04:28 07/30/19 04:28 Micro: Microbiology 05/03/20 18:47 Blood Culture - Preliminary Blood Gram positive cocci 07/29/19 18:46 Blood Culture - Preliminary Blood Gram positive cocci A&P Assessment and plan (1) Septic shock: Secondary to urinary tract infection as well as sacral ulcer with chronic osteomyelitis Recent bone culture showing Proteus, ESBL, MRSA and enterococcus will continue on IV vancomycin and imipenem. Patient has improvement in blood pressure and heart rate today, will wean Levophed as tolerated. Blood cultures pending Patient has had chronic osteomyelitis of the left ischium, has been followed by wound care and had recent bone culture and debridement by general surgery. Status: Acute (2) Anemia: Acute anemia with a hemoglobin of 6 today, type and screen with order for packed red blood cells today Status: Acute (3) Septic encephalopathy: Reported to have encephalopathy secondary to sepsis on admission, appears to be improved today as patient is alert and oriented to person place and time. Status: Acute (4) Chronic osteomyelitis of sacrum: Continue with IV antibiotics as above. Culture recently showing Proteus, ESBL, MRSA and enterococcus Continue vancomycin and imipenem. Consider transitioning to vancomycin and gentamicin if no improvement Status: Acute (5) Chronic indwelling Ibrahim catheter: With a history of ESBL E. coli UTI Continue to monitor urine culture and continue on imipenem Status: Acute (6) Oxygen dependent: Patient is typically on 2 L of oxygen by nasal cannula at baseline, will continue to wean oxygen as tolerated Status: Acute (7) Paroxysmal A-fib: Paroxysmal atrial fibrillation, in sinus rhythm at this time. Eliquis 2.5 mg twice daily is on hold due to acute anemia Patient is not on any other lazaro blocking agents. Currently hypotensive on Levophed so we will continue to monitor closely Status: Acute (8) DVT (deep venous thrombosis): History of DVT, in the setting of paraplegia Eliquis 2.5 mg twice a day is on hold due to acute anemia requiring transfusion Status: Acute (9) Multiple sclerosis: Baseline paraplegia Status: Acute (10) CVA (cerebral vascular accident): Baseline paraplegia Status: Acute Additional A&P Information Significant comorbidities with chronic worsening medical problems, do agree with admitting physician that hospice care would be appropriate, will continue close monitoring but if not clinical improvement will discuss further with patient and guardian. DVT prophylaxis: SCDs, no pharmacologic prophylaxis due to concern for acute anemia Diet: N.p.o., will increase as tolerated today CODE STATUS: Allow natural , Do Not Resuscitate/DNI Attestations Medical Necessity Statement*: Patient requires further hospitalization due to septic shock Coding Level of Care Code Acute Medical Technologist Generalist for Chg Fwd Exam Comprehensive Diagnoses Septic shock A41.9; R65.21 Anemia D64.9 Septic encephalopathy G93.41 Chronic osteomyelitis of sacrum M86.68 Chronic indwelling Ibrahim catheter Z96.0 Oxygen dependent Z99.81 Paroxysmal A-fib I48.0 DVT (deep venous thrombosis) I82.409 Multiple sclerosis G35 CVA (cerebral vascular accident) I63.9
[2019-07-30] MEDS: levothyroxine 50 mcg Tablet PO (10:05)
[2019-07-30] MEDS: allopurinol 100 mg Tablet PO (10:06)
[2019-07-30] MEDS: pantoprazole DR 40 mg Tablet PO (10:06)
[2019-07-30] MEDS: lactulose oral liq 20 gm/30 mL UDC PO ×2 (10:06→18:25)
[2019-07-30] MEDS: baclofen 10 mg Tablet PO ×2 (10:06→18:25)
[2019-07-30] MEDS: artificial tears Op Soln 15 mL Btl 1 DROP EYE-BOTH ×3 (13:38→20:46)
[2019-07-30] MEDS: sodium chloride 0.9% (100 ml) 100 ML 50 ML (13:39)
[2019-07-30] MEDS: sodium chloride 0.9% 1,000 ML 75 ML IV (16:04)
--- NOTE | 2019-07-30 23:46 | XR_ITS ---
WS: [id number] XR chest 1V portable [id number] REASON FOR EXAM: trouble breathing FINDINGS: The lung ward show bilateral interstitial changes markedly accentuated since July 29, 2019. The heart is not enlarged. The hilum was were normal as well as the apices. There is degenerate changes throughout the thoracic spine. XR/XR chest 1V portable [id number] IMPRESSION: Diffuse interstitial edema
--- NOTE | 2019-07-30 23:49 | PC.NURSE ---
DR COHN PT CALLED OUT AND STATED SHE WAS HAVING TROUBLE BREATHING, O2 SAT WAS 86. DR VANESSA WAS NOTIFIED. GAVE ORDER FOR BIPAP AND CHEST XRAY.
[2019-07-31] VITALS (16 sets, daily range): BP systolic 90–116; BP diastolic 39–67; PULSE 74–102; RESP 11–33; TEMP 36.4–36.6; O2SAT 91–100
[2019-07-31] MEDS: FUROsemide 10 mg/mL SDV 2mL 20 MG IVP (00:12)
[2019-07-31 05:10] LABS: Vancomycin Trough 25.9 ug/mL (10-15)
--- NOTE | 2019-07-31 06:10 | PC.NURSE ---
SHIFT SUMMARY PT HAS BEEN TURNED PERIODICALLY THROUGHOUT THE NIGHT.PT IV REMAINS PATENT. PT HAS REMAINED ON BIPAP SINCE EPISODE OF HAVING TROUBLE BREATHING. PT WAS GIVEN A BED BATH AND WOUNDS WERE REDRESSED. PT HEELS HAVE BEEN FLOATED, PT WANTED TO HAVE SCDS OFF FOR A LITTLE WHILE, THEY ARE CURRENTLY OFF. PT HAS REMAINED ALERT AND ORIENTATED. PT HAD TO HAVE LEVO TURNED BACK ON DUE TO MAP BEING BELOW 65.
[2019-07-31 08:12] LABS: Basophils % 0.4 %; Eosinophils # 0.1 10^3/uL (0.0-0.8); Eosinophils % 1.4 %; Hematocrit 27.1 % (37.0-47.0); Lymphocytes # 1.3 10^3/uL (0.8-4.8); Lymphocytes % 15.8 %; Mean Corpuscular HGB Conc 29.5 g/dL (30.0-36.0); Mean Corpuscular Hemoglobin 25.2 pg (28.0-34.0); Mean Corpuscular Volume 85.5 fL (81-99); Mean Platelet Volume 9.7 fL (7.4-10.4); Monocytes # 0.8 10^3/uL (0.2-0.9); Monocytes % 9.5 %; Neutrophils # 6.1 10^3/uL (1.8-7.7); Neutrophils % 72.1 %; Nucleated Red Blood Cells % 0 %; Platelet Count 398 10^3/cmm (130-400); Red Blood Count 3.17 10^6/uL (4.1-5.3); Red Cell Distribution Width 17.4 % (12.1-15.1); White Blood Count 8.4 10^3/uL (4.0-10.0)
[2019-07-31 08:26] LABS: Anion Gap 14.7 (5-19); Blood Urea Nitrogen 17 mg/dL (8-23); Calcium 8.3 mg/dL (8.5-10.5); Carbon Dioxide 23 mmol/L (22-29); Chloride 105 mmol/L (98-107); Creatinine Clr Calc Pharmacy 84.9403; Glucose 111 mg/dL (65-115); Osmolality Calculated 285 mOsm/kg (285-295); Potassium 3.7 mmol/L (3.5-5.1); Sodium 139 mmol/L (136-145)
--- NOTE | 2019-07-31 09:01 | P.PN_ITS ---
Subjective Subjective: Interval history: And awake in bed at time of exam this morning. She reported that she had some trouble breathing overnight, now improved. She denies any abdominal discomfort. Patient reported to have desaturation overnight concern for fluid overload and given IV Lasix. Vitals/I&O/Wt Last Vital Signs Temp 97.6 F 07/31/19 05:21 Pulse 89 07/31/19 07:44 Resp 18 07/31/19 07:44 BP 94/53 07/31/19 05:21 Pulse Ox 94 07/31/19 07:44 07/30/19 07/31/19 07/31/19 22:59 06:59 14:59 Intake Total 1304 / 2871.05 79.420 / 79.420 Output Total 500 / 500 Balance 1304 / 2871.05 -500 / 2371.05 79.420 / 79.420 Weight last 48 hrs Weight 102.058 kg Physical Exam Const: GENERAL APPEARANCE: cooperative ORIENTATION/CONSCIOUSNESS: Yes awake, Yes oriented to person and Yes oriented to place HENMT: COMMON NORMALS: normocephalic HEAD & SCALP: normocephalic Eye: COMMON NORMALS: PERRL PUPIL: Yes PERRL Neck/C-Spine: COMMON NORMALS: supple GENERAL: Yes normal visual inspection Resp: AUSCULTATION: no rhonchi and no wheezes OTHER: Oxygen by nasal cannula in place, 3 L. Diminished breath sounds bilaterally, no wheezing or rhonchi Cardio: COMMON NORMALS: regular rhythm and no murmurs RHYTHM: regular rhythm GI: COMMON NORMALS: soft to palpation and non-tender INSPECTION: No abdominal distension AUSCULTATION: Yes normoactive bowel sounds PALPATION: Yes soft and Yes firm (Firm to palpation in the right upper quadrant, no tenderness in this area) Extremity: COMMON NORMALS: no calf tenderness Neuro: SENSORIUM/ORIENTATION: Yes oriented to person and Yes oriented to place OTHER: Paraplegic Psych: COMMON NORMALS: cooperative Skin: OTHER: Sacral ulcer Data : 07/31/19 07:54 07/31/19 07:54 Micro: Microbiology 07/29/19 18:47 Blood Culture - Preliminary Blood Gram positive cocci 07/29/19 18:46 Blood Culture - Preliminary Blood Gram positive cocci A&P Assessment and plan (1) Septic shock: Improving, requiring decreased amount of Levophed at this time. We will continue to wean off today as tolerated Acute cystitis as well as sacral ulcer with chronic osteomyelitis Blood cultures now showing gram-positive cocci, replete blood cultures ordered and pending. Further evaluate with echocardiogram. Status: Acute (2) Anemia: Hemoglobin 6.1 status post transfusion on 07/30/2019 with improved hemoglobin of 8 today No evidence of any active bleeding, will continue to monitor sacral ulcer closely Status: Acute (3) Septic encephalopathy: Patient is more alert and awake today, will restart home psychiatric medications and continue to monitor closely Status: Acute (4) Chronic osteomyelitis of sacrum: Culture recently showing Proteus, ESBL, MRSA and enterococcus Continue vancomycin and imipenem. Status: Acute (5) Chronic indwelling Ibrahim catheter: With a history of ESBL E. coli UTI Remains on imipenem Status: Acute (6) Oxygen dependent: Patient is typically on 2 L of oxygen by nasal cannula at baseline, will continue to wean oxygen as tolerated Status: Acute (7) Paroxysmal A-fib: Paroxysmal atrial fibrillation, currently NSR Eliquis on hold due to acute anemia Patient is not on any other lazaro blocking agents. Status: Acute (8) DVT (deep venous thrombosis): History of DVT, in the setting of paraplegia Eliquis 2.5 mg twice a day is on hold due to acute anemia requiring transfusion Status: Acute (9) Multiple sclerosis: Baseline paraplegia Status: Acute (10) CVA (cerebral vascular accident): Baseline paraplegia Status: Acute Additional A&P Information Bacteremia: Echocardiogram ordered for further evaluation, blood culture showing gram-positive cocci, will continue on current antibiotic regimen with repeat cultures ordered Significant comorbidities with chronic worsening medical problems, do agree with admitting physician that hospice care would be appropriate, will continue close monitoring but if not clinical improvement will discuss further with patient and guardian. DVT prophylaxis: SCDs, no pharmacologic prophylaxis due to concern for acute anemia Diet: Continue with dysphagia diet and thickened liquids CODE STATUS: Allow natural , Do Not Resuscitate/DNI Attestations Medical Necessity Statement*: Patient requires further hospitalization due to sepsis and septic shock with bacteremia, continues to require ICU care Coding Level of Care Code Acute Grain Picker for [facility] Fwd Diagnoses Septic shock A41.9; R65.21 Anemia D64.9 Septic encephalopathy G93.41 Chronic osteomyelitis of sacrum M86.68 Chronic indwelling Ibrahim catheter Z96.0 Oxygen dependent Z99.81 Paroxysmal A-fib I48.0 DVT (deep venous thrombosis) I82.409 Multiple sclerosis G35 CVA (cerebral vascular accident) I63.9
--- NOTE | 2019-07-31 09:06 | USCV_ITS ---
Josefina Lara Age: 68 Gender: F : 1950 Exam Date: 07/31/2019 11:48 Ordering Phys: Elif Lewis DO Technologist: Betsy Snyder Exam Location: [facility] [place] Indication: BACTEREMIA BP: 95 / 50 HR: 89 Rhythm: Sinus Technical Quality: Suboptimal MEASUREMENTS (Male / Female) Normal Values 2D ECHO LV Diastolic Diameter PLAX 4.0 cm 4.2 - 5.9 / 3.9 - 5.3 cm LV Systolic Diameter PLAX 2.8 cm LV Chamber Size 4.2 cm IVS Diastolic Thickness 2.1 cm 0.6 - 1.0 / 0.6 - 0.9 cm IVS Systolic Thickness 2.1 cm LVPW Diastolic Thickness 2.6 cm 0.6 - 1.0 / 0.6 - 0.9 cm LVPW Systolic Thickness 3.1 cm RV Chamber Size 2.8 cm LVOT Diameter 2.1 cm LV Ejection Fraction 2D Teich 55.6 % LV Ejection Fraction MOD 2C 57.7 % LV Ejection Fraction 2C AL 55.9 % LA Diameter 4.5 cm LA Width 2.4 cm LA Height 3.2 cm RA Width 2.8 cm RA Height 2.5 cm Aorta at Sinotubular Diameter 3.5 cm M-MODE LV Diastolic Diameter MM 5.6 cm 4.2 - 5.9 / 3.9 - 5.3 cm LV Systolic Diameter MM 2.8 cm LV Ejection Fraction MM Teich 80.4 % IVS Diastolic Thickness MM 0.9 cm 0.6 - 1.0 / 0.6 - 0.9 cm IVS Systolic Thickness MM 1.9 cm LVPW Diastolic Thickness MM 1.2 cm 0.6 - 1.0 / 0.6 - 0.9 cm LVPW Systolic Thickness MM 1.7 cm RV Diastolic Diameter MM 1.6 cm Aortic Annulus Diameter 3.0 cm LA Ao Ratio MM 1.5 MV E Point Septal Separation 0.6 cm DOPPLER AV Peak Velocity 408.0 cm/s LVOT Peak Velocity 130.0 cm/s AV Area Cont Eq vti 0.9 cm squared AV Area Cont Eq pk 1.1 cm squared MV Area PHT 3.9 cm squared Mitral E to A Ratio 1.9 MV E' Velocity 18.0 cm/s Mitral E to MV E' Ratio 8.4 Mitral E to LV E' Lateral Ratio 9.3 Mitral E to LV E' Septal Ratio 7.7 TR Peak Velocity 443.0 cm/s TR Peak Gradient 78.6 mmHg TV Peak E Velocity 67.0 cm/s Right Atrial Pressure 3.0 mmHg Pulmonary Artery Systolic Pressu 81.5 mmHg PV Peak Velocity 114.0 cm/s RV Acceleration Time 0.1 s RV Ejection Time 0.3 s RV AcT/ET 0.5 FINDINGS Left Ventricle Normal left ventricular size, systolic function and wall thickness, with no regional wall motion abnormalities. Grade I/IV diastolic dysfunction (abnormal relaxation filling pattern), normal to mildly elevated filling pressures. Left ventricular ejection fraction is estimated at 60 %. Right Ventricle Normal right ventricular size and systolic function. Severe pulmonary hypertension, RVSP 81.5 mmHg. Right Atrium The right atrium is normal in size. Left Atrium Mildly increased left atrial size. Mitral Valve Mitral valve not well visualized. Structurally normal mitral valve. Mild-moderate mitral valve regurgitation. Aortic Valve Aortic valve not well visualized. Moderate aortic valve calcification. Moderate aortic valve stenosis, mean gradient 30.6 mmHg, EVANGELINA 0.85 cm squared. No aortic valve regurgitation. Tricuspid Valve Structurally normal tricuspid valve. Mild tricuspid valve regurgitation. Pulmonic Valve Pulmonic valve not well visualized. Pericardium Normal pericardium without effusion. Aorta Normal ascending aorta dimension. CONCLUSIONS Normal left ventricular size, systolic function and wall thickness, with no regional wall motion abnormalities. Grade I/IV diastolic dysfunction (abnormal relaxation filling pattern), normal to mildly elevated filling pressures. Left ventricular ejection fraction is estimated at 60 %. Normal right ventricular size and systolic function. Severe pulmonary hypertension, RVSP 81.5 mmHg. Mildly increased left atrial size. Mitral valve not well visualized. Structurally normal mitral valve. Mild-moderate mitral valve regurgitation. Aortic valve not well visualized. Moderate aortic valve calcification. Moderate aortic valve stenosis, mean gradient 30.6 mmHg, EVANGELINA 0.85 cm squared. No aortic valve regurgitation. When compared to the previous echocardiogram dictated 10/10/2018, the aortic valve disease appears to be new as does the pulmonary hypertension. However, both studies are suboptimal at best and the measurement of the pulmonary artery pressure on this study may be spurious. The aortic valve disease however, looks real. Dr. Ike Alvarez MD (Electronically Signed) Final Date: 31 Jul 2019 16:05 S
[2019-07-31] MEDS: pantoprazole DR 40 mg Tablet PO (09:22)
[2019-07-31] MEDS: FUROsemide 20 mg Tablet PO (09:22)
[2019-07-31] MEDS: baclofen 10 mg Tablet PO ×2 (09:22→17:55)
[2019-07-31] MEDS: allopurinol 100 mg Tablet PO (09:22)
[2019-07-31] MEDS: docusate sodium 100 mg Capsule PO ×2 (09:22→17:55)
[2019-07-31] MEDS: ascorbic acid 500 mg Tablet 1000 MG PO ×2 (09:22→17:55)
[2019-07-31] MEDS: duloxetine 60 mg Capsule PO (09:22)
[2019-07-31] MEDS: polyethylene glycol 3350 Pkt 17 gm PO (09:22)
[2019-07-31] MEDS: levothyroxine 50 mcg Tablet PO (09:22)
[2019-07-31] MEDS: lactulose oral liq 20 gm/30 mL UDC PO ×2 (09:22→17:55)
[2019-07-31] MEDS: tamsulosin 0.4 mg Capsule PO ×2 (09:23→17:55)
[2019-07-31] MEDS: duloxetine 30 mg Capsule PO (09:23)
[2019-07-31] MEDS: artificial tears Op Soln 15 mL Btl 1 DROP EYE-BOTH ×4 (09:23→21:42)
[2019-07-31] MEDS: lurasidone 20 mg Tablet 40 MG PO (09:49)
[2019-07-31] MEDS: sodium hypochlorite 0.25% Btl 473 mL TOPICAL (11:53)
[2019-08-01] VITALS (18 sets, daily range): BP systolic 90–112; BP diastolic 38–66; PULSE 79–96; RESP 6–43; TEMP 36.3–37.1; O2SAT 86–96
[2019-08-01] MEDS: sodium hypochlorite 0.25% Btl 473 mL 1 APPLIC TOPICAL ×2 (03:18→14:58)
[2019-08-01 05:17] LABS: Basophils % 0.3 %; Eosinophils # 0.1 10^3/uL (0.0-0.8); Eosinophils % 1.8 %; Hematocrit 26.1 % (37.0-47.0); Hemoglobin 7.8 g/dL (11.5-15.3); Lymphocytes # 1.4 10^3/uL (0.8-4.8); Lymphocytes % 19.3 %; Mean Corpuscular HGB Conc 29.9 g/dL (30.0-36.0); Mean Platelet Volume 10.2 fL (7.4-10.4); Monocytes # 0.7 10^3/uL (0.2-0.9); Neutrophils % 68.9 %; Nucleated Red Blood Cells % 0 %; Platelet Count 400 10^3/cmm (130-400); Red Cell Distribution Width 18.2 % (12.1-15.1); White Blood Count 7.2 10^3/uL (4.0-10.0)
[2019-08-01 05:46] LABS: Anion Gap 12.4 (5-19); Blood Urea Nitrogen 17 mg/dL (8-23); Calcium 8.4 mg/dL (8.5-10.5); Carbon Dioxide 24 mmol/L (22-29); Chloride 106 mmol/L (98-107); Creatinine Clr Calc Pharmacy 84.9403; Glucose 109 mg/dL (65-115); Osmolality Calculated 285 mOsm/kg (285-295); Potassium 3.4 mmol/L (3.5-5.1); Sodium 139 mmol/L (136-145)
[2019-08-01 06:06] LABS: Slide Review Slide Review Perform
--- NOTE | 2019-08-01 06:39 | PC.NURSE ---
SHIFT SUMMARY PT HAS REMAINED ALERT AND ORIENTATED. PT HAS BEEN TURNED PERIODICALLY. PT IV REMAINS PATENT. PT HAS BEEN ABLE TO INTAKE HONEY THICKENED LIQUIDS. NO RESPIRATORY DISTRESS EVENTS SO FAR THIS SHIFT.
--- NOTE | 2019-08-01 07:47 | PM.PN ---
Subjective Subjective: Interval history: Awake and alert this morning at time of exam. She reported chronic pain all over, no acute changes. She reported that her abdomen is feeling better after having a bowel movement yesterday. Patient denies any active chest pain. Vitals/I&O/Wt Last Vital Signs Temp 98.1 F 08/01/19 06:00 Pulse 80 08/01/19 06:00 Resp 23 H 08/01/19 06:00 BP 100/66 08/01/19 06:00 Pulse Ox 94 08/01/19 06:00 07/31/19 08/01/19 08/01/19 22:59 06:59 14:59 Intake Total 478.5 / 2298.720 Output Total 650 / 650 550 / 1200 Balance -171.5 / 1648.720 -550 / 1098.720 Physical Exam Const: GENERAL APPEARANCE: cooperative ORIENTATION/CONSCIOUSNESS: Yes awake, Yes oriented to person and Yes oriented to place HENMT: COMMON NORMALS: normocephalic HEAD & SCALP: normocephalic Eye: COMMON NORMALS: PERRL PUPIL: Yes PERRL Neck/C-Spine: COMMON NORMALS: supple GENERAL: Yes normal visual inspection Resp: AUSCULTATION: no rhonchi and no wheezes OTHER: Oxygen by nasal cannula in place, 4 L. Diminished breath sounds bilaterally, no wheezing or rhonchi Cardio: COMMON NORMALS: regular rhythm and no murmurs RHYTHM: regular rhythm GI: COMMON NORMALS: soft to palpation and non-tender INSPECTION: No abdominal distension AUSCULTATION: Yes normoactive bowel sounds PALPATION: Yes soft and Yes firm (Firm to palpation in the right upper quadrant, no tenderness in this area) Extremity: COMMON NORMALS: no calf tenderness Neuro: SENSORIUM/ORIENTATION: Yes oriented to person and Yes oriented to place OTHER: Paraplegic Psych: COMMON NORMALS: cooperative Skin: OTHER: Sacral ulcer Data : 08/01/19 04:19 08/01/19 04:19 Micro: Microbiology 07/29/19 18:47 Blood Culture - Preliminary Blood Strep agalactiae - (group b) 07/29/19 18:46 Blood Culture - Preliminary Blood Strep agalactiae - (group b) 07/31/19 09:45 Blood Culture - Preliminary Blood SPECIMEN COLLECTED 07/31/19 09:50 Blood Culture - Preliminary Blood SPECIMEN COLLECTED A&P Assessment and plan (1) Septic shock: Improving Patient titrated off of Levophed overnight acute cystitis as well as sacral ulcer with chronic osteomyelitis, bacteremia also present. Patient would not likely be a candidate for any type of surgical repair therefore will hold off on FELICIA at this time and continue with IV antibiotics that she will require for osteomyelitis and for bacteremia Follow-up with further culture results Patient would likely benefit from long-term acute care facility placement due to her chronic and complex wound care Status: Acute (2) Anemia: transfusion on 07/30/2019, hemoglobin remained stable No evidence of any active bleeding, will continue to monitor sacral ulcer closely Status: Acute (3) Septic encephalopathy: Awake and alert and appears to be at baseline Status: Acute (4) Chronic osteomyelitis of sacrum: Culture recently showing Proteus, ESBL, MRSA and enterococcus Continue vancomycin and imipenem. Status: Acute (5) Chronic indwelling Ibrahim catheter: With a history of ESBL E. coli UTI Remains on imipenem Status: Acute (6) Oxygen dependent: Patient is typically on 2 L of oxygen by nasal cannula at baseline, will continue to wean oxygen as tolerated Status: Acute (7) Paroxysmal A-fib: Paroxysmal atrial fibrillation, currently NSR Eliquis on hold due to acute anemia Patient is not on any other lazaro blocking agents. Status: Acute (8) DVT (deep venous thrombosis): History of DVT, in the setting of paraplegia Eliquis 2.5 mg twice a day is on hold due to acute anemia requiring transfusion Status: Acute (9) Multiple sclerosis: Baseline paraplegia Status: Acute (10) CVA (cerebral vascular accident): Baseline paraplegia Status: Acute Additional A&P Information Bacteremia: blood culture with group b strep, ECHO ordered and reviewed. Will hold off on FELICIA at this time and treat with penitentiary IV antibiotics due to underlying osteomyelitis also, will continue on current antibiotic regimen with repeat cultures pending Significant comorbidities with chronic worsening medical problems, do agree with admitting physician that hospice care would be appropriate, will continue close monitoring but if not clinical improvement will discuss further with patient and guardian. DVT prophylaxis: SCDs, no pharmacologic prophylaxis due to concern for acute anemia Diet: Continue with dysphagia diet and thickened liquids CODE STATUS: Allow natural , Do Not Resuscitate/DNI Attestations Medical Necessity Statement*: Requires further hospitalization due to bacteremia, sepsis and osteomyelitis Coding Level of Care Code Acute Apartment Community Manager for Chg Fwd Diagnoses Septic shock A41.9; R65.21 Anemia D64.9 Septic encephalopathy G93.41 Chronic osteomyelitis of sacrum M86.68 Chronic indwelling Ibrahim catheter Z96.0 Oxygen dependent Z99.81 Paroxysmal A-fib I48.0 DVT (deep venous thrombosis) I82.409 Multiple sclerosis G35 CVA (cerebral vascular accident) I63.9
[2019-08-01] MEDS: levothyroxine 50 mcg Tablet PO (08:50)
[2019-08-01] MEDS: FUROsemide 20 mg Tablet PO (08:51)
[2019-08-01] MEDS: duloxetine 30 mg Capsule PO (08:51)
[2019-08-01] MEDS: pantoprazole DR 40 mg Tablet PO (08:51)
[2019-08-01] MEDS: tamsulosin 0.4 mg Capsule PO ×2 (08:51→17:13)
[2019-08-01] MEDS: docusate sodium 100 mg Capsule PO ×2 (08:51→17:13)
[2019-08-01] MEDS: duloxetine 60 mg Capsule PO (08:51)
[2019-08-01] MEDS: baclofen 10 mg Tablet PO ×2 (08:51→17:13)
[2019-08-01] MEDS: ascorbic acid 500 mg Tablet 1000 MG PO ×2 (08:52→17:13)
[2019-08-01] MEDS: polyethylene glycol 3350 Pkt 17 gm PO (08:52)
[2019-08-01] MEDS: allopurinol 100 mg Tablet PO (08:52)
[2019-08-01] MEDS: artificial tears Op Soln 15 mL Btl 1 DROP EYE-BOTH ×4 (08:52→22:58)
[2019-08-01] MEDS: lactulose oral liq 20 gm/30 mL UDC PO ×2 (08:52→17:13)
[2019-08-01] MEDS: lurasidone 20 mg Tablet 40 MG PO (09:29)
--- NOTE | 2019-08-01 10:52 | PC.SOCIAL ---
IMM Update Pg 2 of IMM updated with patient. Initialed, dated, timed, and placed in chart. Copy provided to patient.
[2019-08-01] MEDS: oxyCODONE-APAP 5-325 mg Tablet 1 TAB PO ×2 (11:53→20:21)
--- NOTE | 2019-08-01 22:26 | PC.NURSE ---
Patient intermittently on BiPap between 1999 and 2199, patient states that she is uncomfortable with BiPap on. RT aware. Patient placed on 5LNC
[2019-08-02] VITALS (42 sets, daily range): BP systolic 76–138; BP diastolic 45–107; PULSE 72–101; RESP 6–45; TEMP 36.5–36.9; O2SAT 91–99
--- NOTE | 2019-08-02 00:01 | PC.NURSE ---
Patient on BiPap, resting comfortably. BiPap settings: IPAP 16, EPAP 8, Fi02 60%.
[2019-08-02] MEDS: sodium hypochlorite 0.25% Btl 473 mL 1 APPLIC TOPICAL ×2 (02:56→14:16)
--- NOTE | 2019-08-02 03:47 | PC.NURSE ---
BP 78/50, MAP 59, HR 72. Patient awakens easily to verbal stimuli and denies any discomfort. Dr Nazario updated by phone, orders received for 1L NS bolus. Orders repeated to physician and entered electonically.
[2019-08-02] MEDS: sodium chloride 0.9% 1,000 ML 500 ML IV (04:03)
--- NOTE | 2019-08-02 06:12 | PC.NURSE ---
BP 82/50, MAP 60 after 1L NS. HR 72. Patient awakens easily to verbal stimuli and is in no apparent distress. Dr Nazario updated by phone, orders received for 500 mL NS bolus, if MAP remains less than 65 after bolus resume levophed drip.
[2019-08-02] MEDS: sodium chloride 0.9% 500 ML IV (06:21)
[2019-08-02] MEDS: duloxetine 60 mg Capsule PO (07:34)
[2019-08-02] MEDS: allopurinol 100 mg Tablet PO ×2 (07:34→07:39)
[2019-08-02] MEDS: docusate sodium 100 mg Capsule PO ×2 (07:34→18:11)
[2019-08-02] MEDS: levothyroxine 50 mcg Tablet PO (07:35)
[2019-08-02] MEDS: pantoprazole DR 40 mg Tablet PO (07:35)
[2019-08-02] MEDS: tamsulosin 0.4 mg Capsule PO ×2 (07:35→18:11)
[2019-08-02] MEDS: baclofen 10 mg Tablet PO ×2 (07:35→18:11)
[2019-08-02] MEDS: polyethylene glycol 3350 Pkt 17 gm PO (07:36)
[2019-08-02] MEDS: ascorbic acid 500 mg Tablet 1000 MG PO ×2 (07:36→18:11)
[2019-08-02] MEDS: duloxetine 30 mg Capsule PO (07:36)
[2019-08-02] MEDS: lactulose oral liq 20 gm/30 mL UDC PO ×2 (07:36→18:08)
[2019-08-02] MEDS: artificial tears Op Soln 15 mL Btl 1 DROP EYE-BOTH ×4 (07:36→22:23)
[2019-08-02] MEDS: ipratropium-albuterol 3 mL Neb INHALATION ×3 (08:25→20:26)
[2019-08-02] MEDS: lurasidone 20 mg Tablet 40 MG PO (08:38)
--- NOTE | 2019-08-02 08:42 | PC.NURSE ---
CHEETAH DONE D/T DECREASED MAP/BP SVI DELTA -6.4%, NOT FLUID RESPONSIVE NOREPINEPHRINE STARTED.
--- NOTE | 2019-08-02 13:32 | PM.PN ---
Subjective Subjective: Interval history: Overnight patient had hypotensive episodes, did not appropriate respond to fluid boluses, was not fluid responsive with fluid challenge, Levophed was started, currently patient has no significant complaints, denies fevers, chills, nausea, vomiting I discussed with patient her current medical condition, she has sepsis and septic shock secondary to urinary tract infection, a group B strep strep bacteremia's possibly secondary to endocarditis, and acute on chronic sacral ulcer osteomyelitis I advised patient that currently her condition is stable but critical, the goals of cares were discussed, patient would like to proceed with all medical interventions, she is she wants intubation or mechanical ventilation, she wants chest compressions and CPR Vitals/I&O/Wt Last Vital Signs Temp 98.4 F 08/02/19 08:00 Pulse 89 08/02/19 08:37 Resp 24 H 08/02/19 08:37 BP 97/56 08/02/19 08:00 Pulse Ox 93 08/02/19 08:37 08/01/19 08/02/19 08/02/19 22:59 06:59 14:59 Intake Total 485.28 / 905.28 1350 / 2255.28 460 / 460 Output Total 1075 / 1075 350 / 1425 Balance -589.72 / -169.72 1000 / 830.28 460 / 460 Weight last 48 hrs Weight 90.809 kg Physical Exam Const: COMMON NORMALS: no apparent distress and oriented x3 HENMT: COMMON NORMALS: normocephalic HEAD & SCALP: normocephalic Neck/C-Spine: COMMON NORMALS: no JVD Resp: COMMON NORMALS: normal respiratory effort, no retractions, no use of accessory muscles and clear to auscultation bilaterally AUSCULTATION: clear to auscultation bilaterally Cardio: COMMON NORMALS: no JVD, regular rate, regular rhythm, S1 normal heart sound and S2 normal heart sound RATE: regular rate RHYTHM: regular rhythm HEART SOUNDS: S1 normal and S2 normal GI: COMMON NORMALS: normal to inspection, nondistended, normoactive bowel sounds, soft to palpation, non-tender, no hepatosplenomegaly, no masses and no bruits PALPATION: Yes soft and Yes no hepatosplenomegaly Extremity: COMMON NORMALS: normal capillary refill, no clubbing, cyanosis or edema, no calf tenderness and no pedal edema Neuro: COMMON NORMALS: oriented x3 Psych: COMMON NORMALS: mental status grossly normal Skin: NARRATIVE SKIN EXAM: Left thigh, 2 deep ulcers 1.) 1 x 1 x 2 cm deep, has good granulation tissue 2.) 1 x 1 x 2 cm deep Left side sacrum, deep ulcer, 2 x 2 x 3 cm deep Data : 08/01/19 04:19 08/01/19 04:19 Micro: Microbiology 07/29/19 18:47 Blood Culture - Final Blood Strep agalactiae - (group b) 07/29/19 18:46 Blood Culture - Final Blood Strep agalactiae - (group b) 07/31/19 12:05 Urine Culture - Preliminary Urine Catheterized 07/31/19 09:45 Blood Culture - Preliminary Blood NEGATIVE TO DATE 07/31/19 09:50 Blood Culture - Preliminary Blood NEGATIVE TO DATE A&P Assessment and plan (1) Septic shock: Has intermittently required pressors during the day, obtain consent for central line placement Currently on minimal Levophed acute cystitis as well as sacral ulcer with acute on chronic chronic osteomyelitis, group B strep bacteremia Group B strep bacteremia, likely source is urinary tract infection and bone infection, but endocarditis is a significant possibility Patient would not likely be a candidate for any type of surgical repair therefore will hold off on FELICIA at this time, transthoracic echocardiogram no gross vegetations, and continue with IV antibiotics that she will require for osteomyelitis and for bacteremia Follow-up with further culture results Continue vancomycin and Primaxin Patient would likely benefit from long-term acute care facility placement due to her chronic and complex wound care Status: Acute (2) Anemia: transfusion on 07/30/2019, hemoglobin remained stable No evidence of any active bleeding, will continue to monitor sacral ulcer closely Status: Acute (3) Septic encephalopathy: Awake and alert and appears to be at baseline Status: Acute (4) Chronic osteomyelitis of sacrum: Culture recently showing Proteus, ESBL, MRSA and enterococcus Continue vancomycin and imipenem Has 3 deep tissue ulcers, continue daily wet-to-dry dressing changes Status: Acute (5) Chronic indwelling Ibrahim catheter: With a history of ESBL E. coli UTI Remains on imipenem Status: Acute (6) Oxygen dependent: Patient is typically on 2 L of oxygen by nasal cannula at baseline, will continue to wean oxygen as tolerated Status: Acute (7) Paroxysmal A-fib: Paroxysmal atrial fibrillation, currently NSR Eliquis on hold due to acute anemia Patient is not on any other lazaro blocking agents. Status: Acute (8) DVT (deep venous thrombosis): History of DVT, in the setting of paraplegia Eliquis 2.5 mg twice a day is on hold due to acute anemia requiring transfusion Status: Acute (9) Multiple sclerosis: Baseline paraplegia Status: Acute (10) CVA (cerebral vascular accident): Baseline paraplegia Status: Acute Additional A&P Information Bacteremia: blood culture with group b strep, ECHO ordered and reviewed. Will hold off on FELICIA at this time and treat with usp IV antibiotics due to underlying osteomyelitis also, will continue on current antibiotic regimen with repeat cultures pending Significant comorbidities with chronic worsening medical problems, do agree with admitting physician that hospice care would be appropriate, will continue close monitoring but if not clinical improvement will discuss further with patient and guardian. DVT prophylaxis: SCDs, no pharmacologic prophylaxis due to concern for acute anemia Diet: Continue with dysphagia diet and thickened liquids CODE STATUS: Full code Attestations Medical Necessity Statement*: Patient requires continued hospitalization for septic shock secondary to UTI, group B strep bacteremia, sacral osteomyelitis Coding Level of Care Code Acute [facility] for [facility] Fwd Diagnoses Septic shock A41.9; R65.21 Anemia D64.9 Septic encephalopathy G93.41 Chronic osteomyelitis of sacrum M86.68 Chronic indwelling Ibrahim catheter Z96.0 Oxygen dependent Z99.81 Paroxysmal A-fib I48.0 DVT (deep venous thrombosis) I82.409 Multiple sclerosis G35 CVA (cerebral vascular accident) I63.9
[2019-08-02] MEDS: sodium chloride 0.9% 500 ML 999 ML IV (16:48)
[2019-08-02] MEDS: oxyCODONE-APAP 5-325 mg Tablet 1 TAB PO ×2 (16:51→23:29)
--- NOTE | 2019-08-02 17:58 | XRR_ITS ---
PROCEDURE INFORMATION: Exam: XR Chest, 1 View Exam date and time: 08/02/2019 6:30 PM Age: 68 years old Clinical indication: Device placement; Other: Central line placement; Additional info: Right central line placement TECHNIQUE: Imaging protocol: XR of the chest Views: 1 view. COMPARISON: CR XR chest 1V portable [id number] 07/30/2019 11:49 PM FINDINGS: Patient is rotated, limiting assessment. Tip of right central venous catheter projects over expected location of SVC when allowing for patient rotation. No convincing pneumothorax is demonstrated. There is moderate ill-defined opacification in each lung, may represent infiltrates, edema/congestion, or a combination thereof, appears increased bilaterally especially on left. There appear to be underlying pleural effusions. Prominent ill-defined dense opacification at left lung base is most compatible with atelectasis/infiltrate, appears increased from prior study. There is scattered pulmonary scarring bilaterally. Visualized cardiac silhouette size appears within normal limits. XR/XR chest 1V portable [id number] IMPRESSION: Tip of right central venous catheter projects over expected location of SVC when allowing for patient rotation. There is moderate ill-defined opacification in each lung, may represent infiltrates, edema/congestion, or a combination thereof, appears increased bilaterally especially on left. There appear to be underlying pleural effusions. Prominent ill-defined dense opacification at left lung base is most compatible with atelectasis/infiltrate, appears increased from prior study.
--- NOTE | 2019-08-02 17:58 | PM.EVENT ---
Event Note Event Note: Central line placement: Central line placement was discussed with the patient, risk and benefits discussed, patient voiced understanding, all questions answered, patient agreed to Dr. Santizo helped with central line placement, central line placement central line placement, right internal jugular vein approach, the skin was prepared via ChloraPrep, then using ultrasound machine the right internal jugular vein and artery were identified, the right internal jugular vein was collapsible, nonpulsatile. Then patient was appropriately prepped under sterile fashion, gowns and gloves facemasks had dressings were worn. Ultrasound probe was prepared with cover, all central line kit was prepared for placement, all lines were flushed. Surgical site was again ChloraPrep, using ultrasound with probe cover, right internal jugular vein nonpulsatile collapsible was reidentified, in the area 2% lidocaine was superficially injected. Then using initial needle placement, had an angle of 85 degrees, under ultrasound guidance, needle is advanced towards right internal jugular vein breaking the skin, once in the vessel, flashback was noted, dark nonpulsatile blood. Needle container was removed, guidewire was advanced, once advanced, needle was removed over guidewire, then plastic central line was guided over guidewire, to the level of the skin, a sharp needle blade was used to make a 1 cm incision in the skin, plastic central line was advanced through the incision approximately 5 mm, then plastic plastic central line was removed, then central line tubing was advanced over the guidewire, guidewire was pulled through the central line tubing such that it was seen on the other side, then tubing was advanced through the skin to the level 16, area was held, then guidewire was pulled through, then plastic holders were placed over central line tubing, the central line and plastic tubing were sutured to the skin 3 sutures were used, then area was appropriately cleaned with ChloraPrep, then see-through bandage was placed over site. Patient tolerated this procedure well, chest x-ray was ordered to rule out pneumothorax.
--- NOTE | 2019-08-02 22:30 | PC.NURSE ---
Patient placed on BiPap by RT, Sp02 93-94%. Settings IPAP 16, EPAP 8, Fi02 40%. Patient resting comfortably, in no apparent distress.
--- NOTE | 2019-08-02 22:40 | PC.NURSE ---
Dr Nazario notified that Percocet 5/325 order has been discontinued. Physician states to resume same order.
[2019-08-03] VITALS (20 sets, daily range): BP systolic 81–125; BP diastolic 39–72; PULSE 73–88; RESP 6–31; TEMP 36.6–37.1; O2SAT 88–98
[2019-08-03] MEDS: sodium hypochlorite 0.25% Btl 473 mL 1 APPLIC TOPICAL (02:59)
[2019-08-03 04:57] LABS: Basophils % 0.4 %; Eosinophils # 0.2 10^3/uL (0.0-0.8); Eosinophils % 1.8 %; Hematocrit 24.1 % (37.0-47.0); Lymphocytes # 2.1 10^3/uL (0.8-4.8); Lymphocytes % 24.9 %; Mean Corpuscular Hemoglobin 25.6 pg (28.0-34.0); Mean Corpuscular Volume 88.3 fL (81-99); Mean Platelet Volume 9.8 fL (7.4-10.4); Monocytes # 0.6 10^3/uL (0.2-0.9); Monocytes % 7.6 %; Neutrophils # 5.5 10^3/uL (1.8-7.7); Neutrophils % 64.7 %; Nucleated Red Blood Cells % 0 %; Platelet Count 415 10^3/cmm (130-400); Red Blood Count 2.73 10^6/uL (4.1-5.3); Red Cell Distribution Width 18.8 % (12.1-15.1); White Blood Count 8.5 10^3/uL (4.0-10.0)
[2019-08-03 05:33] LABS: Alanine Aminotransferase 12 U/L (0-33); Albumin Level 1.6 g/dL (3.5-5.2); Alkaline Phosphatase 99 IU/L (35-105); Anion Gap 11.6 (5-19); Aspartate Amino Transferase 14 U/L (0-32); Blood Urea Nitrogen 13 mg/dL (8-23); Calcium 8.4 mg/dL (8.5-10.5); Carbon Dioxide 26 mmol/L (22-29); Chloride 107 mmol/L (98-107); Globulin 4.4 g/dL (1.3-4.6); Glomerular Filtration Rate 123.4 mL/min (90-130); Glucose 82 mg/dL (65-115); Magnesium 2.1 mg/dL (1.7-2.3); Osmolality Calculated 287 mOsm/kg (285-295); Potassium 3.6 mmol/L (3.5-5.1); Sodium 141 mmol/L (136-145); Total Bilirubin 0.2 mg/dL (0.15-1.2)
[2019-08-03 05:58] LABS: Slide Review Slide Review Perform
--- NOTE | 2019-08-03 09:45 | PC.NURSE ---
SPOKE WITH GENNY WHITESIDE, [facility] PUBLIC ICE SCRAPER [phone] IN REGARDS TO AJIT REQUESTING TO NO LONGER HAVE TREATMENT & LET NATURE TAKE IT COURSE. GUARDIAN STATES THAT SHE NEEDS DOCUMENTATION FROM PHYSICIAN IN REGARDS TO PT STATUS FAXED TO HER @ [phone]. DR TREJO NOTIFIED & WILL DOCUMENT NOTE.
[2019-08-03] MEDS: ipratropium-albuterol 3 mL Neb INHALATION ×2 (10:09→14:49)
--- NOTE | 2019-08-03 10:32 | PC.NURSE ---
[facility] PT TOLD DR THAT SHE NO LONGER WANTS TO HAVE TREATMENT, JUST LET ME GO . WANTS TO BE KEPT COMFORTABLE & PAIN FREE. PT LOOKS TIRED & EXHAUSTED. WOULD LIKE TO HAVE HER FAMILY NOTIFIED. SUSTAINABLE COMMUNITIES DESIGNER AT BEDSIDE TO ASSIST.
--- NOTE | 2019-08-03 10:42 | PM.DCS ---
Discharge Providers Date of Admission: 07/29/19 20:17 Date of Discharge: August 03, 2019 Attending Provider at Admission: Jewels Nazario MD Attending Provider at Discharge: Marshall Parry MD Primary Care Provider: Tommie Feliz Jr, MD Diagnoses at Discharge Discharge Diagnosis (1) Septic shock: Status: Acute (2) Anemia: Status: Acute (3) Septic encephalopathy: Status: Acute (4) Chronic osteomyelitis of sacrum: Status: Acute (5) Chronic indwelling Ibrahim catheter: Status: Acute (6) Oxygen dependent: Status: Acute (7) Paroxysmal A-fib: Status: Acute (8) DVT (deep venous thrombosis): Status: Acute (9) Multiple sclerosis: Status: Acute (10) CVA (cerebral vascular accident): Status: Acute Reason for Visit Reason for Visit: Reason For Visit: FEVER; AMS Hospital Course Discharge Summary: This is a 68-year-old female with a past medical history of severe multiple sclerosis, bedbound, chronic sacral decubitus ulcers, chronic indwelling Ibrahim catheter, chronically ill, history of ESBL UTIs, history of atrial fibrillation, oxygen dependent 2 L, history of DVT, history of CVA, baseline left hemiparesis secondary to CVA, lower extremity extension contractures, history of anemia, who has had multiple admissions in the past for sepsis secondary to UTI and sacral ulcers. Patient had a recent admission for sacral acute on chronic osteomyelitis status post debridement. Who presented to [facility] on 07/29/2019 due to concerns for confusion, fevers, low blood pressures. 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 Patient was admitted to the intensive care unit, she was placed on broad-spectrum antibiotics, she had a central line placed, she was placed on Levophed, received IV hydration. Unfortunately patient continued to have episodes of hypotension despite adequate fluid therapy, she was not fluid responsive, thus she remained on Levophed for blood pressure support. Patient's mentation returned back to baseline, she was alert oriented x3, answers questions appropriately, she knew her daughter, knew her sister, she understood her current medical condition, understood the risk and benefits of medical interventions, she voiced understanding. Patient has a history of severe multiple sclerosis, has left hemiparesis from her CVA, is bedbound, has a chronic Ibrahim, is chronically ill, and she will require chronic antibiotic therapy, placement to select for management of her ulcers, she is a high risk of readmissions, high risk of morbidity and mortality in the near future from recurrent infections and complications from infections. I had a discussion with patient on 08/03/2019 in the morning about her goals of care. Patient stated that she does not want to do this anymore, she refused her morning meds, I discussed with her continuing medical interventions versus pursuing hospice and comfort care. I discussed with her continuing medical interventions would include placement to select for chronic management of her sacral ulcers, chronic antibiotic therapy therapy for at least 6 weeks for her osteomyelitis and her endocarditis, would require extensive doctor visits to manage her infections and her wounds, and if that is what she wanted to pursue that we were here for her and that we would help her in any way that we could. The other option would be comfort care and hospice, would entail noninvasive interventions, treating pain, treating suffering, to focus on her quality of life. I discussed the risks and benefits of each choice, patient voiced understanding, all questions answered, patient wanted to proceed to hospice and comfort care. After discussion of her CODE STATUS, patient wanted to be DNR/DNI. Patient wanted her sister to be notified, wanted her daughter to be notified, and her son to be notified. Although she said that she only wanted her sister to be at bedside as her daughter could not emotionally take what what was going on. For patient's acute on chronic sacral cellulitis and osteomyelitis, patient received IV antibiotics, patient's 3 significant sacral decubitus ulcer sites had daily dressing changes, repositioning, unfortunately these are worsening, and are going to be chronic in nature. Patient's tissue cultures in the past have grown ESBL E. coli, MRSA, Proteus Mirabella's, enterococcus, Pseudomonas. She received broad-spectrum antibiotic treatment. Unfortunately patient is not an ideal surgical candidate nor does she want surgical intervention. Unfortunately patient's sacral decubitus ulcers will be chronic in nature. There were plans on sending patient to [facility] for management of patient's ulcers, but patient goals of care changed, she wanted to transition to comfort care and hospice. Patient was transitioned to hospice and comfort care, patient was discharged on oral antibiotics although not recommended for osteomyelitis. Patient voiced understanding, all questions answered, agreed to proceed. For patient's urinary tract infection, she received broad-spectrum antibiotic coverage, urine cultures so far have been unremarkable, but does have a history of ESBL E. coli UTI. Patient was treated for presumed ESBL E. coli UTI, patient want to transition to hospice care, she was discharged on oral antibiotics. Patient's blood cultures were positive for group B strep, there were concerns that the likely source of this bacteremia was endocarditis, patient had a transthoracic echocardiogram which was grossly negative for any vegetation on her cardiac valves. In discussion with the patient, in order to clearly delineate if she had endocarditis we would need to perform a transesophageal echocardiogram. Transesophageal echocardiogram could clearly delineate if she were to have endocarditis or not, however patient would not be a good surgical candidate for surgical intervention, and we would have to treat her medically with at least 6 weeks of IV antibiotics. Performing a transesophageal cardiogram would carry risks, risk of anesthesia, risks of perforation, risk of bleeding, risk of significant morbidity and mortality, as was in septic shock from her multiple sources of infections, I clinically felt that the risks of performing the transesophageal echocardiogram would outweigh the benefit. After discussion the risk and benefits of performing transesophageal echocardiogram, patient voiced that she did not want to have the procedure done, agreed for 6 weeks of IV antibiotic treatment. As patient continued to have septic shock related to multiple sources of infections, she was on broad-spectrum antibiotics, she was on Levophed, patient was clinically stable but critical. After discussion the risks and benefits, patient wanted to be transitioned to hospice and comfort care. patient will be discharged on oral antibiotics, although not recommended for bacteremia and endocarditis and osteomyelitis and significant UTI, this would be the next best course of action as she is on hospice. During admission patient was found to to have acute on chronic anemia, her hemoglobin got as low as 6.1, her anticoagulation Eliquis for atrial fibrillation was held on admission, she received a unit of blood, her hemoglobin increased to between 8 and 9. For patient's anemia, she was put on Protonix for possible slow GI bleed. Likely patient source of anemia was multifactorial related to patient's sepsis, chronic inflammatory state related to her infections, and a slow GI bleed. However on 08/03/2019 patient's hemoglobin did decrease to 7, patient refused all blood products, wanted to transition to hospice and comfort care, after discussion risks and benefits, patient voiced understanding, transition to hospice and comfort care. Physical Exam Const: COMMON NORMALS: no apparent distress and oriented x3 GENERAL APPEARANCE: ill appearing Neck/C-Spine: COMMON NORMALS: no JVD Resp: COMMON NORMALS: no retractions, no use of accessory muscles and clear to auscultation bilaterally EFFORT & INSPECTION: Yes tachypneic AUSCULTATION: clear to auscultation bilaterally Cardio: COMMON NORMALS: no JVD, regular rate, regular rhythm, S1 normal heart sound and S2 normal heart sound RATE: regular rate RHYTHM: regular rhythm HEART SOUNDS: S1 normal and S2 normal GI: COMMON NORMALS: normal to inspection, nondistended, normoactive bowel sounds, soft to palpation, non-tender and no hepatosplenomegaly PALPATION: Yes soft and Yes no hepatosplenomegaly Extremity: NARRATIVE EXTREMITY EXAM: pedal edma Neuro: COMMON NORMALS: oriented x3 Psych: COMMON NORMALS: mental status grossly normal and thought process normal THOUGHT PROCESS: normal thought process Discharge Data Data Completed and Pending: Completed Studies During Hospitalization Category Date Time Status CT abdomen pelvis w con* [id number] Rout ine Cat Scan 07/29/19 20:48 Completed XR chest 1V boo ble [id number] Stat Exams 07/30/19 23:46 Completed XR chest 1V boo ble [id number] Stat Exams 08/02/19 17:58 Completed XR chest 1V boo ble [id number] Urgent Exams 07/29/19 18:29 Completed CV echo complete* [id number] Routine Ultrasound 07/31/19 09:06 Completed US gall bladder 7 [id number] Routine Ultrasound 07/30/19 00:19 Completed Pending at discharge Category Date Time Status Blood Culture Sta t Lab 07/31/19 09:45 Results Complete Blood Co unt w/Auto AM LABS Lab 08/04/19 04:00 Ordered Complete Blood Co unt w/Auto AM LABS Lab 08/05/19 04:00 Ordered Comprehensive Met abolic Panel AM LA BS Lab 08/04/19 04:00 Ordered Comprehensive Met abolic Panel AM LA BS Lab 08/05/19 04:00 Ordered Magnesium AM LABS Lab 08/04/19 04:00 Ordered Magnesium AM LABS Lab 08/05/19 04:00 Ordered Phosphorus AM LAB S Lab 08/04/19 04:00 Ordered Phosphorus AM LAB S Lab 08/05/19 04:00 Ordered Procalcitonin AM LABS Lab 08/04/19 04:00 Ordered Procalcitonin AM LABS Lab 08/05/19 04:00 Ordered Labs from last 24 hours 08/03/19 08/03/19 08/03/19 04:41 04:41 04:41 WBC 8.5 RBC 2.73 L Hgb 7.0 L Hct 24.1 L MCV 88.3 MCH 25.6 L MCHC 29.0 L RDW 18.8 H Plt Count 415 H MPV 9.8 Neut % (Auto) 64.7 Lymph % (Auto) 24.9 [place] % (Auto) 7.6 Eos % (Auto) 1.8 Baso % (Auto) 0.4 Neut # (Auto) 5.5 Lymph # (Auto) 2.1 [place] # (Auto) 0.6 Eos # (Auto) 0.2 Baso # (Auto) 0.0 Nucleated RBC % (a uto) 0 Nucleated RBCs # 0.0 Sodium 141 Potassium 3.6 Chloride 107 Carbon Dioxide 26 Anion Gap 11.6 BUN 13 Creatinine 0.5 GFR Calculation 123.4 Glucose 82 Calculated Osmolal ity 287 Calcium 8.4 L Phosphorus 4.0 Magnesium 2.1 Total Bilirubin 0.2 AST 14 ALT 12 Alkaline Phosphata se 99 Total Protein 6.0 L Albumin 1.6 L Globulin 4.4 Procalcitonin 0.20 Vitals: Last Vital Signs Temp 98.6 F 08/03/19 04:00 Pulse 86 08/03/19 10:07 Resp 24 H 08/03/19 10:07 BP 125/72 08/03/19 06:00 Pulse Ox 93 08/03/19 10:07 Discharge Plan Discharge Patient Disposition: Hospice - Medical Facility Condition: Serious Prescriptions: New amoxicillin-pot clavulanate [Augmentin] 875-125 mg tablet 1 tab PO BID 30 Days Qty: 60 RF: 0 sulfamethoxazole-trimethoprim [Bactrim DS] 800-160 mg tablet 1 tab PO Q12H 28 Days Qty: 56 RF: 0 Continued ondansetron HCl [Zofran] 4 mg Tablet 4 mg PO Q4H PRN (Reason: Nausea) RF: 0 baclofen 10 mg Tablet 10 mg PO BID RF: 0 levothyroxine [Synthroid] 50 mcg Tablet 50 mcg PO DAILY RF: 0 furosemide [Lasix] 20 mg Tablet 20 mg PO DAILY RF: 0 duloxetine [Cymbalta] 60 mg Capsule,Delayed Release(Dr/Ec) 60 mg PO DAILY RF: 0 Latuda 40 mg Tablet 40 mg PO DAILY RF: 0 methenamine hippurate 1 gram Tablet 1 g PO BID RF: 0 mirtazapine [Remeron] 15 mg Tablet 7.5 mg PO DAILY RF: 0 duloxetine [Cymbalta] 30 mg Capsule,Delayed Release(Dr/Ec) 30 mg PO DAILY RF: 0 Percocet 5-325 mg Tablet 1 tab PO Q4H PRN (Reason: Pain (Scale Score 4-6)) RF: 0 Discontinued pediatric multivitamin [Gummi Bear Multivitamin] Tablet,Chewable 1 tab PO DAILY RF: 0 tamsulosin [Flomax] 0.4 mg Capsule 0.4 mg PO BID RF: 0 bisacodyl [Dulcolax (bisacodyl)] 10 mg Suppository 10 mg NV DAILY PRN (Reason: Constipation) RF: 0 simvastatin 20 mg Tablet 20 mg PO QPM RF: 0 docusate sodium [Colace] 100 mg Capsule 100 mg PO BID RF: 0 artificial tears(hypromellose) 0.3 % Drops 1 drp OPHTHALMIC (EYE) QID RF: 0 Culturelle 10 billion cell Capsule 1 cap PO DAILY RF: 0 sodium chloride [Saline Mist] 0.65 % Aerosol,[place] 1 spray INTRANASAL QID RF: 0 ascorbic acid (vitamin C) [Vitamin C] 1,000 mg Tablet 1,000 mg PO BID RF: 0 albuterol sulfate 2.5 mg /3 mL (0.083 %) Solution For Nebulization 2.5 mg INHALATION QID PRN (Reason: Shortness Of Breath) RF: 0 nitroglycerin [Nitromist] 400 mcg/spray Aerosol,[place] 1 spray translingual PRN RF: 0 allopurinol 100 mg Tablet 100 mg PO DAILY RF: 0 magnesium hydroxide [Milk of Magnesia] 400 mg/5 mL Suspension 30 ml PO DAILY PRN (Reason: Constipation) RF: 0 pantoprazole [Protonix] 40 mg Tablet,Delayed Release (Dr/Ec) 40 mg PO DAILY RF: 0 sodium chloride 0.9 % (flush) [Normal Saline Flush] Syringe See Rx Instructions .ROUTE .COMPLEX RF: 0 Dakin's Solution 0.125 % Solution See Rx Instructions .ROUTE .COMPLEX RF: 0 Eucerin Cream 1 applic TOPICAL BID PRN (Reason: Dry Skin) RF: 0 Prostat Liq 15 ml PO TID RF: 0 polyethylene glycol 3350 [Miralax] 17 gram Powder In Packet 17 g PO DAILY RF: 0 lactulose 20 gram/30 mL Solution 20 g PO BID RF: 0 aspirin 81 mg Tablet,Delayed Release (Dr/Ec) 81 mg PO DAILY RF: 0 Percocet 5-325 mg Tablet 1 tab PO BID RF: 0 Eliquis 2.5 mg Tablet 2.5 mg PO BID RF: 0 Discharge Orders: Discharge Order (Routine); Ordered 08/03/19 Ordered By: Marshall Parry Referrals: Tommie Fleiz Jr, MD [Primary Care Provider] - Discharge Diet: Regular Discharge Activity: Resume usual activity Discharge Attestations Time Spent in Discharge Care*: less than 30 min Quality Metrics Clinical Quality Measures During this hospital stay, did patient experience: None Coding Level of Care Code Acute Wood Form Builder for g Fwd Diagnoses Septic shock A41.9; R65.21 Anemia D64.9 Septic encephalopathy G93.41 Chronic osteomyelitis of sacrum M86.68 Chronic indwelling Ibrahim catheter Z96.0 Oxygen dependent Z99.81 Paroxysmal A-fib I48.0 DVT (deep venous thrombosis) I82.409 Multiple sclerosis G35 CVA (cerebral vascular accident) I63.9
[2019-08-03] MEDS: morphine 4 mg/mL SDV 1 mL 2 MG IVP ×2 (11:09→15:28)
[2019-08-03] MEDS: LORazepam 2 mg/mL INJ 1 mL 1 MG IVP ×2 (11:10→15:30)
--- NOTE | 2019-08-03 13:36 | PC.NURSE ---
REPORT CALLED TO KARSON AT [facility] [phone]. SHE STATES THAT THEY DON'T NEED THE CENTRAL LINE FOR COMFORT CARE. PT SON CALLED & ALLOWED TO SPEAK TO HIS MOM. HE WAS VERY TEARFUL.
--- NOTE | 2019-08-03 13:52 | PC.NURSE ---
PT HAS REFUSED REGULAR SCHEDULED MEDICATIONS TODAY. DR & GUARDIAN AWARE. DOES NOT WANT TO BE MOVED AT PRESENT.
--- NOTE | 2019-08-03 15:59 | PC.NURSE ---
DISCHARGE TO [facility] FOR COMFORT CARE. [facility] HERE TO TRANSPORT. NOTIFIED [facility] STAFF
== END 2019-08-03 15:50 | disposition hospice, inpatient (51) | DRG 871 ==
LOC: ER 20:19 → ICU 20:37
PROVIDERS: Family Medicine; Admitting Provider Internal Medicine; Emergency Provider Emergency Medicine; Family Provider Family Medicine; PCP Family Medicine; Visit Provider Family Medicine
DX: A41.9 Sepsis, unspecified organism (principal); S72.001A Fracture of unspecified part of neck of right femur, initial encounter for closed fracture; R65.21 Severe sepsis with septic shock; G93.41 Metabolic encephalopathy; M86.08 Acute hematogenous osteomyelitis, other sites; N39.0 Urinary tract infection, site not specified; I82.409 Acute embolism and thrombosis of unspecified deep veins of unspecified lower extremity; I69.354 Hemiplegia and hemiparesis following cerebral infarction affecting left non-dominant side; Z66 Do not resuscitate; X58.XXXA Exposure to other specified factors, initial encounter; Z51.5 Encounter for palliative care; D64.9 Anemia, unspecified; Z96.0 Presence of urogenital implants; L89.159 Pressure ulcer of sacral region, unspecified stage; I48.0 Paroxysmal atrial fibrillation; G35 Multiple sclerosis; Z74.01 Bed confinement status; Z99.81 Dependence on supplemental oxygen; Z86.718 Personal history of other venous thrombosis and embolism; Z79.01 Long term (current) use of anticoagulants; F03.90 Unspecified dementia, unspecified severity, without behavioral disturbance, psychotic disturbance, mood disturbance, and anxiety; F32.9 Major depressive disorder, single episode, unspecified; E66.01 Morbid (severe) obesity due to excess calories; Z68.30 Body mass index [BMI] 30.0-30.9, adult; E11.9 Type 2 diabetes mellitus without complications; Z87.891 Personal history of nicotine dependence
CPT/HCPCS: 12345; 36415; 36430; 36592; 71045; 74177; 76705; 80048; 80053; 80202; 81001; 83605; 83690; 83735; 84100; 84145; 85025; 85610; 86850; 86870; 86900; 86920; 87040; 87077; 87086; 87186; 87205; 93005; 93306; 94640; 94660; 96375; 99283; J0743; J1940; J2060; J2270; J2543; J3370; J7030; J7040; J7050; P9016; Q9967

== ENCOUNTER 2019-12-15 05:57 | Emergency (ER) | payer MEDICARE, MEDICAID, SELFPAY ==
[2019-12-15] VITALS (9 sets, daily range): BP systolic 96–104; BP diastolic 43–54; PULSE 75–88; RESP 16–20; TEMP 36–37.2; O2SAT 96–100; BMI 28.3
--- NOTE | 2019-12-15 06:11 | CTR_ITS ---
PROCEDURE INFORMATION: Exam: CT Cervical Spine Without Contrast Exam date and time: 12/15/2019 6:25 AM Age: 69 years old Clinical indication: Injury or trauma; Fall; Initial encounter; Blunt trauma; Additional info: Fall, pain TECHNIQUE: Imaging protocol: Computed tomography images of the cervical spine without contrast. Radiation optimization: All CT scans at this facility use at least one of these dose optimization techniques: automated exposure control; mA and/or kV adjustment per patient size (includes targeted exams where dose is matched to clinical indication); or iterative reconstruction. COMPARISON: No relevant prior studies available. RADIATION DOSE METRICS: Total DLP (mGy-cm): 736.12 FINDINGS: Vertebrae: No acute fracture. Discs/Spinal canal/Neural foramina: Multilevel degenerative changes. No critical central canal stenosis. Soft tissues: Unremarkable. Lungs: Large left pleural effusion. CT/CT cervical spin wo con* [id number] IMPRESSION: 1. No acute cervical fracture. 2. Large left pleural effusion. Radiation Dose CTDIVOL = (mGy): DLP = 736.12 (mGy-cm)
--- NOTE | 2019-12-15 06:11 | CTR_ITS ---
PROCEDURE INFORMATION: Exam: CT Head Without Contrast Exam date and time: 12/15/2019 6:25 AM Age: 69 years old Clinical indication: Injury or trauma; Fall; Additional info: Fall, pain TECHNIQUE: Imaging protocol: Computed tomography of the head without contrast. Radiation optimization: All CT scans at this facility use at least one of these dose optimization techniques: automated exposure control; mA and/or kV adjustment per patient size (includes targeted exams where dose is matched to clinical indication); or iterative reconstruction. COMPARISON: No relevant prior studies available. RADIATION DOSE METRICS: Total DLP (mGy-cm): 824.26 FINDINGS: Brain: Indeterminate focal area of decreased attenuation in the right frontal periventricular region. Otherwise roman-white matter differentiation is preserved.No hemorrhage. No edema, mass effect or midline shift. Periventricular and deep white matter hypodensities compatible with chronic microvascular ischemic changes. Ventricles: No ventriculomegaly. Bones/joints: No acute fracture. Paranasal sinuses: Visualized sinuses are unremarkable. No fluid levels. Mastoid air cells: No mastoid effusion. Soft tissues: Unremarkable. CT/CT head wo con* [id number] IMPRESSION: Indeterminate focal area of decreased attenuation in the right frontal periventricular region. Otherwise roman-white matter differentiation is preserved. If there is clinical concern for acute stroke, correlation with MRI may be helpful. Radiation Dose CTDIVOL = (mGy): DLP = 824.26 (mGy-cm)
--- NOTE | 2019-12-15 06:11 | XRR_ITS ---
PROCEDURE INFORMATION: Exam: XR Left Humerus Exam date and time: 12/15/2019 6:14 AM Age: 69 years old Clinical indication: Injury or trauma; Fall; Initial encounter; Blunt trauma (contusions or hematomas); Arm, upper; Left; Additional info: Fall, pain TECHNIQUE: Imaging protocol: XR Left humerus Views: 2 or more views. COMPARISON: No relevant prior studies available. FINDINGS: Bones/joints: Osteopenia and degenerative change. Acute fracture involving the mid left humeral diaphysis with mild medial displacement and marked lateral angulation of the major distal fracture fragment. Pleural space: Left pleural thickening and/or effusion. Soft tissues: Soft tissue prominence. XR/[place] [id number] IMPRESSION: Acute fracture involving the mid left humeral diaphysis with mild medial displacement and marked lateral angulation of the major distal fracture fragment.
--- NOTE | 2019-12-15 06:14 | W.ED.FALL ---
HPI - Fall General: Chief Complaint: Fall Stated Complaint: fall Time Seen by Provider: 12/15/19 05:58 History of Present Illness: HPI Narrative: This patient is a 69-year-old female presenting after a fall at the senior care. She is a resident at [facility] and there have been a number of cases of COVID there but she had a test on that was negative. She has not had any symptoms related to COVID. She has a history of multiple sclerosis and schizophrenia. She is not able to tell me what caused her to fall. She was found on the ground with her left arm over the middle base of a bedside table. She believes that she broke her arm. She also complains of pain in her head. She denies any other pain or injury. complaint: fall Onset (ago): unknown Fall from: out of bed Fall witnessed: no Place fall occurred: senior care[facility] Loss of consciousness: Unsure Prolonged down time: unclear Context: other (Does not ambulate due to her multiple sclerosis and had been in bed prior to the fall.) Associated symptoms-after fall: Reports difficulty walking (Unable to walk due to multiple sclerosis. Wheelchair and bedbound); Denies chest pain Review of Systems Const: Denies: fever(s) Card: Denies: chest pain Resp: Denies: dyspnea or non-productive cough Neuro: Reports: difficulty walking (Unable to walk due to multiple sclerosis. Wheelchair and bedbound) [facility] ED PFSH: Medical History CVA (cerebral vascular accident) Dementia Depression DVT (deep venous thrombosis) History of ESBL E. coli infection Morbid obesity Multiple sclerosis Nephrolithiasis Non-insulin dependent type 2 diabetes mellitus Oxygen dependent Paroxysmal A-fib Ureteral stenosis, left Surgical History S/P debridement 06/14 Post debridement hemorrhage which was controlled conservatively Social History Smoking and tobacco status: former smoker Alcohol intake: never Adopted: No Caregiver/support person: No Housing: Assisted Living Facility History of recent travel: No Current gender identity: Female Physical Exam Const: COMMON NORMALS: patient oriented x3 and alert GENERAL APPEARANCE: cooperative, comfortable and anxious NUTRITIONAL APPEARANCE: overweight ORIENTATION/CONSCIOUSNESS: Yes awake, Yes oriented to person, Yes oriented to place and Yes oriented to time HENMT: HEAD & SCALP: normal to inspection FACE & SINUS: normal facial exam Eye: GENERAL EYE: appearance normal, both eyes and all related structures Neck/C-Spine: COMMON NORMALS: supple, no meningeal signs and no JVD Chest: COMMONS NORMALS: normal inspection of the chest Resp: COMMON NORMALS: normal respiratory effort, No use of accessory muscles and clear to auscultation bilaterally AUSCULTATION: clear to auscultation bilaterally Cardio: COMMON NORMALS: no JVD, regular rate, regular rhythm and No murmurs present (Cardio) RATE: regular rate RHYTHM: regular rhythm GI: COMMON NORMALS: Normal to inspection, nondistended, normoactive bowel sounds present, Soft to palpation and non-tender INSPECTION: Yes normal to inspection AUSCULTATION: Yes normoactive bowel sounds PALPATION: Yes Soft to palpation Back/Pelvis: COMMON NORMALS: thoracic and lumbar spine normal to inspection Extremity: GENERAL: Yes normal exam except as noted LEFT UPPER EXTREMITY: Yes upper arm (Tender along the entire course of the humerus. There is redness on the distal humerus. 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 quadriparesis due to multiple sclerosis at baseline.) COORDINATION: other (Near full quadriparesis due to multiple sclerosis at baseline.) Psych: COMMON NORMALS: mental status grossly normal, cooperative and normal affect Skin: COMMON NORMALS: no rashes or lesions noted and turgor normal GENERAL SKIN EXAM: no rashes or lesions noted and turgor normal Course Vital Signs: Vital signs: Vital Signs Temperature 97.7 F 12/15/19 09:37 Pulse Rate 80 12/15/19 09:37 Respiratory Rate 18 12/15/19 09:37 Blood Pressure 96/53 12/15/19 09:37 Pulse Oximetry 97 12/15/19 09:37 MDM - Fall Lab Data: Labs: Lab Results 12/15/19 12/15/19 12/15/19 Range/Units 06:12 06:37 06:41 WBC 16.5 H (4.0-10.0) 10^3/ uL RBC 4.25 (4.1-5.3) 10^6/u L Hgb 9.5 L (11.5-15.3) g/dL Hct 33.8 L (37.0-47.0) % MCV 79.5 L (81-99) fL MCH 22.4 L (28.0-34.0) pg MCHC 28.1 L (30.0-36.0) g/dL RDW 19.6 H (12.1-15.1) % Plt Count 678 H (130-400) 10^3/c mm MPV 9.8 (7.4-10.4) fL Neut % (Auto) 87.2 % Lymph % (Auto) 7.7 % Iron % (Auto) 3.8 % Eos % (Auto) 0.2 % Baso % (Auto) 0.4 % Neut # (Auto) 14.34 H (1.8-7.7) 10^3/u L Lymph # (Auto) 1.3 (0.8-4.8) 10^3/u L Iron # (Auto) 0.6 (0.2-0.9) 10^3/u L Eos # (Auto) 0.0 (0.0-0.8) 10^3/u L Baso # (Auto) 0.1 (0.0-0.1) 10^3/u L Nucleated RBC % (a uto) 0 % Nucleated RBCs # 0.0 /100WBC Sodium 141 (136-145) mmol/L Potassium 4.6 (3.5-5.1) mmol/L Chloride 99 (98-107) mmol/L Carbon Dioxide 22 (22-29) mmol/L Anion Gap 24.6 H (5-19) BUN 18 (8-23) mg/dL Creatinine 0.6 (0.5-0.9) mg/dL GFR Calculation 99.7 (90-130) mL/min Glucose 134 H (65-115) mg/dL POC Glucose 133 (70-110) mg/dL Calculated Osmolal ity 296 H (285-295) mOsm/k g Calcium 8.6 (8.5-10.5) mg/dL Total Bilirubin 0.2 (0.15-1.2) mg/dL AST 15 (0-32) U/L ALT 10 (0-33) U/L Alkaline Phosphata se 171 H (35-105) IU/L Creatine Kinase 70 (26-192) U/L Total Protein 6.7 (6.6-8.7) g/dL Albumin 2.3 L (3.5-5.2) g/dL Globulin 4.4 (1.3-4.6) g/dL Discharge Plan Discharge Patient Disposition: er [facility] Clinical Impression: Multiple sclerosis Fracture, humerus closed, shaft Qualifiers: Encounter type: initial encounter Fracture morphology: unspecified fracture morphology Laterality: left Qualified Code(s): S42.302A - Unspecified fracture of shaft of humerus, left arm, initial encounter for closed fracture Condition: Stable Discharge Orders: Discharge Order (Routine); Ordered 12/15/19 Ordered By: Grisel Marcus Referrals: Kellee Lopez MD [Physician] - 4-7 days Tommie Feliz Jr, MD [Primary Care Provider] - Discharge Diet: Usual diet Discharge Activity: Resume usual activity Patient Instructions: Arm Fracture in Adults (ED) Activity Restrictions/Additional Instructions: Use a splint or shoulder abduction immobilizer. Use pain medication as previously prescribed. Watch for signs of neurovascular compromise. Follow-up with Dr. Lopez for further management. Discharge Date/Time: 12/15/19 09:47 Coding Level of Care Code ED Hospice/Home Health Aide for Ashish Fwd Exam Comprehensive
[2019-12-15 06:29] LABS: Basophils # 0.1 10^3/uL (0.0-0.1); Basophils % 0.4 %; Eosinophils % 0.2 %; Hematocrit 33.8 % (37.0-47.0); Hemoglobin 9.5 g/dL (11.5-15.3); Lymphocytes # 1.3 10^3/uL (0.8-4.8); Lymphocytes % 7.7 %; Mean Corpuscular HGB Conc 28.1 g/dL (30.0-36.0); Mean Corpuscular Hemoglobin 22.4 pg (28.0-34.0); Mean Corpuscular Volume 79.5 fL (81-99); Mean Platelet Volume 9.8 fL (7.4-10.4); Monocytes # 0.6 10^3/uL (0.2-0.9); Monocytes % 3.8 %; Neutrophils # 14.34 10^3/uL (1.8-7.7); Neutrophils % 87.2 %; Nucleated Red Blood Cells % 0 %; Platelet Count 678 10^3/cmm (130-400); Red Blood Count 4.25 10^6/uL (4.1-5.3); Red Cell Distribution Width 19.6 % (12.1-15.1); White Blood Count 16.5 10^3/uL (4.0-10.0)
--- NOTE | 2019-12-15 06:40 | PC.NURSE ---
BG 133
[2019-12-15 06:41] LABS: Glucose Point of Care 133 mg/dL (70-110)
[2019-12-15] MEDS: fentaNYL 50 mcg/mL INJ 2mL 25 MCG IVP (06:51)
[2019-12-15] MEDS: fentaNYL 50 mcg/mL INJ 2mL IVP (07:26)
[2019-12-15] MEDS: sodium chloride 0.9% 500 ML 999 ML IV (07:26)
[2019-12-15 07:33] LABS: Alanine Aminotransferase 10 U/L (0-33); Albumin Level 2.3 g/dL (3.5-5.2); Alkaline Phosphatase 171 IU/L (35-105); Blood Urea Nitrogen 18 mg/dL (8-23); Calcium 8.6 mg/dL (8.5-10.5); Carbon Dioxide 22 mmol/L (22-29); Chloride 99 mmol/L (98-107); Creatine Phosphokinase 70 U/L (26-192); Creatinine Clr Calc Pharmacy 67.6056; Globulin 4.4 g/dL (1.3-4.6); Glomerular Filtration Rate 99.7 mL/min (90-130); Glucose 134 mg/dL (65-115); Osmolality Calculated 296 mOsm/kg (285-295); Sodium 141 mmol/L (136-145); Total Bilirubin 0.2 mg/dL (0.15-1.2); Total Protein 6.7 g/dL (6.6-8.7)
[2019-12-15 07:43] LABS: Anion Gap 24.6 (5-19); Aspartate Amino Transferase 15 U/L (0-32); Potassium 4.6 mmol/L (3.5-5.1)
== END 2019-12-15 09:47 ==
PROVIDERS: Emergency Provider Emergency Medicine; PCP Family Medicine
DX: S42.302A Unspecified fracture of shaft of humerus, left arm, initial encounter for closed fracture (principal); G35 Multiple sclerosis; Z86.73 Personal history of transient ischemic attack (TIA), and cerebral infarction without residual deficits; F03.90 Unspecified dementia, unspecified severity, without behavioral disturbance, psychotic disturbance, mood disturbance, and anxiety; E11.9 Type 2 diabetes mellitus without complications; Z99.81 Dependence on supplemental oxygen; I48.0 Paroxysmal atrial fibrillation; Z87.891 Personal history of nicotine dependence; W19.XXXA Unspecified fall, initial encounter; Y92.129 Unspecified place in nursing home as the place of occurrence of the external cause
CPT/HCPCS: 12345; 29105; 36416; 70450; 72125; 73060; 80053; 82550; 82962; 85025; 96365; 96375; 99283; 99284; J3010; J7040